=== PATIENT | female | born 1970 | race Caucasian/White ===

== ENCOUNTER 2016-03-19 21:36 | Observation (INO) | payer OTHER ==
[2016-03-19] MEDS ORDERED: Sodium Chloride 0.9% 1000 ML 1,000 ML ONE ×2 (22:09→23:31)
[2016-03-19] MEDS ORDERED: Zofran 4 MG/2 ML VIAL IV ONE (22:10)
[2016-03-19] MEDS ORDERED: Sodium Chloride 0.9% 1000 ML 1,000 ML IV STA ×2 (22:10→23:11)
[2016-03-19 22:16] LABS: BASOPHIL % 0.4 % (0.0-0.4); Lymphocytes % 25.7 % (24.0-44.0); Mean Corpuscular Hemoglobin 29.7 pg (26-32); Mean Platelet Volume 9.8 fl (6-9.5); Monocytes % 4.9 % (0.0-12.0); Platelet Count 401 K/mm3 (150-450); Red Blood Count 5.01 M/mm3 (4.1-5.4); White Blood Count 12.5 K/mm3 (4.0-10.5)
[2016-03-19] MEDS ORDERED: Zofran 4 MG/2 ML VIAL ONE (22:36)
[2016-03-19 22:37] LABS: Collection Type CATH
[2016-03-19 22:37] LABS: ALBUMIN 4.5 g/dL (3.4-5.0); ANION GAP 20.7 MEQ/L (5-15); BILIRUBIN,TOTAL 0.6 mg/dL (0.2-1.0); Carbon Dioxide 19.9 mEq/L (21-32); Total Protein 8.4 gm/dL (6.4-8.2)
[2016-03-19 22:38] LABS: Bacteria RARE /HPF (NEGATIVE); COMPLETE URINE MICROSCOPIC? YES; Epithelial Cells RARE /HPF (FEW); Mucus MODERATE /HPF (NEGATIVE)
--- NOTE | 2016-03-19 23:07 | ERPHSYRPT ---
- History of Present Illness Time Seen by Provider: 03/19/16 22:20 Historian: patient Exam Limitations: clinical condition Patient Subjective Stated Complaint: pt arr crying and stating she just wanat it to stop -after taking care of her she has been sick all day with cough and b= vomiting and when her sons got home she couldn't carry on a conversation because she was confused -she can't tell me is she has taken her med or not she has head leg and back pain all day Triage Nursing Assessment: pt is awake and alert and able to answer questions but slow to answer questions Physician History: PATIENT COMPLAINS OF FREQUENT EPISODES OF EMESIS, WATERY DIARRHEA SINCE LAST NIGHT. HAS LOW GRADE FEVER AND PRODUCTIVE COUGH, AND ABDOMNAL CRAMPS. FAMILY STATES PATIENT HAS BEEN LETHARGIC AND CONFUSED ON OCCASION. Timing/Duration: yesterday Activities at Onset: none Quality: cramping Abdominal Pain Onset Location: periumbilical Pain Radiation: no radiation Severity of Pain-Max: mild Severity of Pain-Current: mild Modifying Factors: Improves With: vomiting, other (DIARRHEA) Associated Symptoms: diarrhea, fever/chills, nausea Previous symptoms: same symptoms as today Allergies/Adverse Reactions: Sulfa (Sulfonamide Antibiotics) Allergy (Intermediate, Verified 08/19/15 16:55) [facility] Home Medications: Alprazolam 1 mg [Xanax 1 mg] 2 mg PO TID 02/14/14 [History] Gabapentin [Neurontin] 600 mg PO QID 02/14/14 [History] Hydrocodone/APAP 10/325 mg [[place] 10/325 MG Tablet] 1 tab PO Q4H 02/17/14 [History] Fluoxetine HCl [Prozac] 20 mg PO BID 11/04/14 [History] Hx Tetanus, Diphtheria Vaccination/Date Given: No Hx Influenza Vaccination/Date Given: No Hx Pneumococcal Vaccination/Date Given: No - Review of Systems Constitutional: Fever Eyes: No Symptoms Ears, Nose, & Throat: No Symptoms Respiratory: Cough, No Dyspnea Cardiac: No Symptoms, No Chest Pain, No Edema, No Syncope Abdominal/Gastrointestinal: Abdominal Pain, Nausea, Vomiting, Diarrhea Genitourinary Symptoms: No Symptoms, No Dysuria Musculoskeletal: No Symptoms, No Back Pain, No Neck Pain Skin: No Rash Neurological: No Dizziness, No Focal Weakness, No Sensory Changes Psychological: No Symptoms Endocrine: No Symptoms All Other Systems: Reviewed and Negative - Past Medical History Pertinent Past Medical History: Yes Neurological History: Migraines, Peripheral Neuropathy ENT History: No Pertinent History Cardiac History: No Pertinent History Respiratory History: No Pertinent History Endocrine Medical History: No Pertinent History Musculoskeletal History: Degenerative Disk Disease, Fibromyalgia, Osteoarthritis , Rheumatoid Arthritis, Other GI Medical History: Colitis, Crohns Disease History: No Pertinent History Psycho-Social History: Anxiety, Depression Female Reproductive Disorders: No Pertinent History Other Medical History: DJD - BULGING DISCS. SPONDILOSIS - Past Surgical History Past Surgical History: Yes Neuro Surgical History: No Pertinent History Cardiac: No Pertinent History Respiratory: No Pertinent History Gastrointestinal: Cholecystectomy Genitourinary: No Pertinent History Musculoskeletal: Orthopedic Surgery Female Surgical History: Section Other Surgical History: BACK SURGERY. TOE SURGERY--RECONSTRUCTION - Social History Smoking Status: Never smoker Exposure to second hand smoke: No Drug Use: none Patient Lives Alone: No - Female History Hx Last Menstrual Period: 15 yrs Hx Now: No - Nursing Vital Signs Nursing Vital Signs: Initial Vital Signs Temperature 100.3 F Temperature Source Rectal Pulse Rate 87 Respiratory Rate 14 Blood Pressure 130/100 Pain Intensity 7 - Physical Exam General Appearance: no apparent distress, lethargy (SLIGHT LETHARGIC BUT ANSWERS QUESTIONS APPROPRIATELY) Eye Exam: PERRL/EOMI, eyes nml inspection Ears, Nose, Throat Exam: normal ENT inspection, pharynx normal, moist mucous membranes Neck Exam: normal inspection, non-tender, supple, full range of motion Respiratory Exam: normal breath sounds, lungs clear, No respiratory distress Cardiovascular Exam: regular rate/rhythm, normal heart sounds Gastrointestinal/Abdomen Exam: soft, normal bowel sounds, No tenderness ( MINIMAL PERIUMBILICAL TENDERNESS), No mass Back Exam: normal inspection, normal range of motion, No CVA tenderness, No vertebral tenderness Extremity Exam: normal inspection, normal range of motion, pelvis stable Neurologic Exam: alert, oriented x 3, cooperative, normal mood/affect, nml cerebellar function, sensation nml, No motor deficits Skin Exam: normal color, warm, dry SpO2 Interpretation: normal SpO2: 95 - Radiology Exams Chest X-ray Interpretation: Interpreted by me (RIGHT PERIHILAR INFILTRATE) - CT Exams Abdomen/Pelvis CT Interpretation: Tele-radiologist Report (NO FINDINGS GO SUGGEST APPENDICITIS , NO MUCOSAL WALL THICKENING, NO FREE AIR) Ordered Tests: Active Orders 24 hr Category Date Time Status IV Insertion STAT Care 03/19/16 22:10 Active cath [Cath for Specimen-Straight] STAT Care 03/19/16 22:24 Active ABDOMEN WITHOUT CONTRAST [CT] Stat Exams 03/19/16 22:11 Taken CHEST 1 VIEW (PORTABLE) Stat Exams 03/19/16 22:12 Taken AMYLASE Stat Lab 03/19/16 22:05 Completed BLOOD CULTURE Stat Lab 03/19/16 22:30 Received CBC W DIFF Stat Lab 03/19/16 22:05 Completed CMP Stat Lab 03/19/16 22:05 Completed CULTURE, THROAT Stat Lab 03/19/16 22:12 Received HCG,QUALITATIVE URINE Stat Lab 03/19/16 22:30 Completed STREP SCREEN-BETA A Stat Lab 03/19/16 22:12 Completed UA W/ MICROSCOPIC Stat Lab 03/19/16 22:20 Completed Transfer Order Routine Transfer 03/20/16 00:38 Ordered Medication Summary Generic Name Dose Route Start Last Admin Trade Name Freq PRN Reason Stop Dose Admin Potassium Chloride 100 mls @ 50 mls/hr 03/19/16 23:11 03/19/16 23:35 Potassium Chloride 20 Meq In Water 100ml IV 03/20/16 01:10 50 mls/hr STAT ONE Administration Discontinued Medications Generic Name Dose Route Start Last Admin Trade Name Freq PRN Reason Stop Dose Admin Sodium Chloride 1,000 mls @ 999 mls/hr 03/19/16 22:10 03/19/16 22:37 Sodium Chloride 0.9% 1000 Ml IV 03/19/16 23:10 999 mls/hr .Q1H1M STA Administration Sodium Chloride Confirm 03/19/16 22:09 Sodium Chloride 0.9% 1000 Ml Administered 03/19/16 22:10 Dose 1,000 mls @ ud .ROUTE .STK-MED ONE Sodium Chloride 1,000 mls @ 999 mls/hr 03/19/16 23:11 03/19/16 23:35 Sodium Chloride 0.9% 1000 Ml IV 03/20/16 00:11 999 mls/hr .Q1H1M STA Administration Sodium Chloride Confirm 03/19/16 23:31 Sodium Chloride 0.9% 1000 Ml Administered 03/19/16 23:32 Dose 1,000 mls @ ud .ROUTE .STK-MED ONE Potassium Chloride Confirm 03/19/16 23:31 Potassium Chloride 20 Meq In Water 100ml Administered 03/19/16 23:32 Dose 100 mls @ ud IV .STK-MED ONE Ceftriaxone Sodium/Dextrose 50 mls @ 100 mls/hr 03/20/16 00:10 03/20/16 00:36 Rocephin 1 Gm-D5w 50 Ml Bag IV 03/20/16 00:39 100 mls/hr STAT ONE Administration Ceftriaxone Sodium/Dextrose Confirm 03/20/16 00:19 Rocephin 1 Gm-D5w 50 Ml Bag Administered 03/20/16 00:20 Dose 50 mls @ ud IV .STK-MED ONE Ondansetron HCl 4 mg 03/19/16 22:10 03/19/16 22:37 Zofran 4 Mg/2 Ml Vial IV 03/19/16 22:11 4 mg STAT ONE Administration Ondansetron HCl Confirm 03/19/16 22:36 Zofran 4 Mg/2 Ml Vial Administered 03/19/16 22:37 Dose 4 mg .ROUTE .STK-MED ONE Lab/Rad Data: Laboratory Result Diagrams 03/19/16 22:05 03/19/16 22:05 Laboratory Results 03/19/16 03/19/16 03/19/16 Range/Units 22:30 22:20 22:12 WBC (4.0-10.5) K/mm3 RBC (4.1-5.4) M/mm3 Hgb (12.0-16.0) gm/dl Hct (35-47) % MCV (78-100) fl MCH (26-32) pg MCHC (32-36) g/dl RDW (11.5-14.0) % Plt Count (150-450) K/mm3 MPV (6-9.5) fl Gran % (36.0-66.0) % Lymphocytes % (24.0-44.0) % Monocytes % (0.0-12.0) % Eosinophils % (0.00-5.0) % Basophils % (0.0-0.4) % Basophils # (0-0.4) Sodium (136-145) mEq/L Potassium (3.5-5.1) mEq/L Chloride (98-107) mEq/L Carbon Dioxide (21-32) mEq/L Anion Gap (5-15) MEQ/L BUN (9-20) mg/dL Creatinine (0.55-1.30) mg/dl Estimated GFR ML/MIN Glucose (70-110) MG/DL Calcium (8.5-10.1) mg/dL Total Bilirubin (0.2-1.0) mg/dL AST (15-37) U/L ALT (12-78) U/L Alkaline Phosphatase (46-116) U/L Serum Total Protein (6.4-8.2) gm/dL Albumin (3.4-5.0) g/dL Amylase (25-115) U/L Ur Collection Type CATH Urine Color STRAW (YELLOW) Urine Appearance CLEAR (CLEAR) Urine pH 6.0 (5-6) Ur Specific [place] >=1.030 (1.005-1.025) Urine Protein 100 (Negative) Urine Glucose (UA) NEGATIVE (NEGATIVE) mg/dL Urine Ketones SMALL-15 (NEGATIVE) Urine Nitrite NEGATIVE (NEGATIVE) Urine Bilirubin MODERATE (NEGATIVE) Urine Urobilinogen 0.2 (0-1) mg/dL Urine WBC (Auto) NEGATIVE (NEGATIVE) Urine RBC (Auto) MODERATE (0-5) Damien/ul Urine Microscopic RBC 5-10 (0-2) /HPF Ur Epithelial Cells RARE (FEW) /HPF Urine Bacteria RARE (NEGATIVE) /HPF Urine Mucus MODERATE (NEGATIVE) /HPF Urine HCG, Qual NEGATIVE (Negative) Streptococcus Screen NEGATIVE (Negative) Specimen Received 03/19/16:2220 03/19/16 03/19/16 Range/Units 22:05 22:05 WBC 12.5 H (4.0-10.5) K/mm3 RBC 5.01 (4.1-5.4) M/mm3 Hgb 14.9 (12.0-16.0) gm/dl Hct 46.1 (35-47) % MCV 92.0 (78-100) fl MCH 29.7 (26-32) pg MCHC 32.3 (32-36) g/dl RDW 14.0 (11.5-14.0) % Plt Count 401 (150-450) K/mm3 MPV 9.8 H (6-9.5) fl Gran % 68.0 H (36.0-66.0) % Lymphocytes % 25.7 (24.0-44.0) % Monocytes % 4.9 (0.0-12.0) % Eosinophils % 1.0 (0.00-5.0) % Basophils % 0.4 (0.0-0.4) % Basophils # 0.05 (0-0.4) Sodium 137 (136-145) mEq/L Potassium 3.0 L* (3.5-5.1) mEq/L Chloride 99 (98-107) mEq/L Carbon Dioxide 19.9 L (21-32) mEq/L Anion Gap 20.7 H (5-15) MEQ/L BUN 18 (9-20) mg/dL Creatinine 1.15 (0.55-1.30) mg/dl Estimated GFR 54 ML/MIN Glucose 129 H (70-110) MG/DL Calcium 9.1 (8.5-10.1) mg/dL Total Bilirubin 0.6 (0.2-1.0) mg/dL AST 20 (15-37) U/L ALT 10 L (12-78) U/L Alkaline Phosphatase 101 (46-116) U/L Serum Total Protein 8.4 H (6.4-8.2) gm/dL Albumin 4.5 (3.4-5.0) g/dL Amylase 24 L (25-115) U/L Ur Collection Type Urine Color (YELLOW) Urine Appearance (CLEAR) Urine pH (5-6) Ur Specific [place] (1.005-1.025) Urine Protein (Negative) Urine Glucose (UA) (NEGATIVE) mg/dL Urine Ketones (NEGATIVE) Urine Nitrite (NEGATIVE) Urine Bilirubin (NEGATIVE) Urine Urobilinogen (0-1) mg/dL Urine WBC (Auto) (NEGATIVE) Urine RBC (Auto) (0-5) Damien/ul Urine Microscopic RBC (0-2) /HPF Ur Epithelial Cells (FEW) /HPF Urine Bacteria (NEGATIVE) /HPF Urine Mucus (NEGATIVE) /HPF Urine HCG, Qual (Negative) Streptococcus Screen (Negative) Specimen Received - Progress Progress: improved Progress Note: 03/19/16 23:08 PATIENT GIVEN IV BOLUS NORMAL SALINE 2 LITERS, K-JALEN 20MEQ IVPB, ROCEPHIN 1MG IVPB 03/20/16 00:35 Discussed with : Veronica Will see patient in: hospital (observation) (AT 0035) Counseled pt/family regarding: lab results, diagnosis, need for follow-up, rad results - Departure Time of Disposition: 00:40 Departure Disposition: Observation Clinical Impression: ACUTE GASTROENTERITIS, ACUTE BRONCHITIS, DEHYDRATION, HYPODKALEMIA Condition: Stable Critical Care Time: No Referrals: DEJAN DANIELS MD [Primary Care Provider] -
[2016-03-19] MEDS ORDERED: POTASSIUM CHLORIDE 20 mEq IN WATER 100ML 100 ML IV ONE ×2 (23:11→23:31)
[2016-03-20] MEDS ORDERED: ROCEPHIN 1 Gm-D5w 50 ml Bag** 50 ML IV ONE ×2 (00:10→00:19)
[2016-03-20] MEDS ORDERED: Sodium Chloride 0.9% 1000 ML 1,000 ML IV SCH (01:37)
[2016-03-20] MEDS ORDERED: TYLENOL 325 MG PO PRN (01:37)
[2016-03-20] MEDS ORDERED: POTASSIUM CHLORIDE 20 mEq IN WATER 100ML 100 ML IV ONE (01:58)
[2016-03-20 06:10] LABS: ANION GAP 14.9 MEQ/L (5-15); BLOOD UREA NITROGEN 13 mg/dL (9-20); CHLORIDE 104 mEq/L (98-107); Carbon Dioxide 22.8 mEq/L (21-32); Glucose 102 MG/DL (70-110); Potassium 3.6 mEq/L (3.5-5.1); SODIUM 138 mEq/L (136-145)
--- NOTE | 2016-03-20 09:02 | XRAY ---
Indication: Abdominal pain, emesis, and elevated WBC. History of Crohn's disease. Multiple contiguous axial images obtained through the abdomen and pelvis without contrast as ordered. Comparison: August 19, 2015 Lung bases demonstrate minimal bibasilar dependent atelectasis. Heart is not enlarged. Images through the abdomen is slightly degraded by respiration/motion artifact. Noncontrasted stomach and bowel loops appear nonobstructed. No abnormal bowel wall thickening. Appendix not seen. No free fluid/air. Again cholecystectomy clips. Remaining liver, pancreas, spleen, adrenal glands, kidneys, ureters, bladder, uterus, and aorta appear unremarkable for noncontrast exam. Osseous structures intact again with lumbosacral junction degenerative changes. Impression: Again negative CT abdomen/pelvis without contrast exam. Comment: Preliminary interpretation was made by [facility]. No discrepancy. CT DI is 23.68
--- NOTE | 2016-03-20 09:05 | XRAY ---
Indication: Cough. Comparison: February 17, 2014 Portable chest less inflated again demonstrating normal heart, lungs, and bony thorax.
[2016-03-20] MEDS ORDERED: XANAX 1 MG PO ONE (09:51)
--- NOTE | 2016-03-20 09:59 | PCM.HP ---
History of Present Illness - Chief Complaint Chief Complaint: ACUTE GASTROENTERITIS/DEHYDRATION Date: 03/20/16 History of Present Illness: is a 45 year old female. seen yesterday in the clinic she had been out of her alprazolam for 3 or 4 days and was on 6 mg daily. She was having withdrawal symptoms. She was given new Rx for 4 mg per day but was also having cough, nausea, vomiting, diarrhea and then started having chills and came to ED> This morning she is confused and hallucinating and not oriented to time or place. - Review of Systems Constitutional: Other (Unable to obtain secondary to her mental status. ) Medications & Allergies Home Medications: Home Medication List Alprazolam 1 mg [Xanax 1 mg] 2 mg PO TID 02/14/14 [History Confirmed 03/20] Gabapentin [Neurontin] 600 mg PO QID 02/14/14 [History Confirmed 03/20/16] Hydrocodone/APAP 10/325 mg [[place] 10/325 MG Tablet] 1 tab PO Q4H 02/17/14 [History Confirmed 03/20/16] Amitriptyline HCl 25 mg [Elavil 25 mg] 25 mg PO HS #30 tablet 08/21/15 [Rx ] Bupropion HCl [Bupropion HCl Sr] 150 mg PO BID 03/20/16 [History Confirmed 03/20] Duloxetine HCl [Cymbalta] 60 mg PO DAILY 03/20/16 [History Confirmed 03/20/16] Orphenadrine Citrate 100 mg [Norflex 100 MG Tablet] 100 mg PO BID [History Confirmed 03/20/16] Allergies/Adverse Reactions: Allergies Allergy/AdvReac Type Severity Reaction Status Date / Time Sulfa (Sulfonamide Allergy Intermediate [facility] Verified 08/19/15 16:55 Antibiotics) - Past Medical History Past Medical History: Yes Neurological History: Migraines, Peripheral Neuropathy ENT History: No Pertinent History Cardiac History: No Pertinent History Respiratory History: No Pertinent History Endocrine Medical History: No Pertinent History Musculoskelatal History: Degenerative Disk Disease, Fibromyalgia, Osteoarthritis , Rheumatoid Arthritis, Other GI Medical History: Colitis, Crohns Disease History: No Pertinent History Pyscho-Social History: Anxiety, Depression Reproductive Disorders: No Pertinent History Comment: DJD - BULGING DISCS. SPONDILOSIS, sciatica - Female History Hx Last Menstrual Period: 15 yrs Are you now?: No - Past Surgical History Past Surgical History: Yes Neuro Surgical History: No Pertinent History Cardiac History: No Pertinent History Respiratory Surgery: No Pertinent History GI Surgical History: Cholecystectomy Genitourinary Surgical Hx: No Pertinent History Musculskeletal Surgical Hx: Orthopedic Surgery Female Surgical History: Section Other Surgical History: BACK SURGERY. TOE SURGERY--RECONSTRUCTION - Social History Smoking Status: Former smoker Exposure to second hand smoke: No Alcohol: None Drug Use: none - Physical Exam Vital Signs: Vital Signs - 24 hr Temp Pulse Resp BP BP Pulse Ox 03/20/16 07:16 98 F 87 20 126/68 95 03/20/16 04:00 87 20 94 L 03/20/16 02:12 97.9 F 95 H 24 128/77 96 03/20/16 00:53 95 03/19/16 22:50 87 14 99 03/19/16 22:07 100.3 F 86 20 130/100 95 General Appearance: no apparent distress Neurologic Exam: No oriented x 3, No motor deficits Eye Exam: No scleral icterus, No pale conjunctivae Ears, Nose, Throat Exam: moist mucous membranes Neck Exam: normal inspection, non-tender, supple (mild basilar rales) Respiratory Exam: normal breath sounds, No rhonchi, No wheezing Cardiovascular Exam: regular rate/rhythm, normal heart sounds Gastrointestinal/Abdomen Exam: soft, normal bowel sounds, No tenderness, No distention Extremity Exam: normal inspection, No calf tenderness, No pedal edema Skin Exam: warm, dry, No rash Results - Labs Lab/Micro Results: Lab Results-Last 24 Hours 03/20/16 Range/Units 05:22 Sodium 138 (136-145) mEq/L Potassium 3.6 (3.5-5.1) mEq/L Chloride 104 (98-107) mEq/L Carbon Dioxide 22.8 (21-32) mEq/L Anion Gap 14.9 (5-15) MEQ/L BUN 13 (9-20) mg/dL Creatinine 0.91 (0.55-1.30) mg/dl Estimated GFR > 60 ML/MIN Glucose 102 (70-110) MG/DL Calcium 8.1 L (8.5-10.1) mg/dL Assessment/Plan (1) Altered mental status Current Visit: Yes Status: Acute Qualifiers: Altered mental status type: delirium Qualified Code(s): R41.0 - Disorientation, unspecified Assessment & Plan: with hallucinations currently secondary to her prescribed alprazolam that she abruptly stopped with current hallucinations restart her benzo will continue with decreased dose as prescribed in clinic give her 2mg now then back down to 1 mg four times per day restart her gabapentin and celexa the cxr and ct were normal her hydration appears better rule out influenza treat the withdrawal symptoms home when not hallucinating and oriented and improving Code(s): R41.82 - ALTERED MENTAL STATUS, UNSPECIFIED (2) Depression Current Visit: Yes Status: Acute Code(s): F32.9 - MAJOR DEPRESSIVE DISORDER , SINGLE EPISODE, UNSPECIFIED (3) Sinusitis Current Visit: Yes Status: Acute Code(s): J32.9 - CHRONIC SINUSITIS, UNSPECIFIED (4) History of ulcerative colitis Current Visit: Yes Status: Chronic Code(s): Z87.19 - PERSONAL HISTORY OF OTHER DISEASES OF THE DIGESTIVE SYSTEM
[2016-03-20] MEDS ORDERED: Zithromax 500 MG/ 250 ML NaCl Premix 250 ML IV SCH (10:00)
[2016-03-20] MEDS ORDERED: Prozac 20 MG PO SCH (10:00)
[2016-03-20] MEDS: Cymbalta 30 MG Capsule PO SCH (10:17)
[2016-03-20] MEDS: Wellbutrin SR 150 MG PO SCH ×2 (10:18→22:09)
[2016-03-20] MEDS: ENOXAPARIN SODIUM SQ SCH (10:18)
[2016-03-20] MEDS: NEURONTIN 300 MG PO SCH ×4 (10:18→22:08)
[2016-03-20] MEDS: PROTONIX 40 MG IV IV SCH (10:19)
[2016-03-20] MEDS: XANAX 1 MG PO SCH ×3 (12:41→22:08)
[2016-03-20] MEDS: Norco 10/325 MG Tablet PO PRN ×3 (12:45→22:09)
[2016-03-20] MEDS: DELZICOL PO SCH ×2 (16:53→22:10)
[2016-03-20] MEDS: ROCEPHIN 1 Gm-D5w 50 ml Bag** 50 ML IV SCH (22:48)
[2016-03-21] MEDS: Wellbutrin SR 150 MG PO SCH ×2 (08:04→21:58)
[2016-03-21] MEDS: XANAX 1 MG PO SCH ×4 (08:04→21:58)
[2016-03-21] MEDS: DELZICOL PO SCH (08:05)
[2016-03-21] MEDS: NEURONTIN 300 MG PO SCH ×4 (08:05→21:58)
[2016-03-21] MEDS: ENOXAPARIN SODIUM SQ SCH (08:05)
[2016-03-21] MEDS: Cymbalta 30 MG Capsule PO SCH (08:05)
[2016-03-21] MEDS: Norco 10/325 MG Tablet PO PRN ×3 (08:05→19:44)
[2016-03-21] MEDS: PROTONIX 40 MG IV IV SCH (08:06)
[2016-03-21 08:59] LABS: BASOPHIL % 0.6 % (0.0-0.4); Eosinophil % 2.7 % (0.00-5.0); Granulocytes % 61.9 % (36.0-66.0); Lymphocytes % 29.3 % (24.0-44.0); Mean Cell Volume 95.7 fl (78-100); Mean Corpuscular Hemoglobin 29.7 pg (26-32); Mean Platelet Volume 9.4 fl (6-9.5); Monocytes % 5.5 % (0.0-12.0); Platelet Count 354 K/mm3 (150-450); Red Blood Count 4.37 M/mm3 (4.1-5.4); Red Cell Distribution Width 14.2 % (11.5-14.0); White Blood Count 9.7 K/mm3 (4.0-10.5)
[2016-03-21 09:16] LABS: ANION GAP 14.9 MEQ/L (5-15); BLOOD UREA NITROGEN 12 mg/dL (9-20); CHLORIDE 108 mEq/L (98-107); Carbon Dioxide 23.1 mEq/L (21-32); Glucose 117 MG/DL (70-110); Potassium 3.2 mEq/L (3.5-5.1); SODIUM 143 mEq/L (136-145)
[2016-03-21] MEDS ORDERED: Klor Con 10 MEQ PO ONE (11:49)
[2016-03-21] MEDS: ASACOL HD PO SCH ×2 (13:29→21:58)
--- NOTE | 2016-03-21 18:59 | PCM.NOTE ---
Date and Time: 03/21/161855 Subjective Assessment: her confusion is improving although she is still trying to rationalize some of the things that happened yesterday and not all of this makes since right now with what she is saying. she states she feels very tired and is getting a headache but otherwise starting to feel better and think more clearly. Objective Exam General Appearance: no apparent distress Neurologic Exam: alert, oriented x 3, No slurred speech Skin Exam: warm, dry Neck Exam: non-tender, supple Lymphatic Exam: No adenopathy Respiratory Exam: lungs clear Cardiovascular Exam: regular rate/rhythm, normal heart sounds Gastrointestinal/Abdomen Exam: soft, normal bowel sounds, No tenderness Extremity Exam: normal inspection, No pedal edema OBJECTIVE DATA Vital Signs: Vital Signs - 24 hr Temp Pulse Resp BP Pulse Ox 03/21/16 16:38 97.5 F 84 20 126/80 98 03/21/16 12:42 98.1 F 98 H 20 126/58 98 03/21/16 12:00 20 03/21/16 08:00 20 03/21/16 07:08 97.8 F 82 20 136/78 96 03/21/16 04:00 99.6 F 100 H 18 134/73 95 03/21/16 00:00 99.6 F 100 H 18 124/59 95 03/20/16 20:00 98.7 F 95 H 16 130/87 96 Pain Assessment - Last Documented Pain Intensity 7 Pain Scale Used 0-10 Pain Scale Intake and Output: Intake & Output 03/19/16 03/20/16 03/21/16 03/22/16 11:59 11:59 11:59 11:59 Intake Total 220 1150 600 Output Total 900 Balance 220 1150 -300 Weight 130.589 kg Lab Results: Lab Results-Last 24 Hours 03/21/16 03/21/16 Range/Units 08:54 08:54 WBC 9.7 (4.0-10.5) K/mm3 RBC 4.37 (4.1-5.4) M/mm3 Hgb 13.0 (12.0-16.0) gm/dl Hct 41.8 (35-47) % MCV 95.7 (78-100) fl MCH 29.7 (26-32) pg MCHC 31.1 L (32-36) g/dl RDW 14.2 H (11.5-14.0) % Plt Count 354 (150-450) K/mm3 MPV 9.4 (6-9.5) fl Gran % 61.9 (36.0-66.0) % Lymphocytes % 29.3 (24.0-44.0) % Monocytes % 5.5 (0.0-12.0) % Eosinophils % 2.7 (0.00-5.0) % Basophils % 0.6 (0.0-0.4) % Basophils # 0.06 (0-0.4) Sodium 143 (136-145) mEq/L Potassium 3.2 L (3.5-5.1) mEq/L Chloride 108 H (98-107) mEq/L Carbon Dioxide 23.1 (21-32) mEq/L Anion Gap 14.9 (5-15) MEQ/L BUN 12 (9-20) mg/dL Creatinine 1.02 (0.55-1.30) mg/dl Estimated GFR > 60 ML/MIN Glucose 117 H (70-110) MG/DL Calcium 8.4 L (8.5-10.1) mg/dL Assessment/Plan (1) Altered mental status Current Visit: Yes Status: Acute Qualifiers: Altered mental status type: delirium Qualified Code(s): R41.0 - Disorientation, unspecified Assessment & Plan: still suspect benzo withdraw due to her script running out with her taking as prescribed She is showing improvement now with restart but this am still some slight confusion with trying to rationalize yesterday's hallucinations She had + blood culture but only 1 tube Gram + await final ID continue ceftriaxone suspect contaminant at this time Code(s): R41.82 - ALTERED MENTAL STATUS, UNSPECIFIED (2) Depression Current Visit: Yes Status: Acute Code(s): F32.9 - MAJOR DEPRESSIVE DISORDER , SINGLE EPISODE, UNSPECIFIED (3) Sinusitis Current Visit: Yes Status: Acute Code(s): J32.9 - CHRONIC SINUSITIS, UNSPECIFIED (4) History of ulcerative colitis Current Visit: Yes Status: Chronic Code(s): Z87.19 - PERSONAL HISTORY OF OTHER DISEASES OF THE DIGESTIVE SYSTEM
[2016-03-21] MEDS: ROCEPHIN 1 Gm-D5w 50 ml Bag** 50 ML IV SCH (22:00)
[2016-03-22] MEDS: Norco 10/325 MG Tablet PO PRN (08:13)
[2016-03-22 08:16] VITALS: O2SAT 96
--- NOTE | 2016-03-22 09:23 | PCM.DCORD ---
- Discharge Discharge Date: 03/22/16 Disposition: Home, Self-Care Condition: Stable Prescriptions: Azithromycin 250 mg [Zithromax 250 MG TABLET] 250 mg PO DAILY #3 tablet Medications: Home Medications Alprazolam 1 mg [Xanax 1 mg] 2 mg PO QID 02/14/14 [Confirmed 03/20/16] Gabapentin [Neurontin] 600 mg PO QID 02/14/14 [Confirmed 03/20/16] Hydrocodone/APAP 10/325 mg [[place] 10/325 MG Tablet] 1 tab PO Q4H 02/17/14 [Confirmed 03/20/16] Albuterol Sulfate 6 ml IH Q4HPRN PRN 03/20/16 [Confirmed 03/20/16] Amitriptyline HCl 100 mg PO HS 03/20/16 [Confirmed 03/20/16] Bupropion HCl [Bupropion HCl Sr] 150 mg PO BID 03/20/16 [Confirmed 03/20/16] Duloxetine HCl [Cymbalta] 60 mg PO DAILY 03/20/16 [Confirmed 03/20/16] Medroxyprogesterone Acetate [Depo-Provera] 150 mg IM UD 03/20/16 [Confirmed 02/22] Mesalamine [Delzicol] 800 mg PO TID 03/20/16 [Confirmed 03/20/16] Naproxen [Naprosyn] 500 mg PO BIDPRN PRN 03/20/16 [Confirmed 03/20/16] Orphenadrine Citrate 100 mg [Norflex 100 MG Tablet] 100 mg PO BID [Confirmed 03/20/16] Active Inpatient Medications Acetaminophen (Tylenol 325 Mg) 650 mg PO Q4H PRN PRN PRN Reason: PAIN AND/OR FEVER Stop: 04/19/16 01:36 Last Admin: 03/21/16 13:34 Dose: 650 mg Acetaminophen/Hydrocodone Bitart ([place] 10/325 Mg Tablet) 1 tab PO QID PRN PRN PRN Reason: PAIN Stop: 03/25/16 09:52 Last Admin: 03/22/16 08:13 Dose: 1 tab Alprazolam (Xanax 1 Mg) 1 mg PO QID [facility] Stop: 04/19/16 12:59 Last Admin: 03/21/16 21:58 Dose: 1 mg Amitriptyline HCl (Amitriptyline Hcl 50 Mg Tablet) 100 mg PO HS [facility] Stop: 04/20/16 21:59 Last Admin: 03/21/16 21:58 Dose: 100 mg Bupropion HCl (Wellbutrin Sr 150 Mg) 150 mg PO BID [facility] Stop: 04/19/16 09:59 Last Admin: 03/21/16 21:58 Dose: 150 mg Duloxetine HCl (Cymbalta 30 Mg Capsule) 60 mg PO QAM [facility] Stop: 04/19/16 09:59 Last Admin: 03/21/16 08:05 Dose: 60 mg Enoxaparin Sodium (Enoxaparin Sodium) 40 mg SQ DAILY [facility] Stop: 04/19/16 09:59 Last Admin: 03/21/16 08:05 Dose: 40 mg Gabapentin (Neurontin 300 Mg) 600 mg PO QID [facility] Stop: 04/19/16 09:59 Last Admin: 03/21/16 21:58 Dose: 600 mg Ceftriaxone Sodium/Dextrose (Rocephin 1 Gm-D5w 50 Ml Bag) 50 mls @ 100 mls/ hr IV QPM [facility] Stop: 04/19/16 21:59 Last Admin: 03/21/16 22:00 Dose: 100 mls/hr Mesalamine (Asacol Hd) 800 mg PO TID [facility] Stop: 04/20/16 14:59 Last Admin: 03/21/16 21:58 Dose: 800 mg Pantoprazole Sodium (Protonix 40 Mg Iv) 40 mg IV Q24H10 [facility] Stop: 04/19/16 09:59 Last Admin: 03/21/16 08:06 Dose: 40 mg Follow up with: JOHN MORE [Primary Care Provider] - 1 Week Forms: Patient Portal Information
--- NOTE | 2016-03-22 09:23 | PCM.DS ---
Discharge Summary Date of Admission: 03/20/16 01:35 Date of Discharge: 03/22/16 Admitting Physician: JOHN MORE Primary Care Provider: JOHN MORE Allergies Allergies Sulfa (Sulfonamide Antibiotics) Allergy (Intermediate, Verified 08/19/15 16:55) [facility] Hospital Summary - Hospital Course Hospital Course: She presented with altred mental status and shortness of breath. She had refills remaining on her chronic alprazolam script that she was prescribed to take 6 mg per day but when she got to the pharmacy found out those refills had as they were written >[address] Asmita More had retired she needed an appointment for further refills of this and therefor went about 5 days without any alprazolam. She was seen in the clinic with withdraw symptoms but no hallucinations at that time and started back at a decreased dose at 1 mg four times per day. She however continued to worsen with confusion and was brought to the hospital. She was hallucinating seeing cats in her room that she explained how different staff members were playing with them. After restarting the alprazolam after 1 day she stopped hallucinating. She is under a great deal of family stressors but denies any abuse or misuse of her medications. She had been on chronically for severe panic attack and social phobias and refractory anxiety and depression. She was having acute sinusitis as well and with her initial blood culture report with gram + was on ceftriaxone but this turned out to be 1 of 2 staph epi with no clinical suspicion of bacteremia and thus contaminant. - Vitals & Intake/Output Vital Signs: Vital Signs Temperature 98.6 F 03/22/16 08:00 Pulse Rate 101 H 03/22/16 08:00 Respiratory Rate 20 03/22/16 08:00 Blood Pressure 120/75 03/22/16 08:00 O2 Sat by Pulse Oximetry 96 03/22/16 08:00 Intake & Output: Intake & Output 03/19/16 03/20/16 03/21/16 03/22/16 11:59 11:59 11:59 11:59 Intake Total 220 1150 1190 Output Total 900 Balance 220 1150 290 Weight 130.589 kg - Lab Result Diagrams: 03/21/16 08:54 03/21/16 08:54 Lab Results-Last 24 Hrs: Lab Results-Last 24 Hours 03/21/16 03/21/16 Range/Units 08:54 23:11 Sodium 143 (136-145) mEq/L Potassium 3.2 L (3.5-5.1) mEq/L Chloride 108 H (98-107) mEq/L Carbon Dioxide 23.1 (21-32) mEq/L Anion Gap 14.9 (5-15) MEQ/L BUN 12 (9-20) mg/dL Creatinine 1.02 (0.55-1.30) mg/dl Estimated GFR > 60 ML/MIN Glucose 117 H (70-110) MG/DL Calcium 8.4 L (8.5-10.1) mg/dL Stool Occult Blood NEGATIVE (Negative) Discharge Exam General Appearance: no apparent distress, obese, other (depressed affect) Neurologic Exam: oriented x 3, No confusion, No slurred speech, No aphasia, No dysarthria, No abnormal gait Skin Exam: warm, dry, No rash Eye Exam: PERRL, No scleral icterus, No pale conjunctivae Ears, Nose, Throat Exam: moist mucous membranes Neck Exam: non-tender, supple Lymphatic Exam: No adenopathy Respiratory Exam: normal breath sounds, lungs clear Cardiovascular Exam: regular rate/rhythm, normal heart sounds, normal peripheral pulses Gastrointestinal/Abdomen Exam: soft, normal bowel sounds, No tenderness, No distention Extremity Exam: normal inspection, No calf tenderness, No pedal edema Final Diagnosis/Problem List - Final Discharge Diagnosis/Problem (1) Benzodiazepine withdrawal with delirium Status: Resolved (2) Altered mental status Status: Resolved (3) Depression Status: Acute (4) Sinusitis Status: Acute (5) History of ulcerative colitis Status: Chronic (6) Anxiety Status: Chronic (7) Panic disorder Status: Chronic - Discharge Disposition: Home, Self-Care Condition: Stable Prescriptions: Azithromycin 250 mg [Zithromax 250 MG TABLET] 250 mg PO DAILY #3 tablet Medications: Home Medications Gabapentin [Neurontin] 600 mg PO QID 02/14/14 [Confirmed 03/20/16] Hydrocodone/APAP 10/325 mg [Petal 10/325 MG Tablet] 1 tab PO Q4H 02/17/14 [Confirmed 03/20/16] Albuterol Sulfate 6 ml IH Q4HPRN PRN 03/20/16 [Confirmed 03/20/16] Amitriptyline HCl 100 mg PO HS 03/20/16 [Confirmed 03/20/16] Bupropion HCl [Bupropion HCl Sr] 150 mg PO BID 03/20/16 [Confirmed 03/20/16] Duloxetine HCl [Cymbalta] 60 mg PO DAILY 03/20/16 [Confirmed 03/20/16] Medroxyprogesterone Acetate [Depo-Provera] 150 mg IM UD 03/20/16 [Confirmed 02/22] Mesalamine [Delzicol] 800 mg PO TID 03/20/16 [Confirmed 03/20/16] Naproxen [Naprosyn] 500 mg PO BIDPRN PRN 03/20/16 [Confirmed 03/20/16] AMITRIPTYLINE HCL 50 mg Tab [AMITRIPTYLINE HCL 50 mg Tablet] 100 mg PO HS #0 tablet 03/22/16 Alprazolam 1 mg [Xanax 1 mg] 1 mg PO QID #0 03/22/16 [Confirmed 03/20/16] Azithromycin 250 mg [Zithromax 250 MG TABLET] 250 mg PO DAILY #3 tablet Active Inpatient Medications Acetaminophen (Tylenol 325 Mg) 650 mg PO Q4H PRN PRN PRN Reason: PAIN AND/OR FEVER Stop: 04/19/16 01:36 Last Admin: 03/21/16 13:34 Dose: 650 mg Acetaminophen/Hydrocodone Bitart (Petal 10/325 Mg Tablet) 1 tab PO QID PRN PRN PRN Reason: PAIN Stop: 03/25/16 09:52 Last Admin: 03/22/16 08:13 Dose: 1 tab Alprazolam (Xanax 1 Mg) 1 mg PO QID [facility] Stop: 04/19/16 12:59 Last Admin: 03/21/16 21:58 Dose: 1 mg Amitriptyline HCl (Amitriptyline Hcl 50 Mg Tablet) 100 mg PO HS [facility] Stop: 04/20/16 21:59 Last Admin: 03/21/16 21:58 Dose: 100 mg Bupropion HCl (Wellbutrin Sr 150 Mg) 150 mg PO BID [facility] Stop: 04/19/16 09:59 Last Admin: 03/21/16 21:58 Dose: 150 mg Duloxetine HCl (Cymbalta 30 Mg Capsule) 60 mg PO QAM [facility] Stop: 04/19/16 09:59 Last Admin: 03/21/16 08:05 Dose: 60 mg Enoxaparin Sodium (Enoxaparin Sodium) 40 mg SQ DAILY [facility] Stop: 04/19/16 09:59 Last Admin: 03/21/16 08:05 Dose: 40 mg Gabapentin (Neurontin 300 Mg) 600 mg PO QID [facility] Stop: 04/19/16 09:59 Last Admin: 03/21/16 21:58 Dose: 600 mg Ceftriaxone Sodium/Dextrose (Rocephin 1 Gm-D5w 50 Ml Bag) 50 mls @ 100 mls/ hr IV QPM [facility] Stop: 04/19/16 21:59 Last Admin: 03/21/16 22:00 Dose: 100 mls/hr Mesalamine (Asacol Hd) 800 mg PO TID [facility] Stop: 04/20/16 14:59 Last Admin: 03/21/16 21:58 Dose: 800 mg Pantoprazole Sodium (Protonix 40 Mg Iv) 40 mg IV Q24H10 [facility] Stop: 04/19/16 09:59 Last Admin: 03/21/16 08:06 Dose: 40 mg Instructions: Drug Withdrawal Follow up with: JOHN MORE [Primary Care Provider] - 03/28/16 1:15 pm Forms: Discharge Instructions, Patient Portal Information
[2016-03-22] MEDS: PROTONIX 40 MG IV IV SCH (10:00)
[2016-03-22] MEDS: ASACOL HD PO SCH (10:03)
[2016-03-22] MEDS: Cymbalta 30 MG Capsule PO SCH (10:04)
[2016-03-22] MEDS: NEURONTIN 300 MG PO SCH (10:04)
[2016-03-22] MEDS: Wellbutrin SR 150 MG PO SCH (10:04)
[2016-03-22] MEDS: XANAX 1 MG PO SCH (10:04)
[2016-03-22] MEDS: ENOXAPARIN SODIUM SQ SCH (10:11)
[2016-03-22 12:06] VITALS: BP 116/72; PULSE 96
== END 2016-03-22 12:50 | disposition home or self-care (01) ==
LOC: ED 21:36 → MED SURG 03-20 01:35
PROVIDERS: ADMIT Family Medicine; ATTEND Family Medicine
DX: F19.231 Other psychoactive substance dependence with withdrawal delirium (principal); R41.82 Altered mental status, unspecified; F32.9 Major depressive disorder, single episode, unspecified; J01.90 Acute sinusitis, unspecified; Z87.19 Personal history of other diseases of the digestive system; F41.8 Other specified anxiety disorders
CPT/HCPCS: 36000; 36415; 71010; 74150; 80048; 80053; 81000; 82150; 82272; 84703; 85025; 87040; 87070; 87400; 87430; 87493; 93268; 96360; 96361; 96365; 96374; 99284; G0378; J0456; J0696; J1650; J2405; J3480; P9612

== ENCOUNTER 2017-04-26 13:39 | Observation (INO) | payer MEDICARE ==
--- NOTE | 2017-04-26 14:10 | ERPHSYRPT ---
<NAM OLSON. - Last Filed: 04/26/17 19:26> - History of Present Illness Time Seen by Provider: 04/26/17 14:02 Historian: patient, EMS Exam Limitations: no limitations Patient Subjective Stated Complaint: PT states "I was sitting there and all of a sudden I had pain in my chest that went up into my left jaw and left arm." Triage Nursing Assessment: Pt alert and oriented X 3, skin pwd. Pt stands without difficulty, able to speak in clear full sentences. no apparent respiratory distress. Physician History: The patient is a morbidly obese female brought in by ambulance from home where at approximately 1 PM while seated she developed a sudden onset of left-sided chest pain that was very sharp. Within a few minutes the pain preceded up her left neck into her left shoulder as well as down her left arm. She also had pain straight through to her back. She was sweaty. She was little bit short of breath. She said she got up and stumbled to the neighbors apartment. Soon after the onset of chest pain she started fixing some vegetable soup on her stove. She left the stove on when she went to get her neighbor. She told me she informed the neighbor about the soup that was on the stove and asked him to turn it off. The ambulance arrives and gives the patient 1 nitroglycerin without relief. They also gave her aspirin 324 mg. Currently her pain has subsided significantly. She now says she is slightly confused and feeling weak. Her past medical history is significant for hypertension, diabetes, high cholesterol, osteoarthritis, migraine headaches, fibromyalgia, anxiety, depression, and morbid obesity. She is currently on a list to have gastric bypass and has taken herself off of all of her pain medications. Timing/Duration: hour(s) (1) Activities at Onset: none Quality: sharpness, stabbing Location: substernal Chest Pain Radiation: neck, arm, back Severity of Pain-Max: severe Severity of Pain-Current: mild Modifying Factors: Improves With: nitroglycerin, aspirin Associated Symptoms: shortness of breath, hurts to breathe, diaphoresis, weakness Prior Chest Pain/Cardiac Workup: no prior chest pain Allergies/Adverse Reactions: Sulfa (Sulfonamide Antibiotics) Allergy (Intermediate, Verified 04/26/17 13:48) [facility] Home Medications: Amitriptyline HCl 100 mg PO HS 03/20/16 [History] Duloxetine HCl [Cymbalta] 60 mg PO DAILY 03/20/16 [History] Meloxicam 7.5 mg [Mobic 7.5 MG] 7.5 mg PO DAILY 07/04/16 [History] Hydrochlorothiazide [Hydrochlorothiazide] 25 mg PO DAILY 04/26/17 [History] Liraglutide [Victoza 2-Philippe] 1.8 mg SQ DAILY 04/26/17 [History] Lisinopril [Lisinopril] 10 mg PO DAILY 04/26/17 [History] Metformin HCl Xr 500 mg [Glucophage XR 500 MG] 1,000 mg PO HS 04/26/17 [ History] Pregabalin [Lyrica] 225 mg PO BID 04/26/17 [History] Hx Tetanus, Diphtheria Vaccination/Date Given: Yes Hx Influenza Vaccination/Date Given: Yes Hx Pneumococcal Vaccination/Date Given: No Immunizations Up to Date: Yes - Review of Systems Constitutional: No Fever, No Chills Eyes: No Symptoms Ears, Nose, & Throat: No Symptoms Respiratory: Dyspnea, No Cough Cardiac: Chest Pain Abdominal/Gastrointestinal: No Abdominal Pain, No Nausea, No Vomiting, No Diarrhea Genitourinary Symptoms: No Dysuria Musculoskeletal: No Back Pain, No Neck Pain Skin: No Rash Neurological: No Dizziness, No Focal Weakness, No Sensory Changes Psychological: No Symptoms Endocrine: No Symptoms Hematologic/Lymphatic: No Symptoms Immunological/Allergic: No Symptoms - Past Medical History Pertinent Past Medical History: Yes Neurological History: Migraines, Peripheral Neuropathy ENT History: No Pertinent History Cardiac History: Hypertension Respiratory History: Asthma, Bronchitis, COPD Endocrine Medical History: Diabetes Type II Musculoskeletal History: Arthritis, Fibromyalgia, Osteoarthritis, Rheumatoid Arthritis GI Medical History: Colitis, Crohns Disease History: No Pertinent History Psycho-Social History: Anxiety, Depression Female Reproductive Disorders: No Pertinent History Other Medical History: DJD - BULGING DISCS. SPONDILOSIS, sciatica - Past Surgical History Past Surgical History: Yes Neuro Surgical History: No Pertinent History Cardiac: No Pertinent History Respiratory: No Pertinent History Gastrointestinal: Cholecystectomy Genitourinary: No Pertinent History Musculoskeletal: Orthopedic Surgery Female Surgical History: Section Other Surgical History: BACK SURGERY. TOE SURGERY--RECONSTRUCTION - Social History Smoking Status: Never smoker Exposure to second hand smoke: Yes Drug Use: none Patient Lives Alone: Yes - Female History Hx Last Menstrual Period: depo shot, 19 years ago Hx Now: No - Nursing Vital Signs Nursing Vital Signs: Initial Vital Signs Temperature 98.7 F 04/26/17 13:40 Pulse Rate 112 H 04/26/17 13:40 Respiratory Rate 20 04/26/17 13:40 Blood Pressure 98/80 04/26/17 13:40 O2 Sat by Pulse Oximetry 93 L 04/26/17 13:40 Pain Scale Pain Intensity 2 - Physical Exam General Appearance: mild distress Eye Exam: PERRL/EOMI, eyes nml inspection Ears, Nose, Throat Exam: normal ENT inspection, moist mucous membranes Neck Exam: normal inspection, non-tender, supple, full range of motion Respiratory Exam: normal breath sounds, chest tenderness (palpation of left upper anterior chest reproduces the pain), lungs clear, No respiratory distress Cardiovascular Exam: regular rate/rhythm, normal heart sounds Gastrointestinal/Abdomen Exam: soft, other (obese), No tenderness, No mass Pelvic Exam: not done Rectal Exam: not done Back Exam: normal inspection, No CVA tenderness, No vertebral tenderness Extremity Exam: normal inspection, normal range of motion Neurologic Exam: alert, oriented x 3, cooperative, normal mood/affect, sensation nml, No motor deficits Skin Exam: normal color, warm, dry SpO2 Interpretation: normal SpO2: 93 Oxygen Delivery: Room Air - Course EKG Interpreted by Me: RATE, Sinus Rhythm, NORMAL AXIS, NORMAL ST-T Ordered Tests: Active Orders 24 hr Category Date Time Status Card Grinder Helper STAT Care 04/26/17 14:18 Active EKG-ER Only STAT Care 04/26/17 14:17 Active IV Insertion STAT Care 04/26/17 14:17 Active Oxygen-ED Only NASAL CANNULA 2 lpm Care 04/26/17 14:17 Active Pulse Oximetry (ED) STAT Care 04/26/17 14:17 Active CHEST 2 VIEWS (PA AND LAT) Stat Exams 04/26/17 14:17 Taken CHEST WITH CONTRAST [CT] Stat Exams 04/26/17 15:31 Taken CBC W DIFF Stat Lab 04/26/17 13:31 Completed CMP Stat Lab 04/26/17 13:31 Completed D-DIMER QUANTITATION Stat Lab 04/26/17 13:31 Completed NT PRO BNP Stat Lab 04/26/17 13:31 Completed TROPONIN Q3H Lab 04/26/17 13:31 Completed TROPONIN Q3H Lab 04/26/17 17:35 Completed TROPONIN Q3H Lab 04/26/17 20:30 Ordered TROPONIN Q3H Lab 04/26/17 23:30 Ordered TROPONIN Q3H Lab 04/27/17 02:30 Ordered Medication Summary Discontinued Medications Generic Name Dose Route Start Last Admin Trade Name Freq PRN Reason Stop Dose Admin Al Hydrox/Mg Hydrox/Simethicone Confirm 04/26/17 14:47 Maalox Es 30 Ml Unit Dose Administered 04/26/17 14:48 Dose 30 ml .ROUTE .STK-MED ONE Sodium Chloride 1,000 mls @ 999 mls/hr 04/26/17 15:04 04/26/17 15:05 Sodium Chloride 0.9% 1000 Ml IV 04/26/17 16:04 999 mls/hr .Q1H1M STA Administration Sodium Chloride Confirm 04/26/17 15:02 Sodium Chloride 0.9% 1000 Ml Administered 04/26/17 15:03 Dose 1,000 mls @ ud .ROUTE .STK-MED ONE Ketorolac Tromethamine 30 mg 04/26/17 14:19 04/26/17 14:50 Toradol 30 Mg Injection IV 04/26/17 14:20 30 mg STAT ONE Administration Ketorolac Tromethamine Confirm 04/26/17 14:47 Toradol 30 Mg Injection Administered 04/26/17 14:48 Dose 30 mg .ROUTE .STK-MED ONE Lidocaine HCl Confirm 04/26/17 14:47 Xylocaine Hcl Viscous * Administered 04/26/17 14:48 Dose 1 ml .ROUTE .STK-MED ONE Magnesium Hydroxide 45 ml 04/26/17 14:19 04/26/17 14:50 Gi Cocktail 45 Ml (Maalox/Lidocaine) PO 04/26/17 14:20 45 ml STAT ONE Administration Nitroglycerin 0.4 mg 04/26/17 14:17 04/26/17 14:50 Nitrostat 0.4 Mg (Ed) SL 04/26/17 14:18 0.4 mg STAT ONE Administration Nitroglycerin Confirm 04/26/17 14:47 Nitrostat 0.4 Mg (Ed) Administered 04/26/17 14:48 Dose 0.4 mg SL .STK-MED ONE Ondansetron HCl 4 mg 04/26/17 14:19 04/26/17 14:51 Zofran 4 Mg/2 Ml Vial IV 04/26/17 14:20 4 mg STAT ONE Administration Ondansetron HCl Confirm 04/26/17 14:47 Zofran 4 Mg/2 Ml Vial Administered 04/26/17 14:48 Dose 4 mg .ROUTE .K-MED ONE Lab/Rad Data: Laboratory Result Diagrams 04/26/17 13:31 04/26/17 13:31 Laboratory Results 04/26/17 04/26/17 04/26/17 Range/Units 17:35 13:31 13:31 WBC (4.0-10.5) K/mm3 RBC (4.1-5.4) M/mm3 Hgb (12.0-16.0) gm/dl Hct (35-47) % MCV (78-100) fl MCH (26-32) pg MCHC (32-36) g/dl RDW (11.5-14.0) % Plt Count (150-450) K/mm3 MPV (6-9.5) fl Gran % (36.0-66.0) % Lymphocytes % (24.0-44.0) % Monocytes % (0.0-12.0) % Eosinophils % (0.00-5.0) % Basophils % (0.0-0.4) % Basophils # (0-0.4) D-Dimer 785.67 H* (0-500) ng/mL Sodium (136-145) mEq/L Potassium (3.5-5.1) mEq/L Chloride (98-107) mEq/L Carbon Dioxide (21-32) mEq/L Anion Gap (5-15) MEQ/L BUN (9-20) mg/dL Creatinine (0.55-1.30) mg/dl Estimated GFR ML/MIN Glucose (70-110) MG/DL Calcium (8.5-10.1) mg/dL Total Bilirubin (0.2-1.0) mg/dL AST (15-37) U/L ALT (12-78) U/L Alkaline Phosphatase (46-116) U/L Troponin I < 0.017 < 0.017 (0.000-0.056) ng/ml NT-Pro-B Natriuret Pep (0-125) pg/ml Serum Total Protein (6.4-8.2) gm/dL Albumin (3.4-5.0) g/dL 04/26/17 04/26/17 Range/Units 13:31 13:31 WBC 13.9 H (4.0-10.5) K/mm3 RBC 5.20 (4.1-5.4) M/mm3 Hgb 15.8 (12.0-16.0) gm/dl Hct 48.9 H (35-47) % MCV 94.0 (78-100) fl MCH 30.4 (26-32) pg MCHC 32.3 (32-36) g/dl RDW 14.2 H (11.5-14.0) % Plt Count 395 (150-450) K/mm3 MPV 10.6 H (6-9.5) fl Gran % 62.1 (36.0-66.0) % Lymphocytes % 29.5 (24.0-44.0) % Monocytes % 6.2 (0.0-12.0) % Eosinophils % 1.5 (0.00-5.0) % Basophils % 0.7 (0.0-0.4) % Basophils # 0.10 (0-0.4) D-Dimer (0-500) ng/mL Sodium 138 (136-145) mEq/L Potassium 4.1 (3.5-5.1) mEq/L Chloride 100 (98-107) mEq/L Carbon Dioxide 23.2 (21-32) mEq/L Anion Gap 19.2 H (5-15) MEQ/L BUN 13 (9-20) mg/dL Creatinine 1.24 (0.55-1.30) mg/dl Estimated GFR 49 ML/MIN Glucose 123 H (70-110) MG/DL Calcium 9.6 (8.5-10.1) mg/dL Total Bilirubin 0.80 (0.2-1.0) mg/dL AST 21 (15-37) U/L ALT 16 (12-78) U/L Alkaline Phosphatase 80 (46-116) U/L Troponin I (0.000-0.056) ng/ml NT-Pro-B Natriuret Pep 15 (0-125) pg/ml Serum Total Protein 8.4 H (6.4-8.2) gm/dL Albumin 4.1 (3.4-5.0) g/dL - Progress Progress Note: 04/26/17 19:28 Pt discussed and care transferred to Dr Wade at 19:00. - Departure Clinical Impression: Chest pain Condition: Good Referrals: JOHN MORE [Primary Care Provider] - <JEANNINE WADE - Last Filed: 04/26/17 19:35> - History of Present Illness Nitro Today/Relief: 0.4 mg x 3, provided by EMS, no relief Aspirin Treatment Today: 81 mg x 4, provided by EMS - Progress Progress: improved, re-examined Air Movement: good Progress Note: 04/26/17 19:31 pt taken over from Dr. Olson at change of shift after discussion of tsts and intros and dispo - and had already experienced some delays due to having to await eval pos D DImer adn not perc ing out - this was neg for pneumonia or PE- discussed with pt and Dr More and Dr olson and all agree best to admit on tele for obs to rule out NH due to increased risk with DM; 04/26/17 19:34 Blood Culture(s) Obtained: No Antibiotics given: No Discussed with : Bernarda Will see patient in: hospital (observation) Counseled pt/family regarding: lab results, diagnosis, need for follow-up, rad results - Departure Time of Disposition: 19:34 Departure Disposition: Observation Critical Care Time: No
[2017-04-26] MEDS ORDERED: Nitrostat 0.4 MG (ED) SL ONE ×2 (14:17→14:47)
[2017-04-26] MEDS ORDERED: TORAdol 30 mg Injection IV ONE (14:19)
[2017-04-26] MEDS ORDERED: Zofran 4 MG/2 ML VIAL IV ONE (14:19)
[2017-04-26] MEDS ORDERED: GI COCKTAIL 45 ML (Maalox/Lidocaine) PO ONE (14:19)
[2017-04-26] MEDS ORDERED: XYLOCAINE HCl Viscous ONE (14:47)
[2017-04-26] MEDS ORDERED: Zofran 4 MG/2 ML VIAL ONE (14:47)
[2017-04-26] MEDS ORDERED: MAALOX ES 30 ML UNIT DOSE ONE (14:47)
[2017-04-26] MEDS ORDERED: TORAdol 30 mg Injection ONE (14:47)
[2017-04-26] MEDS ORDERED: Sodium Chloride 0.9% 1000 ML 1,000 ML ONE ×2 (15:02→20:35)
[2017-04-26] MEDS ORDERED: Sodium Chloride 0.9% 1000 ML 1,000 ML IV STA (15:04)
[2017-04-26 15:06] LABS: BASOPHIL % 0.7 % (0.0-0.4); Eosinophil % 1.5 % (0.00-5.0); Eosinophil (Absolute #) 0.21 (0-0.5); Granulocytes % 62.1 % (36.0-66.0); Hematocrit 48.9 % (35-47); Hemoglobin 15.8 gm/dl (12.0-16.0); Lymphocyte (Absolute #) 4.09 (1.0-4.6); Lymphocytes % 29.5 % (24.0-44.0); Mean Corpuscular Hemoglobin 30.4 pg (26-32); Mean Corpuscular Hgb Concent. 32.3 g/dl (32-36); Mean Platelet Volume 10.6 fl (6-9.5); Monocyte (Absolute #) 0.86 (0.0-1.3); Monocytes % 6.2 % (0.0-12.0); Platelet Count 395 K/mm3 (150-450); Red Cell Distribution Width 14.2 % (11.5-14.0); White Blood Count 13.9 K/mm3 (4.0-10.5)
[2017-04-26 15:20] LABS: ALBUMIN 4.1 g/dL (3.4-5.0); ANION GAP 19.2 MEQ/L (5-15); BILIRUBIN,TOTAL 0.8 mg/dL (0.2-1.0); Calcium 9.6 mg/dL (8.5-10.1); Carbon Dioxide 23.2 mEq/L (21-32); Creatinine 1 1.24 mg/dl (0.55-1.30); Potassium 4.1 mEq/L (3.5-5.1); Total Protein 8.4 gm/dL (6.4-8.2)
[2017-04-26] MEDS ORDERED: HOLD METFORMIN PRODUCTS FOR 48 HOURS MC SCH (18:00)
--- NOTE | 2017-04-26 19:42 | XRAY ---
Indication: Chest pain. Elevated d-dimer. Multiple contiguous axial images obtained through the chest using 80 cc Isovue 370 contrast and PE protocol. Comparison: None There is satisfactory opacification of the pulmonary arteries to include the lobar and segmental branches. No filling defect or pulmonary embolus. Heart is not enlarged. Aorta is normal in course and caliber. No pathologic mediastinal/hilar lymphadenopathy. Examination of the lung parenchyma demonstrates mild bilateral dependent atelectasis and minimal left base fibrosis/scarring. No pulmonary mass, infiltrate, or effusion. Bony thorax intact with minimal degenerative changes throughout the spine. Limited upper abdomen demonstrates fatty liver and cholecystectomy clips. Impression: 1. Negative pulmonary embolus. 2. Atelectasis and fibrosis/scarring as detailed. No acute cardiopulmonary abnormalities. 3. Fatty liver. Comment: Preliminary interpretation was made by [facility]. No discrepancy. CTDI 23.69
--- NOTE | 2017-04-26 19:43 | XRAY ---
Indication: Chest pain. Comparison: March 19, 2016. PA/lateral chest demonstrates new minimal lingular fibrosis/scarring. Remaining heart, lungs, and bony thorax normal.
[2017-04-26] MEDS ORDERED: XANAX 1 MG PO PRN (20:43)
[2017-04-26] MEDS ORDERED: MILK OF MAGNESIA 30 ML PO PRN (20:44)
[2017-04-26] MEDS ORDERED: MAALOX ES 30 ML UNIT DOSE PO PRN (20:44)
[2017-04-26] MEDS ORDERED: TYLENOL 325 MG PO PRN (20:44)
[2017-04-26] MEDS ORDERED: Senokot-S Tablet PO PRN (20:44)
[2017-04-26] MEDS ORDERED: NovoLIN R SQ PRN (20:44)
[2017-04-26] MEDS ORDERED: Zofran 4 MG/2 ML VIAL IV PRN (20:44)
[2017-04-26] MEDS ORDERED: Sodium Chloride 0.9% 1000 ML 1,000 ML IV SCH ×2 (20:45→21:00)
[2017-04-26] MEDS: MORPHINE SULFATE 2 MG INJ IV PRN (22:11)
[2017-04-26] MEDS: Pepcid 20 MG VIAL IV SCH (22:47)
[2017-04-26] MEDS ORDERED: Cyclobenzaprine 10 MG PO PRN (23:30)
[2017-04-26] MEDS ORDERED: LYRICA 75 MG CAP PO ONE (23:30)
[2017-04-26] MEDS ORDERED: Cymbalta 30 MG Capsule PO ONE (23:30)
[2017-04-26] MEDS ORDERED: Colace 100 MG PO ONE (23:30)
[2017-04-27] MEDS: MORPHINE SULFATE 2 MG INJ IV PRN ×4 (01:00→23:26)
[2017-04-27 05:12] LABS: Risk Ratio 4.3
[2017-04-27] MEDS: PROVENTIL 2.5 MG/3 ML NEB IH SCH ×4 (06:58→19:52)
--- NOTE | 2017-04-27 08:47 | PCM.HP ---
History of Present Illness - Chief Complaint Chief Complaint: Chest Pain, Diabetes Date: 04/27/17 History of Present Illness: is a 46 year old female. who began having left sided sharp chest pains with movement radiating to the left arm and dull aching in between yesterday am. She is still having these intermittently with some aching. worse with movement. She has been having increased sob with exertion as well and difficulty with moving due to fatigue in general she has sleep apnea but has not been using home oxygen. - Review of Systems Constitutional: No Fever, No Chills Eyes: No Symptoms Ears, Nose, & Throat: No Symptoms Respiratory: Orthopnea, Short Of Breath, Wheezing, No Cough Cardiac: Chest Pain, No Edema, No Syncope Abdominal/Gastrointestinal: No Abdominal Pain, No Nausea, No Vomiting, No Diarrhea Genitourinary Symptoms: No Dysuria Musculoskeletal: No Back Pain, No Neck Pain Skin: No Rash Neurological: No Dizziness, No Focal Weakness, No Sensory Changes Psychological: No Symptoms Endocrine: No Symptoms Hematologic/Lymphatic: No Symptoms Immunological/Allergic: No Symptoms Medications & Allergies Home Medications: Home Medication List Amitriptyline HCl 100 mg PO HS 03/20/16 [History Confirmed 04/26/17] Duloxetine HCl [Cymbalta] 60 mg PO HS 03/20/16 [History Confirmed 04/26/17] Alprazolam 1 mg [Xanax 1 mg] 1 mg PO QID #0 03/22/16 [Rx Confirmed ] Cholecalciferol (Vitamin D3) [Vitamin D3] 2,000 unit PO DAILY 04/26/17 [History Confirmed 04/26/17] Cyclobenzaprine HCl 10 mg [Cyclobenzaprine 10 MG] 10 mg PO TID 04/26/17 [ History Confirmed 04/26/17] Docusate Sodium 100 mg [Colace 100 MG] 100 mg BID 04/26/17 [History Confirmed 04/26/17] Hydrochlorothiazide 25 mg PO DAILY 04/26/17 [History Confirmed 04/26/17] Liraglutide [Victoza 2-Philippe] 1.8 mg SQ DAILY 04/26/17 [History Confirmed 04/26/17 ] Lisinopril 10 mg PO DAILY 04/26/17 [History Confirmed 04/26/17] Pregabalin [Lyrica] 225 mg PO BID 04/26/17 [History Confirmed 04/26/17] Metformin HCl Xr 500 mg [Glucophage XR 500 MG] 1,000 mg PO HS 2 Days tab 04/27/17 [Rx] Allergies/Adverse Reactions: Allergies Allergy/AdvReac Type Severity Reaction Status Date / Time Sulfa (Sulfonamide Allergy Intermediate RSH Verified 04/26/17 13:48 Antibiotics) - Past Medical History Past Medical History: Yes Neurological History: Migraines, Peripheral Neuropathy ENT History: No Pertinent History Cardiac History: Hypertension Respiratory History: Asthma, Bronchitis, COPD Endocrine Medical History: Diabetes Type II Musculoskelatal History: Arthritis, Fibromyalgia, Osteoarthritis, Rheumatoid Arthritis GI Medical History: Colitis, Crohns Disease History: No Pertinent History Pyscho-Social History: Anxiety, Depression Reproductive Disorders: No Pertinent History Comment: DJD - BULGING DISCS. SPONDILOSIS, sciatica - Female History Hx Last Menstrual Period: depo shot, 19 years ago Are you now?: No - Past Surgical History Past Surgical History: Yes Neuro Surgical History: No Pertinent History Cardiac History: No Pertinent History Respiratory Surgery: No Pertinent History GI Surgical History: Cholecystectomy Genitourinary Surgical Hx: No Pertinent History Musculskeletal Surgical Hx: Orthopedic Surgery Female Surgical History: Section Other Surgical History: BACK SURGERY. TOE SURGERY--RECONSTRUCTION - Social History Smoking Status: Former smoker Exposure to second hand smoke: Yes Alcohol: None Drug Use: none - Physical Exam Vital Signs: Vital Signs - 24 hr Temp Pulse Pulse Resp BP Pulse Ox 04/27/17 07:05 98.8 F 90 20 108/66 96 04/27/17 06:58 92 H 20 99 04/27/17 04:00 98.9 F 101 H 20 107/62 94 L 04/26/17 23:44 98.1 F 99 H 18 111/63 93 L 04/26/17 22:53 99.5 F 94 H 20 167/57 95 04/26/17 20:44 98 04/26/17 19:49 98.0 F 88 18 92/46 98 04/26/17 19:28 93 L 04/26/17 19:25 100 H 16 91/74 100 04/26/17 18:01 92 H 16 92/68 93 L 04/26/17 17:24 98.1 F 89 18 92/68 98 04/26/17 16:48 95 H 16 93/61 93 L 04/26/17 15:24 98 H 16 89/54 98 04/26/17 15:00 100 H 18 80/57 97 04/26/17 14:58 96 04/26/17 13:40 98.7 F 116 H 112 H 20 98/80 93 L Oxygen-Last 24 hours O2 Percentage 2 Liters = 28% O2 Percentage 2 Liters = 28% O2 Percentage 2 Liters = 28% General Appearance: no apparent distress, obese Neurologic Exam: alert, oriented x 3, cooperative, normal mood/affect, nml cerebellar function, nml station & gait, sensation nml, No motor deficits Eye Exam: PERRL/EOMI, eyes nml inspection Ears, Nose, Throat Exam: normal ENT inspection, TMs normal, pharynx normal, moist mucous membranes Neck Exam: normal inspection, non-tender, supple, full range of motion Respiratory Exam: normal breath sounds, lungs clear, other (pain reproduced with palpation of left anterior chest wall), No respiratory distress Cardiovascular Exam: regular rate/rhythm, normal heart sounds, normal peripheral pulses Gastrointestinal/Abdomen Exam: soft, normal bowel sounds, No tenderness, No mass Back Exam: normal inspection, normal range of motion, No CVA tenderness, No vertebral tenderness Extremity Exam: normal inspection, normal range of motion, pelvis stable Skin Exam: normal color, warm, dry, No rash Lymphatic Exam: No adenopathy Results - Labs Lab/Micro Results: Accuchecks Date 04/26/17 Time 22:00 Lab Results-Last 24 Hours 04/26/17 04/27/17 04/27/17 Range/Units 23:35 03:00 04:00 Hemoglobin A1c (4.5-6.2) Troponin I < 0.017 < 0.017 (0.000-0.056) ng/ml Triglycerides 241 H (30-200) mg/dL Cholesterol 163 (100-200) mg/dL LDL Cholesterol 91 (5-99) mg/dL HDL Cholesterol 38 (35-60) mg/dL Heart Disease Risk Ratio 4.3 04/27/17 Range/Units 05:00 Hemoglobin A1c 5.5 (4.5-6.2) Troponin I (0.000-0.056) ng/ml Triglycerides (30-200) mg/dL Cholesterol (100-200) mg/dL LDL Cholesterol (5-99) mg/dL HDL Cholesterol (35-60) mg/dL Heart Disease Risk Ratio Accuchecks Date 04/26/17 Time 22:00 - Other Procedures and Tests Respiratory Therapy 04/26/17 23:45 EKG ROUTINE 04/27/17 04:23 Oxygen NASAL CANNULA 2 lpm 04/27/17 07:00 neb [Respiratory Nebulizer] TID 04/27/17 08:46 Schedule Outpt Stress Test Routine 04/28/17 05:00 EKG DAILY 04/29/17 05:00 EKG DAILY Assessment/Plan (1) Chest pain Current Visit: Yes Status: Acute Assessment & Plan: had negative troponins ekg unremarkable and ct chest negative for pe she has atelectasis and scaring she did have it appears about 3L of fluids in the ED likely complicating her hypoxia this am monitor her on the oxygen work on [facility] home oxygen set up outpatient stress testing continue to plan for the gastric bypass surgery as he has planned in the future assuming testing remains unremarkable Code(s): R07.9 - CHEST PAIN, UNSPECIFIED (2) Obesity hypoventilation syndrome Current Visit: Yes Status: Acute Code(s): E66.2 - MORBID (SEVERE) OBESITY WITH ALVEOLAR HYPOVENTILATION (3) Sleep apnea Current Visit: Yes Status: Chronic Qualifiers: Sleep apnea type: obstructive Qualified Code(s): G47.33 - Obstructive sleep apnea (adult) (pediatric) Code(s): G47.30 - SLEEP APNEA, UNSPECIFIED (4) Costochondral chest pain Current Visit: Yes Status: Acute Code(s): R07.1 - CHEST PAIN ON BREATHING (5) Hypoxia Current Visit: Yes Status: Acute Code(s): R09.02 - HYPOXEMIA (6) Type 2 diabetes mellitus Current Visit: Yes Status: Acute Qualifiers: Diabetes mellitus complication status: without complication Diabetes mellitus usp insulin use: without usp use Qualified Code(s): E11.9 - Type 2 diabetes mellitus without complications Assessment & Plan: well controlle don metformin
--- NOTE | 2017-04-27 08:49 | PCM.DCORD ---
- Discharge Discharge Date: 04/27/17 Disposition: Home, Self-Care Condition: Good Prescriptions: Continue Duloxetine HCl [Cymbalta] 60 mg PO HS Amitriptyline HCl 100 mg PO HS Alprazolam 1 mg [Xanax 1 mg] 1 mg PO QID #0 Lisinopril 10 mg PO DAILY Liraglutide [Victoza 2-Philippe] 1.8 mg SQ DAILY Hydrochlorothiazide 25 mg PO DAILY Pregabalin [Lyrica] 225 mg PO BID Docusate Sodium 100 mg [Colace 100 MG] 100 mg BID Cyclobenzaprine HCl 10 mg [Cyclobenzaprine 10 MG] 10 mg PO TID Cholecalciferol (Vitamin D3) [Vitamin D3] 2,000 unit PO DAILY Metformin HCl Xr 500 mg [Glucophage XR 500 MG] 1,000 mg PO HS 2 Days tab Additional Instructions: no metformin for 2 days set up outpatient stress test Follow up with: JOHN MORE [Primary Care Provider] -
[2017-04-27] MEDS: Ecotrin 325 MG PO SCH (09:08)
[2017-04-27] MEDS: Pepcid 20 MG VIAL IV SCH ×2 (09:08→23:26)
[2017-04-27] MEDS ORDERED: NON-FORMULARY ITEM (Cholecalciferol (Vitamin D3) [Vitamin D3] 2,000 UNIT) PO SCH (10:00)
[2017-04-27] MEDS: VITAMIN D PO SCH (10:37)
[2017-04-27] MEDS: XANAX 1 MG PO SCH ×4 (10:37→23:26)
[2017-04-27] MEDS: hydroDIURIL 25 MG PO SCH (10:38)
[2017-04-27] MEDS: Zestril 10 MG PO SCH (10:38)
[2017-04-27] MEDS: LYRICA 75 MG CAP PO SCH ×2 (10:38→23:25)
[2017-04-27] MEDS: Colace 100 MG PO SCH ×2 (10:38→23:25)
[2017-04-27] MEDS: PATIENT OWN MEDICATION SQ SCH (14:54)
[2017-04-27] MEDS ORDERED: NON-FORMULARY ITEM (Duloxetine Hcl [Cymbalta] 60 MG) PO SCH (22:00)
[2017-04-27] MEDS ORDERED: Cymbalta 30 MG Capsule PO SCH (22:00)
[2017-04-28] MEDS: PROVENTIL 2.5 MG/3 ML NEB IH SCH ×2 (06:46→10:48)
[2017-04-28 07:27] VITALS: BP 120/75
--- NOTE | 2017-04-28 08:21 | PCM.DS ---
Discharge Summary Date of Admission: 04/26/17 20:32 Date of Discharge: 04/28/17 Admitting Physician: JOHN MORE Primary Care Provider: JOHN MORE Allergies Allergies Sulfa (Sulfonamide Antibiotics) Allergy (Intermediate, Verified 04/26/17 13:48) [facility] [place] Hospital Summary - Hospital Course Hospital Course: She presented with left sided sharp chest pains with movement and deep breathing but aching in between. EKG and troponins were unremarkable. CT PE protocol without clot. She continued to be short of breath and weak. She has been fatigued and weak for the last months to years. SHe was found to be hypoxic on room air to 86% without other correctable symptosm and felt to be due to her obesity hypoventillation syndrome. She was started on 3L nc O2 and observed and did well on this and was feeling some increased energy on this as well. OUtpatient stress test was scheduled and she was discharged to home. - Vitals & Intake/Output Vital Signs: Vital Signs Temperature 98.7 F 04/28/17 07:26 Pulse Rate 89 04/28/17 07:26 Respiratory Rate 18 04/28/17 07:26 Blood Pressure 120/75 04/28/17 07:26 O2 Sat by Pulse Oximetry 96 04/28/17 07:26 Oxygen-Last Documented O2 Percentage 3 Liters = 32% Intake & Output: Intake & Output 04/25/17 04/26/17 04/27/17 04/28/17 11:59 11:59 11:59 11:59 Intake Total 2144 3039 Output Total 250 950 Balance 1894 2089 Weight 143.8 kg 143.5 kg - Lab Result Diagrams: 04/26/17 13:31 04/26/17 13:31 Lab Results-Last 24 Hrs: Accuchecks Date 04/27/17 Time 11:32 Accucheck Value: 135 Accucheck Value: 108 Accucheck Value: 143 Micro Results-Entire Visit: Accuchecks Date 04/27/17 Time 11:32 Accucheck Value: 135 Accucheck Value: 108 Accucheck Value: 143 - Procedures and Test Procedures and Tests throughout Hospitalization: Therapy Orders & Screens 04/26/17 23:45 EKG ROUTINE Comment: Diagnosis: Chest Pain, Diabetes 04/27/17 04:23 Oxygen NASAL CANNULA 2 lpm Comment: Diagnosis: Chest Pain, Diabetes 04/27/17 07:00 neb [Respiratory Nebulizer] TID Comment: Diagnosis: Chest Pain, Diabetes 04/27/17 08:46 Schedule Outpt Stress Test Routine Comment: Diagnosis: Chest Pain, Diabetes Schedule Outpt Stress Test: Cardiolyte Stress Test Cardiolite Stress Test: Cardiolite Lexiscan 04/28/17 05:00 EKG DAILY Comment: Diagnosis: Chest Pain, Diabetes 04/29/17 05:00 EKG DAILY Comment: Diagnosis: Chest Pain, Diabetes Discharge Exam General Appearance: no apparent distress, alert, obese Neurologic Exam: alert, oriented x 3, cooperative, normal mood/affect, nml cerebellar function, sensation nml, No motor deficits Skin Exam: normal color, warm, dry Eye Exam: PERRL, EOMI, eyes nml inspection Ears, Nose, Throat Exam: normal ENT inspection, pharynx normal, moist mucous membranes Neck Exam: normal inspection, non-tender, supple, full range of motion Respiratory Exam: normal breath sounds, lungs clear, No respiratory distress Cardiovascular Exam: regular rate/rhythm, normal heart sounds Gastrointestinal/Abdomen Exam: soft, No tenderness, No mass Extremity Exam: normal inspection, normal range of motion Back Exam: normal inspection, normal range of motion, No CVA tenderness, No vertebral tenderness Pelvic Exam: deferred Rectal Exam: deferred Final Diagnosis/Problem List - Final Discharge Diagnosis/Problem (1) Chest pain Status: Acute (2) Obesity hypoventilation syndrome Status: Acute (3) Sleep apnea Status: Chronic (4) Costochondral chest pain Status: Acute (5) Hypoxia Status: Acute (6) Type 2 diabetes mellitus Status: Acute - Discharge Discharge Date: 04/28/17 Disposition: Home, Self-Care Condition: Good Prescriptions: Continue Duloxetine HCl [Cymbalta] 60 mg PO HS Amitriptyline HCl 100 mg PO HS Alprazolam 1 mg [Xanax 1 mg] 1 mg PO QID #0 Lisinopril 10 mg PO DAILY Liraglutide [Victoza 2-Philippe] 1.8 mg SQ DAILY Hydrochlorothiazide 25 mg PO DAILY Pregabalin [Lyrica] 225 mg PO BID Docusate Sodium 100 mg [Colace 100 MG] 100 mg BID Cyclobenzaprine HCl 10 mg [Cyclobenzaprine 10 MG] 10 mg PO TID Cholecalciferol (Vitamin D3) [Vitamin D3] 2,000 unit PO DAILY Metformin HCl Xr 500 mg [Glucophage XR 500 MG] 1,000 mg PO HS 2 Days tab Instructions: Chest Pain (DC) Additional Instructions: Wear the oxygen 24 hours per day at 3L nc no metformin for 21 days you have an appointment for a cardiac stress test at [facility] on May 14 at 6:30 AM, follow the instructions given to you by the Respiratory Therapist. Follow up with: JOHN MORE [Primary Care Provider] - 05/05/17 9:30 am
[2017-04-28] MEDS: Zestril 10 MG PO SCH (08:55)
[2017-04-28] MEDS: Colace 100 MG PO SCH (08:56)
[2017-04-28] MEDS: VITAMIN D PO SCH (08:56)
[2017-04-28] MEDS: XANAX 1 MG PO SCH (08:56)
[2017-04-28] MEDS: LYRICA 75 MG CAP PO SCH (08:56)
[2017-04-28] MEDS: Pepcid 20 MG VIAL IV SCH ×2 (08:56→09:01)
[2017-04-28] MEDS: hydroDIURIL 25 MG PO SCH (08:56)
[2017-04-28] MEDS: Ecotrin 325 MG PO SCH (08:56)
[2017-04-28] MEDS: PATIENT OWN MEDICATION SQ SCH (08:59)
[2017-04-28 10:52] VITALS: PULSE 105; O2SAT 97
== END 2017-04-28 11:25 | disposition home or self-care (01) ==
LOC: ED 13:39 → MED SURG 20:32
PROVIDERS: ADMIT Family Medicine; ATTEND Family Medicine
DX: R07.9 Chest pain, unspecified (principal); E66.2 Morbid (severe) obesity with alveolar hypoventilation; G47.30 Sleep apnea, unspecified; R09.02 Hypoxemia; E11.9 Type 2 diabetes mellitus without complications; Z79.899 Other long term (current) drug therapy; Z99.81 Dependence on supplemental oxygen; G62.9 Polyneuropathy, unspecified; M79.7 Fibromyalgia; K50.90 Crohn's disease, unspecified, without complications; F41.8 Other specified anxiety disorders; G47.33 Obstructive sleep apnea (adult) (pediatric); R07.1 Chest pain on breathing; R09.2 Respiratory arrest
CPT/HCPCS: 36000; 36415; 71046; 71260; 80053; 80061; 82962; 83036; 83721; 83880; 84484; 85025; 85379; 93005; 93041; 94150; 94640; 94760; 94761; 96360; 96374; 96375; 99285; G0378; J1885; J2270; J2405; A9270-GY

== ENCOUNTER 2018-11-05 14:43 | Observation (INO) | payer MEDICARE ==
[2018-11-05] MEDS ORDERED: MORPHINE SULFATE 2 MG INJ IV ONE (14:52)
[2018-11-05] MEDS ORDERED: BABY ASPIRIN 81 MG CHEW PO ONE (14:52)
--- NOTE | 2018-11-05 14:58 | ERPHSYRPT ---
- History of Present Illness Time Seen by Provider: 11/05/18 14:56 Historian: patient Physician History: mild to mod persistant anterior chest pain tight today, no injury, nonrad, + nausea Aspirin Treatment Today: provided by ED Allergies/Adverse Reactions: No Known Drug Allergies Allergy (Unverified 11/05/18 15:04) Home Medications: Amitriptyline HCl 100 mg PO HS 03/20/16 [History] Duloxetine HCl [Cymbalta] 60 mg PO HS 03/20/16 [History] Cholecalciferol (Vitamin D3) [Vitamin D3] 2,000 unit PO DAILY 04/26/17 [History] Cyclobenzaprine HCl 10 mg [Cyclobenzaprine 10 MG] 10 mg PO TID 04/26/17 [ History] Docusate Sodium 100 mg [Colace 100 MG] 100 mg BID 04/26/17 [History] Liraglutide [Victoza 2-Philippe] 1.8 mg SQ DAILY 04/26/17 [History] Lisinopril 10 mg PO DAILY 04/26/17 [History] Pregabalin [Lyrica] 225 mg PO BID 04/26/17 [History] hydroCHLOROthiazide [Hydrochlorothiazide] 25 mg PO DAILY 04/26/17 [History] Hx Tetanus, Diphtheria Vaccination/Date Given: Yes Hx Influenza Vaccination/Date Given: Yes Hx Pneumococcal Vaccination/Date Given: No - Review of Systems Constitutional: No Fever Eyes: No Vision Changes Ears, Nose, & Throat: No Nose Congestion Respiratory: No Dyspnea Cardiac: Chest Pain Abdominal/Gastrointestinal: Nausea, No Abdominal Pain Musculoskeletal: No Back Pain Skin: No Rash Neurological: No Focal Weakness - Past Medical History Pertinent Past Medical History: Yes Neurological History: Migraines, Peripheral Neuropathy ENT History: No Pertinent History Cardiac History: Hypertension Respiratory History: Asthma, Bronchitis, COPD Endocrine Medical History: Diabetes Type II Musculoskeletal History: Arthritis, Fibromyalgia, Osteoarthritis, Rheumatoid Arthritis GI Medical History: Colitis, Crohns Disease History: No Pertinent History Psycho-Social History: Anxiety, Depression Female Reproductive Disorders: No Pertinent History Other Medical History: DJD - BULGING DISCS. SPONDILOSIS, sciatica - Past Surgical History Past Surgical History: Yes Neuro Surgical History: No Pertinent History Cardiac: No Pertinent History Respiratory: No Pertinent History Gastrointestinal: Cholecystectomy Genitourinary: No Pertinent History Musculoskeletal: Orthopedic Surgery Female Surgical History: Section Other Surgical History: BACK SURGERY. TOE SURGERY--RECONSTRUCTION - Social History Smoking Status: Former smoker Exposure to second hand smoke: Yes Drug Use: none Patient Lives Alone: Yes - Nursing Vital Signs Nursing Vital Signs: Initial Vital Signs Temperature 98.1 F 11/05/18 14:48 Pulse Rate 86 11/05/18 14:48 Respiratory Rate 20 11/05/18 14:48 Blood Pressure 129/88 11/05/18 14:48 O2 Sat by Pulse Oximetry 97 11/05/18 14:48 Pain Scale Pain Intensity 9 - Physical Exam General Appearance: no apparent distress Eye Exam: PERRL/EOMI, eyes nml inspection Ears, Nose, Throat Exam: moist mucous membranes Neck Exam: normal inspection Respiratory Exam: normal breath sounds Cardiovascular Exam: regular rate/rhythm Gastrointestinal/Abdomen Exam: soft, No tenderness Extremity Exam: normal inspection Neurologic Exam: alert, oriented x 3, cooperative Skin Exam: normal color, warm, dry - Course Nursing assessment & vital signs reviewed: Yes EKG Interpreted by Me: Sinus Rhythm, Other (no stemi) - Radiology Exams Chest X-ray Interpretation: Interpreted by me, Negative - CT Exams Chest CT Interpretation: Discussed w/radiologist, Other (no pe) Ordered Tests: Active Orders 24 hr Category Date Time Status Wastewater Supervisor STAT Care 11/05/18 14:56 Active EKG-ER Only STAT Care 11/05/18 14:52 Active IV Insertion STAT Care 11/05/18 14:52 Active CHEST 1 VIEW (PORTABLE) Stat Exams 11/05/18 14:52 Completed CHEST WITH CONTRAST [CT] Stat Exams 11/05/18 15:45 Taken CBC W DIFF Stat Lab 11/05/18 15:10 Completed CMP Stat Lab 11/05/18 15:10 Completed D-DIMER QUANTITATION Stat Lab 11/05/18 15:10 Completed HCG QUALITATIVE,SERUM Stat Lab 11/05/18 15:10 Completed TROPONIN Q3H Lab 11/05/18 15:10 Completed TROPONIN Q3H Lab 11/05/18 18:00 Ordered TROPONIN Q3H Lab 11/05/18 21:00 Ordered TROPONIN Q3H Lab 11/06/18 00:00 Ordered TROPONIN Q3H Lab 11/06/18 03:00 Ordered Urine Triage Profile Stat Lab 11/05/18 14:52 Uncollected Medication Summary Discontinued Medications Generic Name Dose Route Start Last Admin Trade Name Silvestre PRN Reason Stop Dose Admin Aspirin 324 mg 11/05/18 14:52 11/05/18 15:09 Baby Aspirin 81 Mg Chew PO 11/05/18 14:53 324 mg STAT ONE Administration Aspirin Confirm 11/05/18 15:07 Baby Aspirin 81 Mg Chew Administered 11/05/18 15:08 Dose 324 mg .ROUTE .STK-MED ONE Hydromorphone HCl 1 mg 11/05/18 16:52 11/05/18 17:03 Hydromorphone 1 Mg/Ml Ampule IV 11/05/18 16:53 1 mg STAT ONE Administration Hydromorphone HCl Confirm 11/05/18 17:02 Hydromorphone 1 Mg/Ml Ampule Administered 11/05/18 17:03 Dose 1 mg .ROUTE .STK-MED ONE Morphine Sulfate 2 mg 11/05/18 14:52 11/05/18 15:10 Morphine Sulfate 2 Mg Inj IV 11/05/18 14:53 2 mg STAT ONE Administration Morphine Sulfate Confirm 11/05/18 15:07 Morphine Sulfate 2 Mg Inj Administered 11/05/18 15:08 Dose 2 mg .ROUTE .STK-MED ONE Ondansetron HCl 4 mg 11/05/18 15:37 11/05/18 15:39 Zofran 4 Mg/2 Ml Vial IV 11/05/18 15:38 4 mg STAT ONE Administration Ondansetron HCl Confirm 11/05/18 15:37 Zofran 4 Mg/2 Ml Vial Administered 11/05/18 15:38 Dose 4 mg .ROUTE .STK-MED ONE Pantoprazole Sodium 40 mg 11/05/18 16:42 11/05/18 17:03 Protonix 40 Mg Iv IV 11/05/18 16:43 40 mg STAT ONE Administration Pantoprazole Sodium Confirm 11/05/18 17:02 Protonix 40 Mg Iv Administered 11/05/18 17:03 Dose 40 mg IV .STK-MED ONE Potassium Chloride 20 meq 11/05/18 16:42 11/05/18 17:04 Klor Con 10 Meq PO 11/05/18 16:43 20 meq STAT ONE Administration Potassium Chloride Confirm 11/05/18 17:02 Klor Con 10 Meq Administered 11/05/18 17:03 Dose 20 meq PO .STK-MED ONE Lab/Rad Data: Laboratory Result Diagrams 11/05/18 15:10 11/05/18 15:10 Laboratory Results 11/05/18 11/05/18 11/05/18 Range/Units 15:10 15:10 15:10 WBC (4.0-10.5) K/mm3 RBC (4.1-5.4) M/mm3 Hgb (12.0-16.0) gm/dl Hct (35-47) % MCV (78-100) fl MCH (26-32) pg MCHC (32-36) g/dl RDW (11.5-14.0) % Plt Count (150-450) K/mm3 MPV (6-9.5) fl Gran % (36.0-66.0) % Eos # (Auto) (0-0.5) Absolute Lymphs (auto) (1.0-4.6) Absolute Monos (auto) (0.0-1.3) Lymphocytes % (24.0-44.0) % Monocytes % (0.0-12.0) % Eosinophils % (0.00-5.0) % Basophils % (0.0-0.4) % Absolute Granulocytes (1.4-6.9) Basophils # (0-0.4) D-Dimer 519 H* (215-500) ng/mL Sodium (137-145) mmol/L Potassium (3.5-5.1) mmol/L Chloride (98-107) mmol/L Carbon Dioxide (22-30) mmol/L Anion Gap (5-15) MEQ/L BUN (7-17) mg/dL Creatinine (0.52-1.04) mg/dL Estimated GFR ML/MIN Glucose (74-106) mg/dL Calcium (8.4-10.2) mg/dL Total Bilirubin (0.2-1.3) mg/dL AST (14-36) U/L ALT (0-35) U/L Alkaline Phosphatase (38-126) U/L Troponin I < 0.012 (0.000-0.034) ng/mL Serum Total Protein (6.3-8.2) g/dL Albumin (3.5-5.0) g/dL Serum , Qual NEGATIVE (Negative) 11/05/18 11/05/18 Range/Units 15:10 15:10 WBC 11.2 H (4.0-10.5) K/mm3 RBC 4.42 (4.1-5.4) M/mm3 Hgb 13.2 (12.0-16.0) gm/dl Hct 40.9 (35-47) % MCV 92.5 (78-100) fl MCH 29.9 (26-32) pg MCHC 32.3 (32-36) g/dl RDW 14.0 (11.5-14.0) % Plt Count 310 (150-450) K/mm3 MPV 10.6 H (6-9.5) fl Gran % 60.2 (36.0-66.0) % Eos # (Auto) 0.19 (0-0.5) Absolute Lymphs (auto) 3.37 (1.0-4.6) Absolute Monos (auto) 0.84 (0.0-1.3) Lymphocytes % 30.1 (24.0-44.0) % Monocytes % 7.5 (0.0-12.0) % Eosinophils % 1.7 (0.00-5.0) % Basophils % 0.5 (0.0-0.4) % Absolute Granulocytes 6.74 (1.4-6.9) Basophils # 0.06 (0-0.4) D-Dimer (215-500) ng/mL Sodium 142 (137-145) mmol/L Potassium 3.2 L (3.5-5.1) mmol/L Chloride 111 H (98-107) mmol/L Carbon Dioxide 21 L (22-30) mmol/L Anion Gap 13.1 (5-15) MEQ/L BUN 12 (7-17) mg/dL Creatinine 0.75 (0.52-1.04) mg/dL Estimated GFR > 60.0 ML/MIN Glucose 92 (74-106) mg/dL Calcium 9.1 (8.4-10.2) mg/dL Total Bilirubin 0.30 (0.2-1.3) mg/dL AST 28 (14-36) U/L ALT 11 (0-35) U/L Alkaline Phosphatase 157 H (38-126) U/L Troponin I (0.000-0.034) ng/mL Serum Total Protein 7.4 (6.3-8.2) g/dL Albumin 4.2 (3.5-5.0) g/dL Serum , Qual (Negative) - Progress Progress: improved Air Movement: good Discussed with : Ulises Will see patient in: hospital (observation) Counseled pt/family regarding: lab results, diagnosis, rad results - Departure Departure Disposition: Observation Clinical Impression: Chest pain Qualifiers: Chest pain type: precordial pain Qualified Code(s): R07.2 - Precordial pain Condition: Stable Critical Care Time: No Referrals: JINA DECKER NP [Primary Care Provider] -
[2018-11-05] MEDS ORDERED: BABY ASPIRIN 81 MG CHEW ONE (15:07)
[2018-11-05] MEDS ORDERED: MORPHINE SULFATE 2 MG INJ ONE (15:07)
[2018-11-05 15:14] LABS: BASOPHIL % 0.5 % (0.0-0.4); Basophil (Absolute #) 0.06 (0-0.4); Eosinophil % 1.7 % (0.00-5.0); Eosinophil (Absolute #) 0.19 (0-0.5); Granulocyte Absolute (ANC) 6.74 (1.4-6.9); Granulocytes % 60.2 % (36.0-66.0); Hematocrit 40.9 % (35-47); Hemoglobin 13.2 gm/dl (12.0-16.0); Lymphocyte (Absolute #) 3.37 (1.0-4.6); Lymphocytes % 30.1 % (24.0-44.0); Mean Cell Volume 92.5 fl (78-100); Mean Corpuscular Hemoglobin 29.9 pg (26-32); Mean Corpuscular Hgb Concent. 32.3 g/dl (32-36); Mean Platelet Volume 10.6 fl (6-9.5); Monocyte (Absolute #) 0.84 (0.0-1.3); Monocytes % 7.5 % (0.0-12.0); Platelet Count 310 K/mm3 (150-450); Red Blood Count 4.42 M/mm3 (4.1-5.4); White Blood Count 11.2 K/mm3 (4.0-10.5)
--- NOTE | 2018-11-05 15:14 | XRAY ---
Indication: Chest pain and short of breath. COPD and asthma. Comparison: April 26, 2017. Portable chest demonstrates stable minimal lingula fibrosis/scarring. Remaining heart, lungs, and bony thorax remain normal.
[2018-11-05 15:30] LABS: ALBUMIN 4.2 g/dL (3.5-5.0); ALKALINE PHOSPHATASE 157 U/L (38-126); ANION GAP 13.1 MEQ/L (5-15); BLOOD UREA NITROGEN 12 mg/dL (7-17); CHLORIDE 111 mmol/L (98-107); Calcium 9.1 mg/dL (8.4-10.2); Carbon Dioxide 21 mmol/L (22-30); Creatinine 1 0.75 mg/dL (0.52-1.04); Glucose 92 mg/dL (74-106); Potassium 3.2 mmol/L (3.5-5.1); SGOT/AST 28 U/L (14-36); SGPT/ALT 11 U/L (0-35); SODIUM 142 mmol/L (137-145); Total Protein 7.4 g/dL (6.3-8.2)
[2018-11-05] MEDS ORDERED: Zofran 4 MG/2 ML VIAL IV ONE (15:37)
[2018-11-05] MEDS ORDERED: Zofran 4 MG/2 ML VIAL ONE (15:37)
[2018-11-05] MEDS ORDERED: Klor Con 10 MEQ PO ONE ×3 (16:42→19:15)
[2018-11-05] MEDS ORDERED: PROTONIX 40 MG IV IV ONE ×2 (16:42→17:02)
[2018-11-05] MEDS ORDERED: Hydromorphone 1 mg/ml Ampule IV ONE (16:52)
[2018-11-05] MEDS ORDERED: Hydromorphone 1 mg/ml Ampule ONE (17:02)
[2018-11-05] MEDS ORDERED: NovoLOG Insulin SQ PRN (19:04)
[2018-11-05] MEDS ORDERED: Nitrostat 0.4 MG Tablet SL PRN (19:08)
[2018-11-05] MEDS ORDERED: ENOXAPARIN SODIUM SQ SCH (19:15)
[2018-11-05] MEDS: Zofran 4 MG/2 ML VIAL IV PRN (19:19)
[2018-11-05] MEDS ORDERED: TYLENOL 325 MG PO PRN (19:29)
[2018-11-05] MEDS: DILAUDID 2 MG INJECTION IV PRN (19:56)
[2018-11-05] MEDS: XANAX 1 MG PO SCH (21:31)
[2018-11-05] MEDS: Cyclobenzaprine 10 MG PO SCH (21:31)
[2018-11-05] MEDS: LYRICA 100MG PO SCH (21:32)
[2018-11-05] MEDS: Colace 100 MG PO SCH (21:32)
[2018-11-05] MEDS ORDERED: PATIENT OWN MEDICATION PO SCH (22:00)
--- NOTE | 2018-11-05 22:05 | XRAY ---
Indication: Chest pain, short of breath, nausea, and elevated d-dimer. Multiple contiguous axial images obtained through the chest using IV cc Isovue 370 contrast and PE protocol. Comparison: April 26, 2017. There is satisfactory opacification of the pulmonary arteries. Again no filling defect or pulmonary embolus. Heart is not enlarged. Aorta is normal in course and caliber. Stable tiny subcarinal calcified node. No pathologic mediastinal/hilar lymphadenopathy. Lungs inflated with stable tiny right middle lobe calcified granuloma. No suspicious pulmonary mass, infiltrate, or effusion. Bony thorax intact again with minimal joint changes throughout the spine. Limited upper abdomen again demonstrates fatty liver and cholecystectomy. Interval gastric bypass surgery. Impression: 1. Again negative pulmonary embolus. There remains evidence for old granulomatous disease. No new/acute cardiopulmonary abnormalities. 2. Incidental fatty liver and gastric bypass surgery. CTDI 23.69
[2018-11-05] MEDS: PROVENTIL 2.5 MG/3 ML NEB IH SCH (22:06)
[2018-11-05] MEDS: Advair Hfa 115/21 Common canister IH SCH (22:08)
[2018-11-05 23:18] LABS: Amphetamine,Urine NEGATIVE (NEGATIVE); Barbiturate,Urine NEGATIVE (NEGATIVE); Benzodiazepine,Urine POSITIVE (NEGATIVE); Cocaine,Urine NEGATIVE (NEGATIVE); Methadone,Urine NEGATIVE (NEGATIVE); Opiate,Urine POSITIVE (NEGATIVE); PCP,Urine NEGATIVE (NEGATIVE); THC,Urine NEGATIVE (NEGATIVE)
[2018-11-06 03:05] LABS: Hematocrit 36.6 % (35-47); Hemoglobin 11.7 gm/dl (12.0-16.0); Mean Cell Volume 94.3 fl (78-100); Mean Corpuscular Hemoglobin 30.1 pg (26-32); Mean Platelet Volume 10.4 fl (6-9.5); Platelet Count 269 K/mm3 (150-450); Red Blood Count 3.88 M/mm3 (4.1-5.4); Red Cell Distribution Width 14.2 % (11.5-14.0); White Blood Count 9.3 K/mm3 (4.0-10.5)
[2018-11-06] MEDS: DILAUDID 2 MG INJECTION IV PRN ×2 (03:06→07:52)
[2018-11-06 03:15] LABS: ANION GAP 10.5 MEQ/L (5-15); BLOOD UREA NITROGEN 10 mg/dL (7-17); CHLORIDE 111 mmol/L (98-107); Calcium 8.7 mg/dL (8.4-10.2); Carbon Dioxide 23 mmol/L (22-30); Creatinine 1 0.63 mg/dL (0.52-1.04); Glucose 92 mg/dL (74-106); Potassium 3.7 mmol/L (3.5-5.1); SODIUM 141 mmol/L (137-145)
[2018-11-06] MEDS: Zofran 4 MG/2 ML VIAL IV PRN (04:45)
[2018-11-06] MEDS ORDERED: DUONEB 0.5-3 MG/3 ml Neb IH ONE (06:36)
[2018-11-06] MEDS ORDERED: Spiriva 18 Mcg/Cap Inhaler IH SCH (07:00)
[2018-11-06 07:22] VITALS: BP 121/67
[2018-11-06] MEDS: Advair Hfa 115/21 Common canister IH SCH (07:24)
[2018-11-06] MEDS: PROVENTIL 2.5 MG/3 ML NEB IH SCH (07:24)
[2018-11-06] MEDS ORDERED: PROVENTIL 2.5 MG/3 ML NEB IH ONE (07:24)
[2018-11-06 07:34] VITALS: PULSE 62; O2SAT 100
[2018-11-06 09:18] LABS: Risk Ratio 4.1
[2018-11-06] MEDS ORDERED: Zestril 10 MG PO SCH (10:00)
[2018-11-06] MEDS ORDERED: NON-FORMULARY ITEM (Omeprazole [Omeprazole] 20 MG) PO SCH (10:00)
[2018-11-06] MEDS ORDERED: Ecotrin 325 MG PO SCH (10:00)
[2018-11-06] MEDS ORDERED: VITAMIN D PO SCH (10:00)
[2018-11-06] MEDS ORDERED: NON-FORMULARY ITEM (Cholecalciferol (Vitamin D3) [Vitamin D3] 2,000 UNIT) PO SCH (10:00)
[2018-11-06] MEDS ORDERED: Protonix 40MG Tablet PO SCH (10:00)
--- NOTE | 2018-11-06 10:06 | PCM.DCORD ---
- Discharge Discharge Date: 11/06/18 Disposition: Home, Self-Care Condition: Fair Prescriptions: New Albuterol 2.5 mg/3 ml Neb [Proventil 2.5 mg/3 ml Neb] 2.5 mg IH TIDRT neb Tiotropium [place] Inhaler [Spiriva 18 Mcg/Cap Inhaler] 1 ea IH DAILY inh Acetaminophen 325 mg [Tylenol 325 mg] 650 mg PO Q4H PRN PRN tablet PRN Reason: Pain Aspirin EC 325 mg [Ecotrin 325 MG] 325 mg PO DAILY #30 tablet.ec Continue Amitriptyline HCl 100 mg PO HS Alprazolam 1 mg [Xanax 1 mg] 1 mg PO QID #0 Lisinopril 10 mg PO DAILY Pregabalin [Lyrica] 200 mg PO TID Docusate Sodium 100 mg [Colace 100 MG] 100 mg BID Cyclobenzaprine HCl 10 mg [Cyclobenzaprine 10 MG] 10 mg PO TID Cholecalciferol (Vitamin D3) [Vitamin D3] 2,000 unit PO DAILY Ondansetron HCl [Zofran] 4 mg PO Q6HPRN PRN PRN Reason: Nausea/Vomiting Omeprazole 20 mg PO DAILY Milnacipran HCl [Savella] 50 mg PO BID Diclofenac Sodium Gel [Voltaren GEL] 1 gm TP BIDPRN PRN PRN Reason: Pain Discontinued Metformin HCl Xr 500 mg [Glucophage XR 500 MG] 500 mg PO BID Additional Instructions: Restart your metformin on 11/08/18. Follow up with your primary care provider about seeing the welding supervisor of your choice for further evaluation. You may take naproxen over the counter two times a day with food to help with inflammation and pain. If nurse practitioner Jnia Rojas is unable to see you in the clinic, I am happy to follow up with you. Follow up with: JINA ROJAS CANDLES POURER [Primary Care Provider] - 1 Week
[2018-11-06] MEDS: Colace 100 MG PO SCH (10:21)
[2018-11-06] MEDS: Cyclobenzaprine 10 MG PO SCH (10:22)
[2018-11-06] MEDS: XANAX 1 MG PO SCH (10:22)
[2018-11-06] MEDS: LYRICA 100MG PO SCH (10:23)
[2018-11-06] MEDS ORDERED: PROVENTIL 2.5 MG/3 ML NEB IH SCH (13:00)
--- NOTE | 2018-11-09 09:26 | HP ---
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 She reports that at 1445 hours she was helping at the [facility] by doing dishes and developed chest pain. She reports increased stress this week as her sister has been sick with bronchitis for the past four and a half weeks as well as an anniversary of her father's twin brother's and her niece is having some problems at school. She reports the chest pain was on the left side of her sternum and she felt clammy, sweaty, dizzy and was gasping for air. She took her Albuterol inhaler without much relief. She reports she is supposed to wear 3 liters of oxygen all the time due to asthma and chronic obstructive pulmonary disease but she could not do that working at the [facility]. She went to [facility] and had her blood pressure taken and it was 122/80. According to those who were with her told her that she looked herrera so they decided to come to the emergency room. She reports that the pain comes from her left sternum down to her left thumb. In the emergency room it was under both breast and through to her back. She at first said she has no pain now and then said it was a 5 out of 10. The patient does not have any history of coronary artery disease and does not see a manager interface. She had a stress test that was normal in early spring. REVIEW OF SYSTEMS: No abdominal pain. No diarrhea. No constipation. No fevers. She reports she had a cough off and on all the time. No lower extremity edema. MEDICATIONS: Please see the home medication reconciliation form. Plus she reports she takes inhalers including Spiriva and Albuterol. ALLERGIES: NKDA. PAST MEDICAL HISTORY: Fibromyalgia that is worse in her shoulders and arms. Spondylosis. Osteoarthritis. Rheumatoid arthritis. Crohn's disease. Neuropathy. Chronic obstructive pulmonary disease. Asthma. Obesity. Obstructive sleep apnea. PAST SURGICAL HISTORY: Gastric bypass 01/11/2018. She reports she has lost 72 pounds. Cholecystectomy. section x2. Back surgery. Toe surgery. SOCIAL HISTORY: She denies tobacco or alcohol use. She lives alone. She reports her oldest son lives next door and another son also lives in town. FAMILY HISTORY: Her father is living and had myocardial infarction when he was 68. He is 70 now. Her mother is and had Alzheimer's. PHYSICAL EXAMINATION: VITAL SIGNS: Temperature current 98.2F, temperature max 98.2F, heart rate 83, respiratory rate 18, blood pressure 117 to 141 over 80 to 89, weight 118.3 kg. Oxygen saturation 93 to 99% on room air. GENERAL: The patient is a pleasant talkative lady lying in bed in no acute distress. When I came into the room she was talking on her phone and ended that conversation. CVS: She has a regular rate and rhythm. No murmurs, gallops or rubs are appreciated. CHEST: Clear to auscultation bilaterally. No crackles or wheezes. Some mild tenderness over her sternum. ABDOMEN: Soft, nontender, nondistended with normal bowel sounds. EXTREMITIES: No clubbing, cyanosis or edema. She has +2 radial pulses bilaterally. SKIN: Warm, dry and intact. No blisters. LABORATORY DATA AND TESTS: She had two negative troponins. White blood cell count 11.2. D-dimer was 519. Chest CT was reported as no pulmonary embolism, no new or acute findings per Dr. Kebede's report. Potassium was 3.2, carbon dioxide 21. EKG sinus rhythm with poor R-wave progression. ASSESSMENT AND PLAN: 1) CHEST PAIN: Will plan to rule out for acute myocardial infarction. She has been given aspirin. She has Dilaudid ordered as needed for pain and nitroglycerin. 2) CHRONIC OBSTRUCTIVE PULMONARY DISEASE: Will plan to place her back on her home oxygen requirement. 3) OBSTRUCTIVE SLEEP APNEA: Will plan to use CPAP tonight. 4) FIBROMYALGIA: Will continue with her home medications. 5) DEEP VENOUS THROMBOSIS PROPHYLAXIS: I have started Lovenox.
--- NOTE | 2018-11-09 13:46 | DS ---
DISCHARGE DIAGNOSES: 1) CHEST PAIN. 2) CHRONIC OBSTRUCTIVE PULMONARY DISEASE. 3) OBSTRUCTIVE SLEEP APNEA. 4) FIBROMYALGIA. DISCHARGE PHYSICAL EXAMINATION: VITALS: Temperature current 97.6F, temperature max 98.2F, heart rate 62, respiratory rate 16, blood pressure 121/67. Oxygen saturation 100% on 2 to 3 liters nasal cannula. GENERAL: The patient is pleasant, talkative, lying in bed in no acute distress. CVS: She had a regular rate and rhythm. No murmurs, gallops or rubs. CHEST: Clear to auscultation bilaterally. No crackles or wheezes. ABDOMEN: Soft, nontender, nondistended with normal bowel sounds. EXTREMITIES: No clubbing, cyanosis or edema. SKIN: Warm, dry and intact. HOSPITAL COURSE: 1) CHEST PAIN: She was ruled out for acute myocardial infarction. She was given aspirin 325 mg on admission and will plan to continue this as an outpatient and have her follow up with a np for further evaluation and treatment. She wants to see the np her father sees but cannot remember the name of that np. She is going to follow up with her primary care provider, Miladis Rojas, for that referral if needed. The patient reports she still has some chest pain. We discussed that life threatening causes such as heart attack or pulmonary embolism had been ruled out and seemed more skeletal in nature. She was tender on palpation of the left sternum. I recommended naproxen b.i.d. with food as well as Tylenol. The patient asked if she could go home and use these things at home. 2) CHRONIC OBSTRUCTIVE PULMONARY DISEASE: This was stable during her hospitalization. She was continued on her home level of oxygen by nasal cannula which she stated was 3 liters at home. 3) OBSTRUCTIVE SLEEP APNEA: She was given CPAP at night and states she slept well. 4) FIBROMYALGIA: She was continued on her current medication. 5) DEEP VENOUS THROMBOSIS PROPHYLAXIS: She was given Lovenox while she was in the hospital. FOLLOW UP: She is to follow up with her primary care provider, Miladis Rojas or myself if Miladis is unavailable or is uncomfortable with seeing her in follow up. DISPOSITION: The patient was discharged to home in fair condition.
== END 2018-11-06 11:50 | disposition home or self-care (01) ==
LOC: ED 14:43 → MED SURG 18:01 → INTOOBSV 18:01 → OBSVTOIN 18:01 → ICU 18:30
PROVIDERS: ADMIT Internal Medicine; ATTEND General Practice
DX: R07.9 Chest pain, unspecified (principal); J44.9 Chronic obstructive pulmonary disease, unspecified; G47.33 Obstructive sleep apnea (adult) (pediatric); M79.7 Fibromyalgia; R42 Dizziness and giddiness; Z79.899 Other long term (current) drug therapy
CPT/HCPCS: 36000; 36415; 71045; 71260; 80048; 80053; 80061; 80307; 81025; 82962; 83036; 83721; 83735; 84484; 85025; 85027; 85379; 93005; 93041; 93268; 94150; 94640; 94660; 96374; 96375; 99285; G0378; J1170; J1650; J2270; J2405; J7609; A9270-GY

== ENCOUNTER 2018-11-15 15:26 | Emergency (ER) | payer MEDICARE ==
--- NOTE | 2018-11-15 15:38 | ERPHSYRPT ---
- History of Present Illness Time Seen by Provider: 11/15/18 15:38 Source: patient Exam Limitations: no limitations Physician History: 48 y/o morbidly obese white female with h/o copd presents with coughing and soa since last pm. pt denies cp. denies abd pain. pt received a duoneb at [facility]. pt seen last week for same issue. Timing/Duration: day(s) (1) Cough Quality/Degree: dry cough Possible Cause: frequent episodes Modifying Factors: Improves With: coughing Associated Symptoms: cough International travel in last 2 weeks: No Allergies/Adverse Reactions: No Known Drug Allergies Allergy (Verified 11/15/18 15:50) Home Medications: Amitriptyline HCl 100 mg PO HS 03/20/16 [History] Cholecalciferol (Vitamin D3) [Vitamin D3] 2,000 unit PO DAILY 04/26/17 [History] Cyclobenzaprine HCl 10 mg [Cyclobenzaprine 10 MG] 10 mg PO TID 04/26/17 [ History] Docusate Sodium 100 mg [Colace 100 MG] 100 mg BID 04/26/17 [History] Lisinopril 10 mg PO DAILY 04/26/17 [History] Pregabalin [Lyrica] 200 mg PO TID 04/26/17 [History] Diclofenac Sodium Gel [Voltaren GEL] 1 gm TP BIDPRN PRN 11/05/18 [History] Milnacipran HCl [Savella] 50 mg PO BID 11/05/18 [History] Omeprazole 20 mg PO DAILY 11/05/18 [History] Ondansetron HCl [Zofran] 4 mg PO Q6HPRN PRN 11/05/18 [History] Hx Tetanus, Diphtheria Vaccination/Date Given: Yes Hx Influenza Vaccination/Date Given: Yes Hx Pneumococcal Vaccination/Date Given: No - Review of Systems Constitutional: No Symptoms Eyes: No Symptoms Ears, Nose, & Throat: No Symptoms Respiratory: Cough, Dyspnea (mild) Cardiac: No Symptoms Abdominal/Gastrointestinal: No Symptoms Genitourinary Symptoms: No Symptoms Musculoskeletal: No Symptoms Skin: No Symptoms Neurological: No Symptoms Psychological: No Symptoms Endocrine: No Symptoms Hematologic/Lymphatic: No Symptoms Immunological/Allergic: No Symptoms All Other Systems: Reviewed and Negative - Past Medical History Pertinent Past Medical History: No Neurological History: Migraines ENT History: No Pertinent History Cardiac History: No Pertinent History Respiratory History: Asthma, Bronchitis, COPD, Sleep Apnea Endocrine Medical History: Diabetes Type II Musculoskeletal History: Fibromyalgia, Osteoarthritis, Rheumatoid Arthritis GI Medical History: Crohns Disease, Irritable Bowel History: No Pertinent History Psycho-Social History: Anxiety, Bipolar, Depression Female Reproductive Disorders: No Pertinent History Other Medical History: DJD - BULGING DISCS. SPONDILOSIS, sciatica - Past Surgical History Past Surgical History: Yes (gastric bypas 2018, gallbladde) Neuro Surgical History: No Pertinent History Cardiac: No Pertinent History Respiratory: No Pertinent History Gastrointestinal: Cholecystectomy Genitourinary: No Pertinent History Musculoskeletal: No Pertinent History Female Surgical History: Section Other Surgical History: BACK SURGERY. TOE SURGERY--RECONSTRUCTION - Social History Smoking Status: Never smoker Exposure to second hand smoke: No Drug Use: none Patient Lives Alone: Yes - Nursing Vital Signs Nursing Vital Signs: Initial Vital Signs Temperature 98.6 F 11/15/18 15:32 Pulse Rate 99 H 11/15/18 15:32 Respiratory Rate 24 11/15/18 15:32 Blood Pressure 130/95 11/15/18 15:32 O2 Sat by Pulse Oximetry 99 11/15/18 15:32 Pain Scale Pain Intensity 10 - Physical Exam General Appearance: mild distress, alert, anxiety Eye Exam: PERRL/EOMI, eyes nml inspection Ears, Nose, Throat Exam: normal ENT inspection, moist mucous membranes Neck Exam: normal inspection, non-tender, supple, full range of motion Respiratory Exam: normal breath sounds, lungs clear, airway intact, No chest tenderness, No respiratory distress Cardiovascular Exam: regular rate/rhythm, normal heart sounds, normal peripheral pulses Gastrointestinal/Abdomen Exam: soft, normal bowel sounds, No tenderness Pelvic Exam: not done Rectal Exam: not done Back Exam: normal inspection, normal range of motion, No CVA tenderness, No vertebral tenderness Extremity Exam: normal inspection, normal range of motion, pelvis stable Neurologic Exam: alert, oriented x 3, cooperative, 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 nml as tested Skin Exam: normal color, warm, dry Lymphatic Exam: No adenopathy SpO2 Interpretation: normal O2 Delivery: Room Air - Course Nursing assessment & vital signs reviewed: Yes Ordered Tests: Active Orders 24 hr Category Date Time Status [employer] Ax Consultant STAT Care 11/15/18 15:45 Active IV Insertion STAT Care 11/15/18 15:44 Active Pulse Oximetry (ED) STAT Care 11/15/18 15:44 Active CHEST 1 VIEW (PORTABLE) Stat Exams 11/15/18 15:44 Completed CHEST WITH CONTRAST [CT] Stat Exams 11/15/18 17:19 Taken BMP Stat Lab 11/15/18 16:00 Completed CBC W DIFF Stat Lab 11/15/18 16:00 Completed D-DIMER QUANTITATION Stat Lab 11/15/18 16:00 Completed NT PRO BNP Stat Lab 11/15/18 16:00 Completed Medication Summary Discontinued Medications Generic Name Dose Route Start Last Admin Trade Name Freq PRN Reason Stop Dose Admin Hydrocodone Bitart/Acetaminophen 15 ml 11/15/18 15:46 11/15/18 16:10 Hydrocodone-Acetamin 2.5-108/5 Ml Solution PO 11/15/18 15:47 15 ml STAT STA Administration Hydrocodone Bitart/Acetaminophen Confirm 11/15/18 16:07 Hydrocodone-Acetamin 2.5-108/5 Ml Solution Administered 11/15/18 16:08 Dose 15 ml .ROUTE .STK-MED ONE Hydromorphone HCl 1 mg 11/15/18 18:45 Hydromorphone 1 Mg/Ml Ampule IV 11/15/18 18:46 STAT ONE Sodium Chloride 500 mls @ 500 mls/hr 11/15/18 17:19 11/15/18 18:33 Sodium Chloride 0.9% 500 Ml IV 11/15/18 18:18 Infused .Q1H ONE Infusion Sodium Chloride Confirm 11/15/18 17:24 Sodium Chloride 0.9% 1000 Ml Administered 11/15/18 17:25 Dose 1,000 mls @ ud .ROUTE .STK-MED ONE Methylprednisolone Sodium Succinate 125 mg 11/15/18 15:44 11/15/18 16:10 Solu-Medrol 125 Mg IV 11/15/18 15:45 125 mg STAT ONE Administration Methylprednisolone Sodium Succinate Confirm 11/15/18 16:07 Solu-Medrol 125 Mg Administered 11/15/18 16:08 Dose 125 mg .ROUTE .STK-MED ONE Ondansetron HCl 4 mg 11/15/18 18:46 Zofran 4 Mg/2 Ml Vial IV 11/15/18 18:47 STAT ONE Lab/Rad Data: Laboratory Result Diagrams 11/15/18 16:00 11/15/18 16:00 Laboratory Results 11/15/18 11/15/18 11/15/18 Range/Units 16:00 16:00 16:00 WBC 9.9 (4.0-10.5) K/mm3 RBC 4.37 (4.1-5.4) M/mm3 Hgb 13.2 (12.0-16.0) gm/dl Hct 41.2 (35-47) % MCV 94.3 (78-100) fl MCH 30.2 (26-32) pg MCHC 32.0 (32-36) g/dl RDW 14.0 (11.5-14.0) % Plt Count 304 (150-450) K/mm3 MPV 11.2 H (6-9.5) fl Gran % 69.4 H (36.0-66.0) % Eos # (Auto) 0.29 (0-0.5) Absolute Lymphs (auto) 1.75 (1.0-4.6) Absolute Monos (auto) 0.93 (0.0-1.3) Lymphocytes % 17.7 L (24.0-44.0) % Monocytes % 9.4 (0.0-12.0) % Eosinophils % 2.9 (0.00-5.0) % Basophils % 0.6 (0.0-0.4) % Absolute Granulocytes 6.87 (1.4-6.9) Basophils # 0.06 (0-0.4) D-Dimer 1008 H* (215-500) ng/mL Sodium 141 (137-145) mmol/L Potassium 3.6 (3.5-5.1) mmol/L Chloride 109 H (98-107) mmol/L Carbon Dioxide 21 L (22-30) mmol/L Anion Gap 14.9 (5-15) MEQ/L BUN 9 (7-17) mg/dL Creatinine 0.64 (0.52-1.04) mg/dL Estimated GFR > 60.0 ML/MIN Glucose 88 (74-106) mg/dL Calcium 9.2 (8.4-10.2) mg/dL NT-Pro-B Natriuret Pep 77.1 (0-450) pg/mL - Progress Progress: improved Air Movement: good Progress Note: 11/15/18 16:51 cxr-no acute process 11/15/18 18:48 cta chest-negative for pulmonary emboli. no acute cardiopulmonary process. spoke with dr. dalton. pt to be discharged to home with cough meds and steroids. call office tomorrow to make a follow up appt. Blood Culture(s) Obtained: No Antibiotics given: No Discussed with : Melchor Counseled pt/family regarding: lab results, diagnosis, need for follow-up, rad results - Departure Departure Disposition: Home Clinical Impression: COPD exacerbation Condition: Stable Critical Care Time: No Referrals: J[facility] [employer] [Primary Care Provider] - Instructions: Chronic Obstructive Pulmonary Disease Additional Instructions: take medications as prescribed. call primary care office tomorrow to arrange follow up appointment Prescriptions: Hydrocodone Bit/Acetaminophen [Hydrocodone-Acetaminophen Soln] 10 ml PO Q6H # 120 ml Prednisone 10 mg [Deltasone 10 mg] 10 mg PO TID #12 tablet
[2018-11-15] MEDS ORDERED: solu-MEDROL 125 MG IV ONE (15:44)
[2018-11-15] MEDS ORDERED: HYDROCODONE-ACETAMIN 2.5-108/5 ML SOLUTION PO STA (15:46)
[2018-11-15] MEDS ORDERED: HYDROCODONE-ACETAMIN 2.5-108/5 ML SOLUTION ONE (16:07)
[2018-11-15] MEDS ORDERED: solu-MEDROL 125 MG ONE (16:07)
--- NOTE | 2018-11-15 16:33 | XRAY ---
Exam: AP upright portable chest film from 11/15/2018. Comparison: CT of the chest with IV contrast from 11/05/2018 and AP portable chest film from 11/05/2018. Indication: Cough, no prior chest surgery. Findings: The transverse heart size appears within normal limits. The neha and mediastinal structures appear unremarkable. There is average inflation of the lungs. No airspace infiltrates to suggest pneumonia are seen. Pulmonary vascularity is within normal limits. No pneumothorax or pleural fluid is seen. No acute osseous process is seen. Impression: 1. No infiltrates to suggest pneumonia or other acute cardiopulmonary disease is seen. The findings appear similar to 11/05/2018.
[2018-11-15 16:52] LABS: BASOPHIL % 0.6 % (0.0-0.4); Basophil (Absolute #) 0.06 (0-0.4); Eosinophil % 2.9 % (0.00-5.0); Eosinophil (Absolute #) 0.29 (0-0.5); Granulocyte Absolute (ANC) 6.87 (1.4-6.9); Granulocytes % 69.4 % (36.0-66.0); Hematocrit 41.2 % (35-47); Hemoglobin 13.2 gm/dl (12.0-16.0); Lymphocyte (Absolute #) 1.75 (1.0-4.6); Lymphocytes % 17.7 % (24.0-44.0); Mean Cell Volume 94.3 fl (78-100); Mean Corpuscular Hemoglobin 30.2 pg (26-32); Mean Platelet Volume 11.2 fl (6-9.5); Monocyte (Absolute #) 0.93 (0.0-1.3); Monocytes % 9.4 % (0.0-12.0); Platelet Count 304 K/mm3 (150-450); Red Blood Count 4.37 M/mm3 (4.1-5.4); White Blood Count 9.9 K/mm3 (4.0-10.5)
[2018-11-15 17:13] LABS: ANION GAP 14.9 MEQ/L (5-15); BLOOD UREA NITROGEN 9 mg/dL (7-17); CHLORIDE 109 mmol/L (98-107); Calcium 9.2 mg/dL (8.4-10.2); Carbon Dioxide 21 mmol/L (22-30); Creatinine 1 0.64 mg/dL (0.52-1.04); Glucose 88 mg/dL (74-106); NT PRO BNP 77.1 pg/mL (0-450); Potassium 3.6 mmol/L (3.5-5.1); SODIUM 141 mmol/L (137-145)
[2018-11-15] MEDS ORDERED: Sodium Chloride 0.9% 500 ML 500 ML IV ONE (17:19)
[2018-11-15] MEDS ORDERED: Sodium Chloride 0.9% 1000 ML 1,000 ML ONE (17:24)
[2018-11-15] MEDS ORDERED: Hydromorphone 1 mg/ml Ampule IV ONE (18:45)
[2018-11-15] MEDS ORDERED: Zofran 4 MG/2 ML VIAL IV ONE (18:46)
[2018-11-15] MEDS ORDERED: Hydromorphone 1 mg/ml Ampule ONE (18:55)
[2018-11-15] MEDS ORDERED: Zofran 4 MG/2 ML VIAL ONE (18:55)
[2018-11-15 19:37] VITALS: BP 104/71; PULSE 86; O2SAT 98
--- NOTE | 2018-11-16 10:10 | XRAY ---
Exam: CT of the chest with IV contrast per PE protocol from 11/15/2018. CTDI: 23.69 mGy. Comparison: AP upright portable chest film from 11/15/2018. Indication: 48-year-old female with cough, shortness of breath, elevated d-dimer. Technique: Post-IV contrast axial images were obtained through the chest. PE protocol during automated injection of 100 ML's of Isovue 370 contrast material. Reconstructed sagittal and coronal images were created and reviewed. Findings: Some breathing artifact mildly limits sensitivity of this exam. The main pulmonary artery segment, right and left main pulmonary arteries, and central segmental pulmonary artery branches are fairly well opacified and reveal no definite pulmonary embolus. Small distal emboli cannot be entirely excluded due to breathing artifact. The thoracic aorta appears unremarkable. No abdominal aortic aneurysm or aortic dissection is seen. The heart size is normal without evidence of pericardial effusion. Some small nonspecific mediastinal lymph nodes are seen which are likely reactive or postinflammatory. No pathological lymphadenopathy is seen. A small granulomatous calcification is seen within the subcarinal region. The peripheral lungs reveal no air space disease, interstitial lung changes, pneumothorax, or pleural fluid. No suspicious soft tissue lung nodules are seen. The visualized upper abdomen reveals surgical suture material within the medial aspect of the left upper quadrant, likely due to prior gastric bypass surgery. Some apparent focal fat density is seen near the anterior margin of the ligamentum teres. Surgical clips consistent with prior cholecystectomy are seen. The adrenal glands are of normal size and configuration. The bones reveal no acute fracture or bone destruction. Impression: 1. No evidence of pulmonary embolus is seen to the proximal segmental pulmonary artery branches. Distal emboli cannot be conclusively excluded due to breathing artifact. 2. No other acute cardiopulmonary process seen.
== END 2018-11-15 19:36 | disposition home or self-care (01) ==
LOC: ED 15:26
DX: J44.1 Chronic obstructive pulmonary disease with (acute) exacerbation (principal)
CPT/HCPCS: 36000; 36415; 71045; 71260; 80048; 83880; 85025; 85379; 93041; 94760; 96360; 96374; 96375; 99284; J1170; J2405; J2930; A9270-GY

== ENCOUNTER 2020-03-08 10:25 | Inpatient (IN) | payer MEDICARE ==
[2020-03-08] MEDS ORDERED: solu-MEDROL 125 MG IV ONE (11:01)
[2020-03-08 11:17] LABS: A-aADO2 86; ABG HEMOGLOBIN 14.5; ABG POTASSIUM 3.6 (3.5-5.1); ARTERIAL BLD GAS O2 SATURATION 94.2 % (95-100); ARTERIAL BLOOD GAS BASE EXCESS -0.3 (-2.0-2.0); ARTERIAL BLOOD GAS FIO2 28 %; ARTERIAL BLOOD GAS PCO2 38 mmHg (35-45); ARTERIAL BLOOD GAS PO2 66 mmHg (75-100); ARTERIAL BLOOD GAS pH 7.41 (7.35-7.45); CARBOXYHEMOGLOBIN 1.1 % THgb (0.0-6.9); HCO3- 24.1 (22-28); HGB O2 SAT 92.3 g/dF (94-100); Methhemoglobin 0.9 % (1.4-1.5); paO2 pAO1 0.43
[2020-03-08 11:18] LABS: ABG SITE RIGHT BRACHIAL
[2020-03-08] MEDS ORDERED: solu-MEDROL 125 MG ONE (11:25)
--- NOTE | 2020-03-08 11:48 | ERPHSYRPT ---
- History of Present Illness Time Seen by Provider: 03/08/20 10:46 Source: patient Exam Limitations: no limitations Patient Subjective Stated Complaint: Pt c/o of headache, cough, shortness of breath, chest pain with cough, loss of taste Triage Nursing Assessment: Pt brought self to the ER, vitals wnl, oxygen was 92% on arrival and was placed on 2L NC and it is 95-96%, lungs clear, rates overall pain as 8-9/10, pulses normal, has been around many family members with covid, skin n/w/d, chest pain with cough Physician History: 49 years old female with history of hypertension, hyperlipidemia, CAD, COPD, GERD presented in the ER with 3 days history of cough congestion, body aches/fatigue and tiredness along with increasing shortness of breath. Patient has been around people with positive Covid. Timing/Duration: day(s) (3), gradual onset, worse Cough Quality/Degree: moderate, dry cough Possible Cause: illness exposure Modifying Factors: Improves With: exertion, rest. Worsens With: coughing, deep breath Associated Symptoms: chest pain/soreness, cough, headache, muscle aches, shortness of breath, sore throat, wheezing Allergies/Adverse Reactions: No Known Drug Allergies Allergy (Verified 03/08/20 10:40) Home Medications: Amitriptyline HCl 150 mg PO HS 03/20/16 [History] Cyclobenzaprine HCl 10 mg [Cyclobenzaprine 10 MG] 10 mg PO TID 04/26/17 [History] Docusate Sodium 100 mg [Colace 100 MG] 100 mg BID 04/26/17 [History] Pregabalin [Lyrica] 200 mg PO TID 04/26/17 [History] lisinopriL [Lisinopril] 2.5 mg PO DAILY 04/26/17 [History] Milnacipran HCl [Savella] 100 mg PO BID 11/05/18 [History] Omeprazole 20 mg PO DAILY 11/05/18 [History] Ondansetron HCl [Zofran] 4 mg PO Q6HPRN PRN 11/05/18 [History] Albuterol Sulfate [Albuterol Sulfate Hfa] 2 puffs PO TID 03/08/20 [History] Alprazolam 1 mg [Xanax 1 mg] 1 mg PO BID 03/08/20 [History] Benzonatate [Tessalon Perle] 100 mg PO UD PRN 03/08/20 [History] Buspirone HCl [Buspar] 15 mg PO TID 03/08/20 [History] Celecoxib [Celebrex] 200 mg PO BID 03/08/20 [History] Dapagliflozin/Metformin HCl [Xigduo Xr 10 mg-1,000 mg Tab] 1 tab PO DAILY 03/08/20 [History] Fluticasone/Vilanterol [Breo Ellipta 200-25 Mcg INH] 1 each IH DAILY 03/08/20 [History] Icosapent Ethyl [Vascepa] 2 gm PO BID 03/08/20 [History] Linagliptin [Tradjenta] 5 mg PO DAILY 03/08/20 [History] Liraglutide [Victoza 2-Philippe] 1.2 mg PO DAILY 03/08/20 [History] Tiotropium [place] Inhaler [Spiriva 18 Mcg/Cap Inhaler] 2 ea IH DAILY 03/08/20 [History] Hx Tetanus, Diphtheria Vaccination/Date Given: Yes Hx Influenza Vaccination/Date Given: Yes Hx Pneumococcal Vaccination/Date Given: No Travel Risk - International Travel Have you traveled outside of the country in past 3 weeks: No - Coronavirus Screening Are you exhibiting any of the following symptoms?: Yes Symptoms: Cough: New Onset, Shortness of Breath, Loss of Taste or Smell, Headaches/Body Aches/Fatigue Close contact with a COVID-19 positive Pt in past 14-21 Days: Yes - Review of Systems Constitutional: Fever, Weakness Ears, Nose, & Throat: Nose Congestion Respiratory: Cough, Dyspnea, Wheezing Cardiac: Chest Pain Abdominal/Gastrointestinal: Nausea Genitourinary Symptoms: No Symptoms, No Flank Pain Musculoskeletal: Back Pain Neurological: Headache Psychological: No Symptoms Hematologic/Lymphatic: No Symptoms Immunological/Allergic: No Symptoms - Past Medical History Pertinent Past Medical History: Yes Neurological History: Migraines ENT History: No Pertinent History Cardiac History: No Pertinent History Respiratory History: Asthma, Bronchitis, COPD, Sleep Apnea Endocrine Medical History: Diabetes Type II Musculoskeletal History: Fibromyalgia, Osteoarthritis, Rheumatoid Arthritis GI Medical History: Crohns Disease, Irritable Bowel History: No Pertinent History Psycho-Social History: Anxiety, Bipolar, Depression Female Reproductive Disorders: No Pertinent History Other Medical History: DJD - BULGING DISCS. SPONDILOSIS, sciatica - Past Surgical History Past Surgical History: Yes (gastric bypas 2018, gallbladde) Neuro Surgical History: No Pertinent History Cardiac: Cardiac Catheterization Respiratory: No Pertinent History Gastrointestinal: Cholecystectomy Genitourinary: No Pertinent History Musculoskeletal: No Pertinent History Female Surgical History: Hysterectomy, Section Other Surgical History: BACK SURGERY. TOE SURGERY--RECONSTRUCTION - Social History Smoking Status: Never smoker Exposure to second hand smoke: No Drug Use: none Patient Lives Alone: Yes - Female History Hx Now: No - Nursing Vital Signs Nursing Vital Signs: Initial Vital Signs Temperature 98.2 F 03/08/20 10:29 Pulse Rate 83 03/08/20 10:29 Respiratory Rate 15 03/08/20 10:29 Blood Pressure 113/83 03/08/20 10:29 O2 Sat by Pulse Oximetry 97 03/08/20 10:29 Pain Scale Pain Intensity 4 - Physical Exam General Appearance: no apparent distress Eye Exam: PERRL/EOMI, eyes nml inspection Ears, Nose, Throat Exam: pharyngeal erythema Neck Exam: normal inspection, non-tender, supple, full range of motion Respiratory Exam: airway intact, wheezing Cardiovascular Exam: regular rate/rhythm, normal heart sounds Gastrointestinal/Abdomen Exam: soft, normal bowel sounds Back Exam: normal inspection, normal range of motion Extremity Exam: normal inspection, normal range of motion, pelvis stable Neurologic Exam: alert, oriented x 3, cooperative Skin Exam: normal color SpO2 Interpretation: normal, O2 applied SpO2: 94 O2 Delivery: Nasal Cannula - Course Nursing assessment & vital signs reviewed: Yes EKG Interpreted by Me: RATE (80), Sinus Rhythm, NORMAL AXIS, NORMAL INTERVALS, Q-wave (Inferior Q waves) Ordered Tests: Active Orders 24 hr Category Date Time Status Bedrest with BRP/BSC ROUTINE Activity 03/08/20 16:29 Active Admit as Inpatient ROUTINE Care 03/08/20 16:29 Active Crm Consultant STAT Care 03/08/20 11:02 Completed Code Status Order ROUTINE Care 03/08/20 16:29 Active EKG-ER Only STAT Care 03/08/20 11:01 Completed Fall Protocol Q1H Care 03/08/20 16:29 Active IV Care Q6H Care 03/08/20 16:29 Active IV Insertion STAT Care 03/08/20 11:01 Completed POCT Glucose Check ACHS Care 03/08/20 16:29 Active Pulse Oximetry (ED) STAT Care 03/08/20 11:01 Completed Samir Fuchs ROUTINE Care 03/08/20 16:29 Active Weight,Daily 0600 Care 03/08/20 16:29 Active Consistent Carbohydrate Diet 1800 Calorie Diet 03/08/20 Dinner Completed CHEST 1 VIEW (PORTABLE) Stat Exams 03/08/20 11:02 Completed CHEST WITH CONTRAST [CT] Stat Exams 03/08/20 12:15 Completed ARTERIAL BLOOD GASES Stat Lab 03/08/20 11:12 Completed BLOOD CULTURE Stat Lab 03/08/20 11:50 Received CBC W DIFF AM.LAB Lab 03/09/20 04:00 Ordered CBC W DIFF Stat Lab 03/08/20 11:50 Completed CMP AM.LAB Lab 03/09/20 04:00 Ordered CMP Stat Lab 03/08/20 11:50 Completed D-DIMER QUANTITATIVE Stat Lab 03/08/20 11:50 Completed HCG,QUALITATIVE URINE Stat Lab 03/08/20 11:01 Completed INFLUENZA A+B ALEJANDRO Stat Lab 03/08/20 11:01 Completed Lactic Acid Stat Lab 03/08/20 11:12 Completed MAGNESIUM Stat Lab 03/08/20 11:50 Completed NT PRO BNP Stat Lab 03/08/20 11:50 Completed TROPONIN Q3H Lab 03/08/20 11:50 Completed TROPONIN Q3H Lab 03/08/20 14:28 Completed TROPONIN Q3H Lab 03/08/20 17:15 Completed TROPONIN Q3H Lab 03/08/20 20:15 Ordered TROPONIN Q3H Lab 03/08/20 23:15 Ordered UA W/RFX UR CULTURE Stat Lab 03/08/20 13:04 Completed Oxygen Nasal Cannula 2 lpm RT 03/08/20 16:29 Active Respiratory Therapy Assessment DAILY RT 03/08/20 11:53 Completed Transfer Order Routine Transfer 03/08/20 Completed Medication Summary Generic Name Dose Route Start Last Admin Trade Name Freq PRN Reason Stop Dose Admin Acetaminophen 650 mg 03/08/20 16:29 Tylenol 325 Mg PO 04/07/20 16:28 Q4H PRN PRN PAIN AND/OR FEVER Albuterol Sulfate 4 puff 03/08/20 19:00 Ventolin Common Canister IH 04/07/20 18:59 TIDRT [facility] Albuterol Sulfate 8 gm 03/08/20 22:00 Ventolin Hfa Mdi IH 04/07/20 21:59 TID REYES Alprazolam 1 mg 03/08/20 22:00 Xanax 1 Mg PO 04/07/20 21:59 BID REYES Amitriptyline HCl 150 mg 03/08/20 22:00 Amitriptyline Hcl 50 Mg Tablet PO 04/07/20 21:59 HS REYES Benzonatate 100 mg 03/08/20 18:33 Tessalon Perles 100 Mg PO 04/07/20 18:32 TID PRN PRN COUGH Buspirone HCl 15 mg 03/08/20 22:00 Buspar 5 Mg PO 04/07/20 21:59 TID REYES Celecoxib 200 mg 03/08/20 22:00 Celebrex 100 Mg PO 04/07/20 21:59 BID [facility] Cyclobenzaprine HCl 10 mg 03/08/20 18:45 Cyclobenzaprine 10 Mg PO 04/07/20 18:44 TID PRN REYES Dexamethasone Sodium Phosphate 4 mg 03/08/20 22:00 Decadron 4 Mg Inj IV 04/07/20 21:59 Q12HT [facility] Enoxaparin Sodium 100 mg 03/08/20 20:00 Enoxaparin Sodium SQ 04/07/20 19:59 Q24H [facility] Famotidine 20 mg 03/08/20 22:00 Pepcid 20 Mg Vial IV 04/07/20 21:59 Q12HT [facility] Azithromycin 500 mg in 250 mls @ 250 mls/hr 03/09/20 10:00 Zithromax 500 Mg/ 250 Ml Nacl Premix IV 04/08/20 09:59 Q24H10 [facility] Ceftriaxone Sodium/Dextrose 1 g in 50 mls @ 100 mls/hr 03/09/20 10:00 Rocephin 1 Gm-D5w 50 Ml Bag IV 04/08/20 09:59 Q24H10 [facility] Remdesivir 100 mg/ Sodium 100 mls @ 100 mls/hr 03/09/20 10:00 Chloride IV 03/12/20 10:59 Q24H10 [facility] Insulin Human Lispro 0 unit 03/08/20 16:29 Humalog SQ 04/07/20 16:28 UD PRN HYPERGLYCEMIA Morphine Sulfate 2 mg 03/08/20 16:29 Morphine Sulfate 2 Mg Inj IV 03/13/20 16:28 Q4H PRN PRN PAIN Ondansetron HCl 4 mg 03/08/20 16:29 Zofran 4 Mg/2 Ml Vial IV 04/07/20 16:28 Q6H PRN PRN NAUSEA/VOMITING Tiotropium [place] 1 ea 03/08/20 19:00 Spiriva 18 Mcg/Cap Inhaler IH 04/07/20 18:59 HS REYES Discontinued Medications Generic Name Dose Route Start Last Admin Trade Name Freq PRN Reason Stop Dose Admin Albuterol Sulfate 4 puff 03/08/20 15:00 Ventolin Common Canister IH 04/07/20 14:59 QIDRT REYES Albuterol Sulfate 4 puff 03/08/20 11:50 03/08/20 11:52 Ventolin Common Canister IH 03/08/20 11:51 4 puff STAT ONE Administration Azithromycin 500 mg in 250 mls @ 250 mls/hr 03/08/20 12:16 03/08/20 14:11 Zithromax 500 Mg/ 250 Ml Nacl Premix IV 03/08/20 13:15 Infused STAT STA Infusion Ceftriaxone Sodium/Dextrose 1 g in 50 mls @ 100 mls/hr 03/08/20 12:16 03/08/20 13:26 Rocephin 1 Gm-D5w 50 Ml Bag IV 03/08/20 12:45 Infused STAT STA Infusion Ceftriaxone Sodium/Dextrose Confirm 03/08/20 12:45 Rocephin 1 Gm-D5w 50 Ml Bag Administered 03/08/20 12:46 Dose 1 g in 50 mls @ ud IV .STK-MED ONE Azithromycin Confirm 03/08/20 12:46 Zithromax 500 Mg/ 250 Ml Nacl Premix Administered 03/08/20 12:47 Dose 500 mg in 250 mls @ ud IV .STK-MED ONE Remdesivir 200 mg/ Sodium 250 mls @ 125 mls/hr 03/08/20 13:29 03/08/20 14:37 Chloride IV 12/31/20 15:28 125 mls/hr ONCE ONE Administration Methylprednisolone Sodium Succinate 80 mg 03/08/20 11:01 03/08/20 11:27 Solu-Medrol 125 Mg IV 03/08/20 11:02 80 mg STAT ONE Administration Methylprednisolone Sodium Succinate Confirm 03/08/20 11:25 Solu-Medrol 125 Mg Administered 03/08/20 11:26 Dose 125 mg .ROUTE .STK-MED ONE Lab/Rad Data: Laboratory Result Diagrams 03/08/20 11:50 03/08/20 11:50 Laboratory Results 03/08/20 03/08/20 03/08/20 Range/Units 14:28 13:04 12:25 WBC (4.0-10.5) K/mm3 RBC (4.1-5.4) M/mm3 Hgb (12.0-16.0) gm/dl Hct (35-47) % MCV (78-100) fl MCH (26-32) pg MCHC (32-36) g/dl RDW (11.5-14.0) % Plt Count (150-450) K/mm3 MPV (7.5-11.0) fl Gran % (36.0-66.0) % Eos # (Auto) (0-0.5) Absolute Lymphs (auto) (1.0-4.6) Absolute Monos (auto) (0.0-1.3) Lymphocytes % (24.0-44.0) % Monocytes % (0.0-12.0) % Eosinophils % (0.00-5.0) % Basophils % (0.0-0.4) % Absolute Granulocytes (1.4-6.9) Basophils # (0-0.4) D-Dimer (215-500) ng/mL Puncture Site pCO2 (35-45) mmHg pO2 (75-100) mmHg Base Excess (-2.0-2.0) O2 Saturation (94-100) g/dF ABG pH (7.35-7.45) ABG HCO3 (22-28) ABG O2 Sat (Measured) (95-100) % Quentin Test A-a Gradient a/A Ratio Hemoglobin Carboxyhemoglobin (0.0-6.9) % THgb Methemoglobin (1.4-1.5) % Potassium (3.5-5.1) Temperature C POC O2 Flow Rate % Sodium (137-145) mmol/L Chloride (98-107) mmol/L Carbon Dioxide (22-30) mmol/L Anion Gap (5-15) MEQ/L BUN (7-17) mg/dL Creatinine (0.52-1.04) mg/dL Estimated GFR ML/MIN Glucose (74-106) mg/dL Lactic Acid (0.4-2.0) Calcium (8.4-10.2) mg/dL Magnesium (1.6-2.3) mg/dL Total Bilirubin (0.2-1.3) mg/dL AST (14-36) U/L ALT (0-35) U/L Alkaline Phosphatase (38-126) U/L Troponin I < 0.012 (0.000-0.034) ng/mL NT-Pro-B Natriuret Pep (0-450) pg/mL Serum Total Protein (6.3-8.2) g/dL Albumin (3.5-5.0) g/dL Urine Color YELLOW (YELLOW) Urine Appearance CLEAR (CLEAR) Urine pH 6.0 (5-6) Ur Specific [place] S3 (1.005-1.025) Urine Protein NEGATIVE (Negative) Urine Ketones NEGATIVE (NEGATIVE) Urine Blood NEGATIVE (0-5) Damien/ul Urine Nitrite NEGATIVE (NEGATIVE) Urine Bilirubin NEGATIVE (NEGATIVE) Urine Urobilinogen NEGATIVE (0-1) mg/dL Ur Leukocyte Esterase NEGATIVE (NEGATIVE) Urine WBC (Auto) NONE (0-5) /HPF Urine RBC (Auto) NONE (0-2) /HPF U Epithel Cells (Auto) RARE (FEW) /HPF Urine Bacteria (Auto) NONE (NEGATIVE) /HPF Urine Mucus (Auto) MANY (NEGATIVE) /HPF Urine Culture Reflexed NO (NO) Urine Glucose >=500 (NEGATIVE) mg/dL Urine HCG, Qual (Negative) Influenza Type A Ag (NEGATIVE) Influenza Type B Ag (NEGATIVE) SARS-CoV-2 (PCR) POSITIVE A (NEGATIVE) 03/08/20 03/08/20 03/08/20 Range/Units 11:50 11:50 11:50 WBC (4.0-10.5) K/mm3 RBC (4.1-5.4) M/mm3 Hgb (12.0-16.0) gm/dl Hct (35-47) % MCV (78-100) fl MCH (26-32) pg MCHC (32-36) g/dl RDW (11.5-14.0) % Plt Count (150-450) K/mm3 MPV (7.5-11.0) fl Gran % (36.0-66.0) % Eos # (Auto) (0-0.5) Absolute Lymphs (auto) (1.0-4.6) Absolute Monos (auto) (0.0-1.3) Lymphocytes % (24.0-44.0) % Monocytes % (0.0-12.0) % Eosinophils % (0.00-5.0) % Basophils % (0.0-0.4) % Absolute Granulocytes (1.4-6.9) Basophils # (0-0.4) D-Dimer 1249 H* (215-500) ng/mL Puncture Site pCO2 (35-45) mmHg pO2 (75-100) mmHg Base Excess (-2.0-2.0) O2 Saturation (94-100) g/dF ABG pH (7.35-7.45) ABG HCO3 (22-28) ABG O2 Sat (Measured) (95-100) % Quentin Test A-a Gradient a/A Ratio Hemoglobin Carboxyhemoglobin (0.0-6.9) % THgb Methemoglobin (1.4-1.5) % Potassium 3.5 (3.5-5.1) Temperature C POC O2 Flow Rate % Sodium 140 (137-145) mmol/L Chloride 105 (98-107) mmol/L Carbon Dioxide 27 (22-30) mmol/L Anion Gap 11.7 (5-15) MEQ/L BUN 18 H (7-17) mg/dL Creatinine 0.88 (0.52-1.04) mg/dL Estimated GFR > 60.0 ML/MIN Glucose 83 (74-106) mg/dL Lactic Acid (0.4-2.0) Calcium 8.8 (8.4-10.2) mg/dL Magnesium 2.4 H (1.6-2.3) mg/dL Total Bilirubin 0.40 (0.2-1.3) mg/dL AST 63 H (14-36) U/L ALT 28 (0-35) U/L Alkaline Phosphatase 143 H (38-126) U/L Troponin I < 0.012 (0.000-0.034) ng/mL NT-Pro-B Natriuret Pep 61.4 (0-450) pg/mL Serum Total Protein 7.4 (6.3-8.2) g/dL Albumin 4.2 (3.5-5.0) g/dL Urine Color (YELLOW) Urine Appearance (CLEAR) Urine pH (5-6) Ur Specific [place] (1.005-1.025) Urine Protein (Negative) Urine Ketones (NEGATIVE) Urine Blood (0-5) Damien/ul Urine Nitrite (NEGATIVE) Urine Bilirubin (NEGATIVE) Urine Urobilinogen (0-1) mg/dL Ur Leukocyte Esterase (NEGATIVE) Urine WBC (Auto) (0-5) /HPF Urine RBC (Auto) (0-2) /HPF U Epithel Cells (Auto) (FEW) /HPF Urine Bacteria (Auto) (NEGATIVE) /HPF Urine Mucus (Auto) (NEGATIVE) /HPF Urine Culture Reflexed (NO) Urine Glucose (NEGATIVE) mg/dL Urine HCG, Qual (Negative) Influenza Type A Ag (NEGATIVE) Influenza Type B Ag (NEGATIVE) SARS-CoV-2 (PCR) (NEGATIVE) 03/08/20 03/08/20 03/08/20 Range/Units 11:50 11:12 11:01 WBC 7.7 (4.0-10.5) K/mm3 RBC 4.73 (4.1-5.4) M/mm3 Hgb 14.2 (12.0-16.0) gm/dl Hct 44.8 (35-47) % MCV 94.7 (78-100) fl MCH 30.0 (26-32) pg MCHC 31.7 L (32-36) g/dl RDW 14.0 (11.5-14.0) % Plt Count 195 (150-450) K/mm3 MPV 11.7 H (7.5-11.0) fl Gran % 75.5 H (36.0-66.0) % Eos # (Auto) 0.01 (0-0.5) Absolute Lymphs (auto) 1.37 (1.0-4.6) Absolute Monos (auto) 0.50 (0.0-1.3) Lymphocytes % 17.8 L (24.0-44.0) % Monocytes % 6.5 (0.0-12.0) % Eosinophils % 0.1 (0.00-5.0) % Basophils % 0.1 (0.0-0.4) % Absolute Granulocytes 5.82 (1.4-6.9) Basophils # 0.01 (0-0.4) D-Dimer (215-500) ng/mL Puncture Site RIGHT BRACHIAL pCO2 38 (35-45) mmHg pO2 66 L (75-100) mmHg Base Excess -0.3 (-2.0-2.0) O2 Saturation 92.3 L (94-100) g/dF ABG pH 7.41 (7.35-7.45) ABG HCO3 24.1 (22-28) ABG O2 Sat (Measured) 94.2 L (95-100) % Quentin Test NOT APPLICABLE A-a Gradient 86 a/A Ratio 0.43 Hemoglobin 14.5 Carboxyhemoglobin 1.1 (0.0-6.9) % THgb Methemoglobin 0.9 L (1.4-1.5) % Potassium 3.6 (3.5-5.1) Temperature 37.0 C POC O2 Flow Rate 28 % Sodium (137-145) mmol/L Chloride (98-107) mmol/L Carbon Dioxide (22-30) mmol/L Anion Gap (5-15) MEQ/L BUN (7-17) mg/dL Creatinine (0.52-1.04) mg/dL Estimated GFR ML/MIN Glucose (74-106) mg/dL Lactic Acid 1.0 (0.4-2.0) Calcium (8.4-10.2) mg/dL Magnesium (1.6-2.3) mg/dL Total Bilirubin (0.2-1.3) mg/dL AST (14-36) U/L ALT (0-35) U/L Alkaline Phosphatase (38-126) U/L Troponin I (0.000-0.034) ng/mL NT-Pro-B Natriuret Pep (0-450) pg/mL Serum Total Protein (6.3-8.2) g/dL Albumin (3.5-5.0) g/dL Urine Color (YELLOW) Urine Appearance (CLEAR) Urine pH (5-6) Ur Specific [place] (1.005-1.025) Urine Protein (Negative) Urine Ketones (NEGATIVE) Urine Blood (0-5) Damien/ul Urine Nitrite (NEGATIVE) Urine Bilirubin (NEGATIVE) Urine Urobilinogen (0-1) mg/dL Ur Leukocyte Esterase (NEGATIVE) Urine WBC (Auto) (0-5) /HPF Urine RBC (Auto) (0-2) /HPF U Epithel Cells (Auto) (FEW) /HPF Urine Bacteria (Auto) (NEGATIVE) /HPF Urine Mucus (Auto) (NEGATIVE) /HPF Urine Culture Reflexed (NO) Urine Glucose (NEGATIVE) mg/dL Urine HCG, Qual NEGATIVE (Negative) Influenza Type A Ag NEGATIVE (NEGATIVE) Influenza Type B Ag NEGATIVE (NEGATIVE) SARS-CoV-2 (PCR) (NEGATIVE) - Progress Progress: improved, re-examined Air Movement: good Progress Note: 03/08/20 49 years old is evaluated for flulike symptoms. She is given inhaler and symptomatic treatment for pain and a dose of steroid. Work-up showed bilateral airspace disease and a positive COVID-19. He is given a dose of antibiotics Rocephin and Zithromax along with remdesivir. Patient oxygen saturation was dropping to 90% on room air and is placed on 2 L and currently around 93%. She has elevated D-dimer and ruled out PE with negative CTA chest. I believe patient would benefit with inpatient admission with supplemental oxygen, steroids and remdesivir along with antibiotics. I have discussed with Dr. Santoyo and patient is accepted for admission. Blood Culture(s) Obtained: Yes Antibiotics given: Yes Discussed with DrRichie: Other (Natanael) Will see patient in: hospital (full admit) Counseled pt/family regarding: lab results, diagnosis, rad results - Departure Departure Disposition: In-patient Admission Clinical Impression: COVID-19 Pneumonia Qualifiers: Pneumonia type: due to unspecified organism Laterality: bilateral Lung location: lower lobe of lung Qualified Code(s): J18.9 - Pneumonia, unspecified organism Condition: Stable Critical Care Time: Yes Critical Care Time(excluding separately billable procedures): Critical 30-74 mins
[2020-03-08] MEDS ORDERED: VENTOLIN COMMON CANISTER IH ONE (11:50)
[2020-03-08 11:53] LABS: Absolute Neutrophil Ct (ANC) 5.82 (1.4-6.9); BASOPHIL % 0.1 % (0.0-0.4); Basophil (Absolute #) 0.01 (0-0.4); Eosinophil % 0.1 % (0.00-5.0); Eosinophil (Absolute #) 0.01 (0-0.5); Hematocrit 44.8 % (35-47); Hemoglobin 14.2 gm/dl (12.0-16.0); Lymphocyte (Absolute #) 1.37 (1.0-4.6); Lymphocytes % 17.8 % (24.0-44.0); Mean Cell Volume 94.7 fl (78-100); Mean Corpuscular Hgb Concent. 31.7 g/dl (32-36); Mean Platelet Volume 11.7 fl (7.5-11.0); Monocytes % 6.5 % (0.0-12.0); Neutrophil % 75.5 % (36.0-66.0); Platelet Count 195 K/mm3 (150-450); Red Blood Count 4.73 M/mm3 (4.1-5.4); White Blood Count 7.7 K/mm3 (4.0-10.5)
--- NOTE | 2020-03-08 11:58 | XRAY ---
Indication: Cough and short of breath. Comparison: November 15, 2018. Portable chest demonstrates new diffuse bilateral airspace disease left greater than right without consolidation/large effusion. Remaining heart and bony thorax unremarkable.
[2020-03-08 12:13] LABS: ALBUMIN 4.2 g/dL (3.5-5.0); ALKALINE PHOSPHATASE 143 U/L (38-126); ANION GAP 11.7 MEQ/L (5-15); BLOOD UREA NITROGEN 18 mg/dL (7-17); CHLORIDE 105 mmol/L (98-107); Calcium 8.8 mg/dL (8.4-10.2); Carbon Dioxide 27 mmol/L (22-30); Creatinine 1 0.88 mg/dL (0.52-1.04); EST GLOMERULAR FILTRATION RATE > 60.0 ML/MIN; Glucose 83 mg/dL (74-106); MAGNESIUM 2.4 mg/dL (1.6-2.3); NT PRO BNP 61.4 pg/mL (0-450); Potassium 3.5 mmol/L (3.5-5.1); SGOT/AST 63 U/L (14-36); SGPT/ALT 28 U/L (0-35); SODIUM 140 mmol/L (137-145); Total Protein 7.4 g/dL (6.3-8.2)
[2020-03-08] MEDS ORDERED: ROCEPHIN 1 Gm-D5w 50 ml Bag** 1 G/50 ML IVPB IV STA (12:16)
[2020-03-08] MEDS ORDERED: Zithromax 500 MG/ 250 ML NaCl Premix 500 MG/250 ML IVPB IV STA (12:16)
[2020-03-08 12:19] LABS: INFLUENZA A NEGATIVE (NEGATIVE); INFLUENZA B NEGATIVE (NEGATIVE)
[2020-03-08] MEDS ORDERED: ROCEPHIN 1 Gm-D5w 50 ml Bag** 1 G/50 ML IVPB IV ONE (12:45)
[2020-03-08] MEDS ORDERED: Zithromax 500 MG/ 250 ML NaCl Premix 500 MG/250 ML IVPB IV ONE (12:46)
--- NOTE | 2020-03-08 13:05 | XRAY ---
Indication: Cough and short of breath. Elevated d-dimer. Multiple contiguous axial images obtained through the chest using 80 cc Isovue 370 contrast. Comparison: November 15, 2018. There is adequate opacification of the pulmonary arteries to include lobar and segmental branches. However respiration artifact limits evaluation of the more distal pulmonary arteries. No obvious central pulmonary embolus. Heart is not enlarged. Aorta is normal in course and caliber. Stable tiny subcarinal calcified nodes. No pathologic mediastinal/hilar lymphadenopathy. Lungs demonstrate new diffuse patchy bilateral airspace disease left greater than right without effusion. Bony thorax intact. Limited upper abdomen again demonstrates cholecystectomy and gastric bypass surgery. Impression: 1. Pulmonary embolus evaluation limited due to respiration artifact. No obvious central pulmonary embolus. 2. New diffuse bilateral airspace disease.
[2020-03-08] MEDS ORDERED: REMDESIVIR 200 MG in Sodium Chloride 0.9% 250 ML 250 ML IV ONE (13:29)
[2020-03-08 14:37] LABS: HCG,QUALITATIVE URINE NEGATIVE (Negative)
[2020-03-08 14:39] LABS: Appearance CLEAR (CLEAR); Bilirubin NEGATIVE (NEGATIVE); Blood NEGATIVE Ery/ul (0-5); Epithelial Cells RARE /HPF (FEW); Glucose >=500 mg/dL (NEGATIVE); Ketones NEGATIVE (NEGATIVE); Leukocyte Esterase NEGATIVE (NEGATIVE); Mucus MANY /HPF (NEGATIVE); Nitrite NEGATIVE (NEGATIVE); Protein,Urine Dip NEGATIVE (Negative); Urobilinogen NEGATIVE mg/dL (0-1)
[2020-03-08] MEDS ORDERED: VENTOLIN COMMON CANISTER IH SCH ×2 (15:00→19:00)
[2020-03-08] MEDS ORDERED: MORPHINE SULFATE 2 MG INJ IV PRN (16:29)
[2020-03-08] MEDS ORDERED: HUMALOG SQ PRN (16:29)
[2020-03-08] MEDS ORDERED: Zofran 4 MG/2 ML VIAL IV PRN (16:29)
[2020-03-08] MEDS ORDERED: REMDESIVIR 100 MG in Sodium Chloride 0.9% 100 ML IVPB 100 ML IV SCH (16:29)
[2020-03-08] MEDS ORDERED: TYLENOL 325 MG PO PRN (16:29)
[2020-03-08] MEDS ORDERED: Tessalon Perles 100 MG PO PRN (18:33)
[2020-03-08] MEDS ORDERED: ZOFRAN ODT 4 MG PO PRN (18:38)
[2020-03-08] MEDS ORDERED: Cyclobenzaprine 10 MG PO SCH (18:45)
[2020-03-08] MEDS ORDERED: Spiriva 18 Mcg/Cap Inhaler IH SCH (19:00)
[2020-03-08] MEDS ORDERED: ENOXAPARIN SODIUM SQ SCH (20:00)
[2020-03-08] MEDS ORDERED: Pepcid 20 MG VIAL IV SCH (22:00)
[2020-03-08] MEDS ORDERED: Ventolin Hfa MDI IH SCH (22:00)
[2020-03-08] MEDS ORDERED: Decadron 4 MG INJ IV SCH (22:00)
[2020-03-08] MEDS ORDERED: BUSPAR 5 MG PO SCH (22:00)
[2020-03-08] MEDS ORDERED: XANAX 1 MG PO SCH (22:00)
[2020-03-08] MEDS ORDERED: LYRICA 100MG PO SCH (22:00)
[2020-03-08] MEDS ORDERED: celeBREX 100 MG PO SCH (22:00)
[2020-03-08] MEDS ORDERED: Colace 100 MG PO SCH (22:00)
[2020-03-09 04:56] LABS: A-aADO2 457; ABG HEMOGLOBIN 14.5; ABG POTASSIUM 3.7 (3.5-5.1); ABG SITE RIGHT BRACHIAL; ARTERIAL BLD GAS O2 SATURATION 94.1 % (95-100); ARTERIAL BLOOD GAS BASE EXCESS -2.5 (-2.0-2.0); ARTERIAL BLOOD GAS FIO2 80 %; ARTERIAL BLOOD GAS PCO2 39 mmHg (35-45); ARTERIAL BLOOD GAS PO2 65 mmHg (75-100); ARTERIAL BLOOD GAS pH 7.37 (7.35-7.45); CARBOXYHEMOGLOBIN 0.8 % THgb (0.0-6.9); HCO3- 22.5 (22-28); HGB O2 SAT 92.7 g/dF (94-100); Methhemoglobin 0.7 % (1.4-1.5); paO2 pAO1 0.12
[2020-03-09] MEDS ORDERED: Lasix 40 MG/4 ML IV ONE (05:51)
[2020-03-09 06:08] LABS: Absolute Neutrophil Ct (ANC) 5.09 (1.4-6.9); BASOPHIL % 0.3 % (0.0-0.4); Basophil (Absolute #) 0.02 (0-0.4); Eosinophil (Absolute #) 0 (0-0.5); Hematocrit 43.9 % (35-47); Hemoglobin 13.7 gm/dl (12.0-16.0); Lymphocyte (Absolute #) 0.59 (1.0-4.6); Lymphocytes % 9.5 % (24.0-44.0); Mean Corpuscular Hemoglobin 29.7 pg (26-32); Mean Corpuscular Hgb Concent. 31.2 g/dl (32-36); Mean Platelet Volume 10.7 fl (7.5-11.0); Monocyte (Absolute #) 0.49 (0.0-1.3); Monocytes % 7.9 % (0.0-12.0); Neutrophil % 82.3 % (36.0-66.0); Platelet Count 223 K/mm3 (150-450); Red Blood Count 4.62 M/mm3 (4.1-5.4); Red Cell Distribution Width 13.9 % (11.5-14.0); White Blood Count 6.2 K/mm3 (4.0-10.5)
[2020-03-09 06:26] LABS: ALBUMIN 3.9 g/dL (3.5-5.0); ALKALINE PHOSPHATASE 119 U/L (38-126); ANION GAP 11.8 MEQ/L (5-15); BLOOD UREA NITROGEN 17 mg/dL (7-17); CHLORIDE 105 mmol/L (98-107); Calcium 8.8 mg/dL (8.4-10.2); Carbon Dioxide 26 mmol/L (22-30); EST GLOMERULAR FILTRATION RATE > 60.0 ML/MIN; Glucose 101 mg/dL (74-106); SGOT/AST 48 U/L (14-36); SGPT/ALT 25 U/L (0-35); SODIUM 139 mmol/L (137-145); Total Protein 7.1 g/dL (6.3-8.2)
[2020-03-09 07:51] VITALS: BP 113/72; PULSE 91; O2SAT 92
[2020-03-09] MEDS ORDERED: Cyclobenzaprine 10 MG PO PRN (08:45)
[2020-03-09 08:58] LABS: Slide Review 1 YES
[2020-03-09] MEDS ORDERED: Glucophage 500 MG PO SCH (09:00)
[2020-03-09] MEDS ORDERED: Advair Hfa 115/21 Common canister IH SCH (09:15)
[2020-03-09] MEDS ORDERED: MEDICATION INTERVENTION MC SCH ×2 (09:15)
[2020-03-09] MEDS ORDERED: Zestril 5 MG PO SCH (10:00)
[2020-03-09] MEDS ORDERED: Januvia 50 MG PO SCH (10:00)
[2020-03-09] MEDS ORDERED: NON-FORMULARY ITEM (Liraglutide [Victoza 2-Pak] 1.2 MG) PO SCH (10:00)
[2020-03-09] MEDS ORDERED: NON-FORMULARY ITEM (Linagliptin [Tradjenta] 5 MG) PO SCH (10:00)
[2020-03-09] MEDS ORDERED: MILNACIPRAN HCL 100 MG PO SCH (10:00)
[2020-03-09] MEDS ORDERED: Decadron 4 MG INJ IV SCH (10:00)
[2020-03-09] MEDS ORDERED: Protonix 40MG Tablet PO SCH (10:00)
[2020-03-09] MEDS ORDERED: Zestril 10 MG PO SCH (10:00)
[2020-03-09] MEDS ORDERED: LYRICA 100MG PO SCH (10:00)
[2020-03-09] MEDS ORDERED: REMDESIVIR 100 MG in Sodium Chloride 0.9% 100 ML IVPB 100 ML IV SCH (10:00)
[2020-03-09] MEDS ORDERED: Zithromax 500 MG/ 250 ML NaCl Premix 500 MG/250 ML IVPB IV SCH (10:00)
[2020-03-09] MEDS ORDERED: ICOSAPENT ETHYL 2 GM PO SCH (10:00)
[2020-03-09] MEDS ORDERED: DAPAGLIFLOZIN PO SCH (10:00)
[2020-03-09] MEDS ORDERED: METFORMIN HCL PO SCH (10:00)
[2020-03-09] MEDS ORDERED: NON-FORMULARY ITEM (Omeprazole [Omeprazole] 20 MG) PO SCH (10:00)
[2020-03-09] MEDS ORDERED: NON-FORMULARY ITEM (Fluticasone/Vilanterol [Breo Ellipta 200-25 Mcg Inh] 1 EACH) IH SCH (10:00)
[2020-03-09] MEDS ORDERED: ENOXAPARIN SODIUM SQ SCH (10:00)
[2020-03-09] MEDS ORDERED: ROCEPHIN 1 Gm-D5w 50 ml Bag** 1 G/50 ML IVPB IV SCH (10:00)
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
== END 2020-03-09 07:55 | disposition home or self-care (01) | DRG 177 ==
LOC: ED 10:25 → MED SURG 16:25
PROVIDERS: ADMIT Family Medicine; ATTEND Family Medicine
DX: U07.1 COVID-19 (principal); J12.89 Other viral pneumonia; R05 Cough; R53.83 Other fatigue; J44.9 Chronic obstructive pulmonary disease, unspecified; I10 Essential (primary) hypertension; E78.5 Hyperlipidemia, unspecified; Z79.899 Other long term (current) drug therapy; R51.9 Headache, unspecified; E11.9 Type 2 diabetes mellitus without complications; G47.30 Sleep apnea, unspecified; Z98.84 Bariatric surgery status; F41.9 Anxiety disorder, unspecified; M79.7 Fibromyalgia
CPT/HCPCS: 36000; 36415; 36600; 71045; 71260; 80053; 81001; 82375; 82803; 82947; 83605; 83735; 83880; 84484; 84703; 85025; 85379; 87040; 87400; 93005; 93041; 94640; 94660; 94760; 94762; 96365; 96367; 96374; 99285; 99291; U0003; J0456; J0696; J1100; J1650; J1940; J2930; A9270-GY

== ENCOUNTER 2021-07-05 14:20 | Emergency (ER) | payer MEDICARE ==
--- NOTE | 2021-07-05 16:15 | ERPHSYRPT ---
- History of Present Illness Source: patient Exam Limitations: no limitations Patient Subjective Stated Complaint: pt was sent here for a ct scan, she is waiting for insurance and was told to come here due to dd elavated. Triage Nursing Assessment: pt alert, resp easy, skin w/p/d, face mask in place, has dry hacky cough. Physician History: 50 yo wf sent from clinic due to elevated DD. Pt has has a nonproductive cough x 3 days with mild dyspnea. She has pleuritic chest pain w coughing only. Fever/N/V/D/Melena/Hematochezia are all denied. CV19/Flu neg per labs today. Timing/Duration: other (3 days) Cough Quality/Degree: dry cough Possible Cause: occasional episodes Modifying Factors: Improves With: coughing Associated Symptoms: cough, No fever, No chills, No chest pain/soreness, No dizziness, No earache, No facial pain, No headache, No lightheadedness, No muscle aches, No nasal congestion, No nasal drainage, No shortness of breath, No sinus infection, No sore throat, No wheezing Allergies/Adverse Reactions: No Known Drug Allergies Allergy (Verified 07/05/21 14:35) Home Medications: Amitriptyline HCl 150 mg PO HS 03/20/16 [History] Cyclobenzaprine HCl 10 mg [Cyclobenzaprine 10 MG] 10 mg PO TID 04/26/17 [History] Docusate Sodium 100 mg [Docusate Sodium 100 MG] 100 mg BID 04/26/17 [History] Pregabalin [Lyrica] 200 mg PO TID 04/26/17 [History] lisinopriL [Lisinopril] 2.5 mg PO DAILY 04/26/17 [History] Milnacipran HCl [Savella] 100 mg PO BID 11/05/18 [History] Omeprazole 20 mg PO DAILY 11/05/18 [History] ondansetron HCL [Zofran] 4 mg PO Q6HPRN PRN 11/05/18 [History] ALPRAZolam 1 MG [Xanax 1 mg] 1 mg PO BID 03/08/20 [History] Albuterol Sulfate [Albuterol Sulfate Hfa] 2 puffs PO TID 03/08/20 [History] Benzonatate [Tessalon Perle] 100 mg PO UD PRN 03/08/20 [History] Buspirone HCl [Buspar] 15 mg PO TID 03/08/20 [History] Celecoxib [Celebrex] 200 mg PO BID 03/08/20 [History] Dapagliflozin/Metformin HCl [Xigduo Xr 10 mg-1,000 mg Tab] 1 tab PO DAILY 03/08/20 [History] Fluticasone/Vilanterol [Breo Ellipta 200-25 Mcg INH] 1 each IH DAILY 03/08/20 [History] Icosapent Ethyl [Vascepa] 2 gm PO BID 03/08/20 [History] Linagliptin [Tradjenta] 5 mg PO DAILY 03/08/20 [History] Liraglutide [Victoza 2-Philippe] 1.2 mg PO DAILY 03/08/20 [History] Tiotropium [place] Inhaler [Spiriva 18 Mcg/Cap Inhaler] 2 ea IH DAILY 03/08/20 [History] Hx Tetanus, Diphtheria Vaccination/Date Given: Yes Hx Influenza Vaccination/Date Given: Yes Hx Pneumococcal Vaccination/Date Given: No Immunizations Up to Date: Yes Travel Risk - International Travel Have you traveled outside of the country in past 3 weeks: No - Coronavirus Screening Are you exhibiting any of the following symptoms?: No Close contact with a COVID-19 positive Pt in past 14-21 Days: No - Vaccine Status Have you recieved a Covid-19 vaccination: Yes [employer]: Moderna - Vaccination Dates Date of 2cond Vaccination (if applicable): 2020 - Review of Systems Constitutional: No Symptoms Eyes: No Symptoms Ears, Nose, & Throat: No Symptoms Respiratory: No Symptoms, Cough Cardiac: No Symptoms Abdominal/Gastrointestinal: No Symptoms Genitourinary Symptoms: No Symptoms Musculoskeletal: No Symptoms Skin: No Symptoms Neurological: No Symptoms Psychological: No Symptoms Endocrine: No Symptoms Hematologic/Lymphatic: No Symptoms Immunological/Allergic: No Symptoms - Past Medical History Pertinent Past Medical History: Yes Neurological History: Migraines ENT History: No Pertinent History Cardiac History: No Pertinent History Respiratory History: Asthma, Bronchitis, COPD, Sleep Apnea Endocrine Medical History: Diabetes Type II Musculoskeletal History: Fibromyalgia, Osteoarthritis, Rheumatoid Arthritis GI Medical History: Crohns Disease, Irritable Bowel History: No Pertinent History Psycho-Social History: Anxiety, Bipolar, Depression Female Reproductive Disorders: No Pertinent History Other Medical History: DJD - BULGING DISCS. SPONDILOSIS, sciatica - Past Surgical History Past Surgical History: Yes (gastric bypas 2018, gallbladde) Neuro Surgical History: No Pertinent History Cardiac: Cardiac Catheterization Respiratory: No Pertinent History Gastrointestinal: Cholecystectomy Genitourinary: No Pertinent History Musculoskeletal: No Pertinent History Female Surgical History: Hysterectomy, Section Other Surgical History: BACK SURGERY. TOE SURGERY--RECONSTRUCTION - Social History Smoking Status: Never smoker Exposure to second hand smoke: No Drug Use: none Patient Lives Alone: Yes Significant Family History: no pertinent family hx - Nursing Vital Signs Nursing Vital Signs: Initial Vital Signs Temperature 97.2 F 07/05/21 14:29 Pulse Rate 89 07/05/21 14:29 Respiratory Rate 18 07/05/21 14:29 Blood Pressure 130/111 07/05/21 14:29 O2 Sat by Pulse Oximetry 97 07/05/21 14:29 Pain Scale Pain Intensity 8 Hypertensive - Physical Exam General Appearance: no apparent distress Eye Exam: PERRL/EOMI, eyes nml inspection Ears, Nose, Throat Exam: normal ENT inspection, TMs normal, pharynx normal, moist mucous membranes Neck Exam: normal inspection, non-tender, supple, full range of motion, No meningismus, No mass, No Brudzinski, No Kernig's Respiratory Exam: normal breath sounds, lungs clear, airway intact Cardiovascular Exam: regular rate/rhythm, capillary refill <2 sec, No murmur Gastrointestinal/Abdomen Exam: soft, normal bowel sounds, No tenderness Back Exam: normal inspection, normal range of motion, No CVA tenderness, No vertebral tenderness Neurologic Exam: alert, oriented x 3, cooperative, 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 as tested, normal mood/affect, nml cerebellar function, nml station & gait, sensation nml Skin Exam: normal color, warm, dry Lymphatic Exam: No adenopathy SpO2 Interpretation: normal SpO2: 97 O2 Delivery: Room Air - Course Nursing assessment & vital signs reviewed: Yes - CT Exams Chest CT Interpretation: Discussed w/radiologist (CT chest-no PE/Diffuse B patchy airspace ds/Fecal stasis) Ordered Tests: Active Orders 24 hr Category Date Time Status IV Insertion STAT Care 07/05/21 15:35 Completed CHEST WITH CONTRAST [CT] Stat Exams 07/05/21 14:55 Completed TROPONIN Q3H Lab 07/05/21 10:00 Completed Lab/Rad Data: Laboratory Results 07/05/21 Range/Units 10:00 Troponin I < 0.012 (0.000-0.034) ng/mL - Progress Progress Note: 07/05/21 16:45 Follow up with your family MD on Thursday or Thursday Start Levaquin once a day for 5 days Return to ER for increasing shortness of breath or temperature greater than 100.5 Counseled pt/family regarding: lab results, diagnosis, need for follow-up, rad results - Departure Departure Disposition: Home Clinical Impression: Pneumonia Condition: Stable Critical Care Time: No Referrals: SHAYAN CUELLO NP [Primary Care Provider] - Follow up/PCP as directed Instructions: Pneumonia, Adult (DC) Additional Instructions: Levaquin once a day for 5 days Fluids Follow up with your family MD on Thursday or Thursday Prescriptions: Levofloxacin [Levofloxacin 500 MG Tablet] 500 mg PO DAILY 5 Days #5 tablet Levofloxacin [Levofloxacin 500MG/100ML D5W] 500 mg PO DAILY 5 Days #5
--- NOTE | 2021-07-05 16:27 | XRAY ---
Indication: Cough and chest pain. Elevated d-dimer. COPD. Multiple contiguous images obtained through the chest using 100 cc Isovue-370 contrast and PE protocol. Comparison: June 20, 2020 There is good opacification of the pulmonary arteries to include the lobar and segmental branches. No pulmonary embolus. Heart not enlarged. Aorta is normal in course and caliber. Again tiny subcarinal calcified nodes. No pathologic mediastinal/hilar lymphadenopathy. Lungs again demonstrates diffuse bilateral patchy airspace disease more than before, greatest extent right lower lobe. No large effusion. Bony thorax intact. Limited upper abdomen again demonstrates cholecystectomy clips and mild diffuse colonic fecal stasis. Impression: 1. Negative pulmonary embolus. Negative same day DVT study. 2. Again diffuse bilateral patchy airspace disease right greater than left. 3. Again incidental mild colonic fecal stasis and old granulomatous disease.
[2021-07-05 16:41] VITALS: BP 118/71; PULSE 80
[2021-07-05 16:42] VITALS: O2SAT 97
== END 2021-07-05 16:51 | disposition home or self-care (01) ==
LOC: ED 14:20
DX: J18.9 Pneumonia, unspecified organism (principal); R79.1 Abnormal coagulation profile; R05.1 Acute cough; R06.00 Dyspnea, unspecified; J44.9 Chronic obstructive pulmonary disease, unspecified; E11.9 Type 2 diabetes mellitus without complications; Z79.84 Long term (current) use of oral hypoglycemic drugs; Z79.899 Other long term (current) drug therapy
CPT/HCPCS: 36000; 36415; 71260; 84484; 99284

== ENCOUNTER 2024-01-01 10:04 | Emergency (ER) | payer MEDICARE ==
--- NOTE | 2024-01-01 10:18 | ERPHSYRPT ---
- History of Present Illness Time Seen by Provider: 01/01/24 10:13 Source: patient, EMS Exam Limitations: no limitations Physician History: This is a right-handed white female who presents to the emergency department by the paramedics secondary to suffering a large skin laceration to the area of her left elbow and proximal left forearm. Patient was carrying a vase at home when she fell broke the vase and cut the area. Her tetanus status is up-to-date having had a tetanus injection 2 years ago per her report. Patient did not eat this morning but did take her morning medications with sip of fluid approximately an hour and a half prior to arrival. She did not hit her head. She did not lose consciousness. Patient is not on any anticoagulation therapy. She does have a history of GERD, hypertension and fibromyalgia as well as neuropathy. Occurred: just prior to arrival Quality: aching, throbbing Severity of Pain-Max: moderate Severity of Pain-Current: moderate Extremities Pain Location: elbow: left, forearm: left (Proximal) Modifying Factors: Improves With: movement Associated Symptoms: none Allergies/Adverse Reactions: latex Allergy (Severe, Verified 01/01/24 10:21) Blisters Sulfa (Sulfonamide Antibiotics) Allergy (Intermediate, Verified 01/01/24 10:21) Hives mice Adverse Reaction (Unknown, Uncoded 01/01/24 10:21) Home Medications: Amitriptyline HCl 150 mg PO HS 03/20/16 [History] Cyclobenzaprine HCl 10 mg [Cyclobenzaprine 10 MG] 10 mg PO TID 04/26/17 [History] Docusate Sodium 100 mg [Docusate Sodium 100 MG] 100 mg BID 04/26/17 [History] Pregabalin [Lyrica] 200 mg PO TID 04/26/17 [History] Milnacipran HCl [Savella] 100 mg PO BID 11/05/18 [History] Omeprazole 20 mg PO DAILY 11/05/18 [History] ondansetron HCL [Zofran] 4 mg PO Q6HPRN PRN 11/05/18 [History] Albuterol Sulfate [Albuterol Sulfate Hfa] 2 puffs PO TID 03/08/20 [History] Benzonatate [Tessalon Perle] 100 mg PO UD PRN 03/08/20 [History] Buspirone HCl [Buspar] 15 mg PO TID 03/08/20 [History] Hx Tetanus, Diphtheria Vaccination/Date Given: Yes Hx Influenza Vaccination/Date Given: Yes Hx Pneumococcal Vaccination/Date Given: No Travel Risk - International Travel Have you traveled outside of the country in past 3 weeks: No - Emerging Infectious Disease Are you exhibiting symptoms associated with any current EIDs: No - Review of Systems Constitutional: No Symptoms Eyes: No Symptoms Ears, Nose, & Throat: No Symptoms Respiratory: No Symptoms Cardiac: No Symptoms Abdominal/Gastrointestinal: No Symptoms Genitourinary Symptoms: No Symptoms Musculoskeletal: Injury (Left elbow and proximal left forearm large skin laceration) Skin: Other (See above muscle skeletal section) Neurological: No Symptoms Psychological: No Symptoms Endocrine: No Symptoms Hematologic/Lymphatic: No Symptoms Immunological/Allergic: No Symptoms All Other Systems: Reviewed and Negative - Past Medical History Pertinent Past Medical History: Yes Neurological History: Migraines, Peripheral Neuropathy ENT History: No Pertinent History Cardiac History: No Pertinent History Respiratory History: Asthma, Bronchitis, COPD, Sleep Apnea Endocrine Medical History: Diabetes Type II Musculoskeletal History: Fibromyalgia, Osteoarthritis, Rheumatoid Arthritis GI Medical History: Crohns Disease, Irritable Bowel History: No Pertinent History Psycho-Social History: Anxiety, Bipolar, Depression Female Reproductive Disorders: No Pertinent History Other Medical History: Pt states that she is to be on 3L O2, but notes that she is unable to use it now due to changing provider - Past Surgical History Past Surgical History: Yes (gastric bypas 2018, gallbladde) Neuro Surgical History: No Pertinent History Cardiac: Cardiac Catheterization Respiratory: No Pertinent History Gastrointestinal: Cholecystectomy Genitourinary: No Pertinent History Musculoskeletal: No Pertinent History Female Surgical History: Hysterectomy, Section Other Surgical History: BACK SURGERY. TOE SURGERY--RECONSTRUCTION Significant Family History: no pertinent family hx - Female History Hx Last Menstrual Period: DEPO-SHOT - Social History Smoking Status: Never smoker Exposure to second hand smoke: No Drug Use: none Patient Lives Alone: Yes - Nursing Vital Signs Nursing Vital Signs: Initial Vital Signs Temperature 97.1 F 01/01/24 10:10 Pulse Rate 89 01/01/24 10:10 Respiratory Rate 20 01/01/24 10:10 Blood Pressure 97/79 01/01/24 10:10 O2 Sat by Pulse Oximetry 98 01/01/24 10:10 Pain Scale Pain Intensity 0 - Physical Exam General Appearance: mild distress, alert, anxiety, obese Eyes, Ears, Nose, Throat Exam: normal ENT inspection, moist mucous membranes Neck Exam: normal inspection, non-tender, supple, full range of motion Cardiovascular/Respiratory Exam: chest non-tender, no respiratory distress Abdominal Exam: non-tender Back Exam: normal inspection, normal range of motion, No CVA tenderness, No vertebral tenderness Shoulder Exam: normal inspection, non-tender, no evidence of injury, normal ROM Elbow/Forearm Exam: normal ROM, soft tissue tenderness (14 cm in length and approximately 5 cm in width skin laceration through the fascia of the underlying muscle at the level of the left elbow and proximal left forearm.) Wrist Exam: normal inspection, non-tender, no evidence of injury, normal ROM Hand Exam: normal inspection, non-tender, no evidence of injury, normal ROM Neuro/Tendon Exam: normal sensation, normal motor functions, normal tendon functions, no evidence tendon injury Mental Status Exam: alert, oriented x 3 Skin Exam: other (The above extremity section) SpO2 Interpretation: normal O2 Delivery: Room Air - Course Nursing assessment & vital signs reviewed: Yes Ordered Tests: Active Orders 24 hr Category Date Time Status IV Insertion STAT Care 01/01/24 10:21 Active ELBOW (MINIMUM 3 VIEWS) Stat Exams 01/01/24 10:23 Taken FOREARM Stat Exams 01/01/24 10:22 Taken CBC W DIFF Stat Lab 01/01/24 10:36 Completed CMP Stat Lab 01/01/24 10:36 Completed PROTIME WITH INR Stat Lab 01/01/24 10:36 Completed Medication Summary Generic Name Dose Route Start Last Admin Trade Name Freq PRN Reason Stop Dose Admin Sodium Chloride 1,000 mls @ 50 mls/hr 01/01/24 10:30 01/01/24 10:36 Sodium Chloride 0.9% 1000 Ml IV 01/31/24 10:29 Not Given .Q20H REYES Sodium Chloride 500 mls @ 50 mls/hr 01/01/24 10:45 01/01/24 10:38 Sodium Chloride 0.9% 500 Ml IV 01/31/24 10:44 50 mls/hr .Q10H REYES Administration Discontinued Medications Generic Name Dose Route Start Last Admin Trade Name Freq PRN Reason Stop Dose Admin Hydromorphone HCl 1 mg 01/01/24 10:21 01/01/24 10:30 Hydromorphone 1 Mg/1ml Inj IV 01/01/24 10:22 1 mg STAT ONE Administration Hydromorphone HCl Confirm 01/01/24 10:29 Hydromorphone 1 Mg/1ml Inj Administered 01/01/24 10:30 Dose 1 mg .ROUTE .STK-MED ONE Cefazolin Sodium 1 gm in 100 mls @ 200 mls/hr 01/01/24 10:22 01/01/24 10:31 Cefazolin 1 Gm/100 Ml Nacl Ivpb IV 01/01/24 10:51 100 mls/hr STAT STA 100 mls/hr Administration Cefazolin Sodium Confirm 01/01/24 10:29 Cefazolin 1 Gm/100 Ml Nacl Ivpb Administered 01/01/24 10:30 Dose 1 gm in 100 mls @ ud IV .STK-MED ONE Ondansetron HCl 4 mg 01/01/24 10:21 01/01/24 10:30 Ondansetron Hcl 4 Mg/2 Ml Vial IV 01/01/24 10:22 4 mg STAT ONE Administration Ondansetron HCl Confirm 01/01/24 10:28 Ondansetron Hcl 4 Mg/2 Ml Vial Administered 01/01/24 10:29 Dose 4 mg .ROUTE .STK-MED ONE Lab/Rad Data: Laboratory Result Diagrams 01/01/24 10:36 01/01/24 10:36 Laboratory Results 01/01/24 01/01/24 01/01/24 Range/Units 10:36 10:36 10:36 WBC 7.8 (3.98-10.04) x10^3/uL RBC 4.73 (3.93-5.22) x10^6/uL Hgb 14.6 (11.2-15.7) g/dL Hct 45.7 H (34.1-44.9) % MCV 96.6 H (79.4-94.8) fL MCH 30.9 (25.6-32.2) pg MCHC 31.9 L (32.2-35.5) g/dL RDW 13.4 (11.7-14.4) % Plt Count 250 (182-369) x10^3/uL MPV 11.2 (9.4-12.3) fL Gran % 63.8 (34.0-71.1) % Immature Gran % (Auto) 0.3 (0.001-0.429) % Nucleat RBC Rel Count 0.0 (0.00-0.2) % Eos # (Auto) 0.23 (0.04-0.36) x10^3/uL Immature Gran # (Auto) 0.02 (0.001-0.031) x10^3u/L Absolute Lymphs (auto) 1.95 (1.18-3.74) x10^3/uL Absolute Monos (auto) 0.58 (0.24-0.86) x10^3/uL Absolute Nucleated RBC 0.00 (0.00-0.012) x10^3u/L Lymphocytes % 25.0 (19.3-51.7) % Monocytes % 7.4 (4.7-12.5) % Eosinophils % 2.9 (0.7-5.8) % Basophils % 0.6 (0.1-1.2) % Absolute Granulocytes 4.97 (1.56-6.13) x10^3/uL Basophils # 0.05 (0.01-0.08) x10^3/uL PT 10.3 (9.4-12.5) SECONDS INR 0.94 (0.8-3.0) Sodium 140 (135-145) mmol/L Potassium 4.2 (3.5-5.1) mmol/L Chloride 103 (98-107) mmol/L Carbon Dioxide 27 (22-30) mmol/L Anion Gap 14.0 (5-15) MEQ/L BUN 12 (7-17) mg/dL Creatinine 0.93 (0.52-1.04) mg/dL Estimated GFR 73.5 ML/MIN Glucose 118 H (74-106) mg/dL Calcium 9.0 (8.4-10.2) mg/dL Total Bilirubin 1.30 (0.2-1.3) mg/dL AST 27 (14-36) U/L ALT 17 (0-35) U/L Alkaline Phosphatase 98 (38-126) U/L Serum Total Protein 7.0 (6.3-8.2) g/dL Albumin 4.3 (3.5-5.0) g/dL - Progress Progress: improved, pain not gone completely Progress Note: 01/01/24 10:18 My medical decision making and the assignment of moderate complexity was based on review of the patient's past medical history, review of patient's medication list, reviewed patient drug allergy list, history present illness and physical findings on examination. The workup in this patient includes placement of intravenous line, infusion of low rate normal saline solution, infusion of Kefzol antibiotic, infusion of Dilaudid 1 mg and Zofran 4 mg, CBC, CMP, PT/INR x-ray left elbow and left forearm. 01/01/24 10:19 Upon examination of this patient, her range of motion appears to be limited only by the pain she experiences when she moves the left elbow joint. I will consult orthopedic services. On my examination, I see a wound/laceration significantly large enough and deep enough to warrant exploration. Aggressive irrigation is necessary in order to remove any glass possibly present in the wound and should be managed in the operating room setting with exploration, irrigation, repair and closure. 01/01/24 10:23 01/01/24 11:06 I interpreted the preliminary reports of the following x-rays: Left elbow x-ray no radiopaque foreign body. Skin disruption/laceration at the level of the elbow. No acute fracture or dislocation Left forearm x-ray shows no radiopaque foreign body. No acute bony fracture or dislocation. Dr. Rose, orthopedic services, is here in the emergency department evaluating this patient and will make further recommendations on the management. 01/01/24 11:17 Interpreted the patient's laboratory data results. Based on the laboratory data results, there are no acute, emergent medical issue. Dr. Rose evaluated this patient and he will be taking this patient to the operating room for exploration, irrigation and repair of this wound/laceration. Counseled pt/family regarding: lab results, diagnosis, rad results Medical Desision Making - Independent Historian Additional History obtained from: Family - Diagnostic Testing Diagnostic test were ordered, analyzed, and reviewed by me: Yes Radiological Interpretation: Interpreted by me, Teleradiologist Report - Risk of complications The pt has a high risk of morbidity or mortality based on: Decision regarding hospitilization or escalation of hosp level of care - Departure Departure Disposition: [place] [place]ression: Laceration of left upper extremity Condition: Stable Critical Care Time: No Referrals: SATHYA DAY MD [Primary Care Provider] - Follow up/PCP as directed
[2024-01-01 10:20] VITALS: TEMP 97.1
[2024-01-01] MEDS ORDERED: Zofran 4 MG/2 ML VIAL ONE (10:28)
[2024-01-01] MEDS ORDERED: Hydromorphone 1 mg/ml Injection ONE (10:29)
[2024-01-01] MEDS ORDERED: CEFAZOLIN 1 GM/100 ML NACL IVPB 1 GM/100 ML IVPB IV ONE (10:29)
[2024-01-01] MEDS: Hydromorphone 1 mg/ml Injection IV ONE (10:30)
[2024-01-01] MEDS: Zofran 4 MG/2 ML VIAL IV ONE (10:30)
[2024-01-01] MEDS: CEFAZOLIN 1 GM/100 ML NACL IVPB 1 GM/100 ML IVPB IV STA (10:31)
[2024-01-01] MEDS: Sodium Chloride 0.9% 1000 ML 1,000 ML IV SCH (10:36)
[2024-01-01] MEDS ORDERED: Sodium Chloride 0.9% 500 ML 500 ML IV ONE (10:37)
[2024-01-01] MEDS: Sodium Chloride 0.9% 500 ML 500 ML IV SCH (10:38)
[2024-01-01 10:39] LABS: Absolute Neutrophil Ct (ANC) 4.97 x10^3/uL (1.56-6.13); BASOPHIL % 0.6 % (0.1-1.2); Basophil (Absolute #) 0.05 x10^3/uL (0.01-0.08); Eosinophil % 2.9 % (0.7-5.8); Eosinophil (Absolute #) 0.23 x10^3/uL (0.04-0.36); Hematocrit 45.7 % (34.1-44.9); Hemoglobin 14.6 g/dL (11.2-15.7); IMMATURE GRAN # 0.02 x10^3u/L (0.001-0.031); IMMATURE GRAN % 0.3 % (0.001-0.429); Lymphocyte (Absolute #) 1.95 x10^3/uL (1.18-3.74); Mean Cell Volume 96.6 fL (79.4-94.8); Mean Corpuscular Hemoglobin 30.9 pg (25.6-32.2); Mean Corpuscular Hgb Concent. 31.9 g/dL (32.2-35.5); Mean Platelet Volume 11.2 fL (9.4-12.3); Monocyte (Absolute #) 0.58 x10^3/uL (0.24-0.86); Monocytes % 7.4 % (4.7-12.5); Neutrophil % 63.8 % (34.0-71.1); Platelet Count 250 x10^3/uL (182-369); Red Blood Count 4.73 x10^6/uL (3.93-5.22); Red Cell Distribution Width 13.4 % (11.7-14.4); White Blood Count 7.8 x10^3/uL (3.98-10.04)
[2024-01-01 10:47] VITALS: PULSE 88
[2024-01-01 10:53] LABS: INR 0.94 (0.8-3.0); PROTIME 10.3 SECONDS (9.4-12.5)
[2024-01-01 10:55] LABS: ALBUMIN 4.3 g/dL (3.5-5.0); BILIRUBIN,TOTAL 1.3 mg/dL (0.2-1.3); Creatinine 1 0.93 mg/dL (0.52-1.04); EST GLOMERULAR FILTRATION RATE 73.5 ML/MIN; Potassium 4.2 mmol/L (3.5-5.1)
[2024-01-01 11:08] VITALS: O2SAT 93
--- NOTE | 2024-01-01 11:19 | PCM.CONS ---
History of Present Illness - Consult Date of Consultation Date: 01/01/24 Reason for Consult: Left elbow laceration Consulting Provider: IRENE BARBER MD - [facility] History of Present Illness: is a 53 year old female.[id number] who lacerated her left elbow on glass at home today about 1030.Problems with his arm. Has severe pain rating up and down the arm now. Has some mild tingling in all fingers.Patient has had tetanusProphylaxis 2 yearsAgo. She has received Kefzol in the ER. No other injuries.Has history of diabetes. Has some COPD but is not on oxygen. Has some coronary artery disease withDecreased ejection fraction according the patient. Not on blood thinners. She is on disability for multiple health conditions.Has no chest pain. Has some chronic mild shortness of air. No fevers or chills. Medications & Allergies Home Medications: Home Medication List Amitriptyline HCl 150 mg PO HS 03/20/16 [History Confirmed 01/01/24] Cyclobenzaprine HCl 10 mg [Cyclobenzaprine 10 MG] 10 mg PO TID 04/26/17 [History Confirmed 01/01/24] Docusate Sodium 100 mg [Docusate Sodium 100 MG] 100 mg BID 04/26/17 [History Confirmed 01/01/24] Pregabalin [Lyrica] 200 mg PO TID 04/26/17 [History Confirmed 01/01/24] Milnacipran HCl [Savella] 100 mg PO BID 11/05/18 [History Confirmed 01/01/24] Omeprazole 20 mg PO DAILY 11/05/18 [History Confirmed 01/01/24] ondansetron HCL [Zofran] 4 mg PO Q6HPRN PRN 11/05/18 [History Confirmed 01/01/24] Albuterol Sulfate [Albuterol Sulfate Hfa] 2 puffs PO TID 03/08/20 [History Confirmed 01/01/24] Benzonatate [Tessalon Perle] 100 mg PO UD PRN 03/08/20 [History Confirmed 01/01/24] Buspirone HCl [Buspar] 15 mg PO TID 03/08/20 [History Confirmed 01/01/24] Allergies/Adverse Reactions: Allergies Allergy/AdvReac Type Severity Reaction Status Date / Time latex Allergy Severe Blisters Verified 01/01/24 10:21 Sulfa (Sulfonamide Allergy Intermediate Hives Verified 01/01/24 10:21 Antibiotics) mice AdvReac Unknown Uncoded 01/01/24 10:21 - Past Medical History Past Medical History: Yes Neurological History: Migraines, Peripheral Neuropathy ENT History: No Pertinent History Cardiac History: No Pertinent History Respiratory History: Asthma, Bronchitis, COPD, Sleep Apnea Endocrine Medical History: Diabetes Type II Musculoskelatal History: Fibromyalgia, Osteoarthritis, Rheumatoid Arthritis GI Medical History: Crohns Disease, Irritable Bowel History: No Pertinent History Pyscho-Social History: Anxiety, Bipolar, Depression Reproductive Disorders: No Pertinent History Comment: Pt states that she is to be on 3L O2, but notes that she is unable to use it now due to changing provider - Female History Hx Last Menstrual Period: DEPO-SHOT - Past Surgical History Past Surgical History: Yes (gastric bypas 2018, gallbladde) Neuro Surgical History: No Pertinent History Cardiac History: Cardiac Catheterization Respiratory Surgery: No Pertinent History GI Surgical History: Cholecystectomy Genitourinary Surgical Hx: No Pertinent History Musculskeletal Surgical Hx: No Pertinent History Female Surgical History: Hysterectomy, Section Other Surgical History: BACK SURGERY. TOE SURGERY--RECONSTRUCTION Significant Family History: no pertinent family hx - Social History Smoking Status: Never smoker Exposure to second hand smoke: No Alcohol: None Drug Use: none - Social Determinants of Health Will the patient participate in the screening: Declined to provide - Nursing Vital Signs Nursing Vital Signs: Vital Signs - 24 hr Temp Pulse Resp BP BP Pulse Ox 01/01/24 11:00 88 17 109/78 93 L 01/01/24 10:45 88 21 104/77 96 01/01/24 10:30 88 25 H 101/71 92 L 01/01/24 10:16 89 15 97/79 01/01/24 10:10 97.1 F 89 20 97/79 98 - Physical Exam SpO2: 93 - Narrative Narrative Physical Exam: Ortho Physical Exam Pleasant female, no apparent stress, alert and O x 3, moderately obese Left forearm has a bandage around it. There is a laceration extending from the proximal lateral elbow to the posterolateral elbow about 14 cm in length.3 cm. There is muscle fascia seen in theExtensor compartment with some laceration. Elbow feels stable to varus and valgus Patient has 5/5 radial median and ulnar nerve function distally Good sensation radial median ulnar nerve distribution with mild tingling. Patient has5 wrist extension and flexion secondary to pain 2+ radial pulse No significant bleeding in the wound X-ray of left forearm reviewed by me shows no fractures or dislocations there is soft tissue injury seen posteriorly Assessment/Plan (1) Laceration of left forearm Current Visit: Yes Status: Acute Assessment & Plan: Explained I feel wound should be explored to look for tendon laceration or muscle fascial laceration which may be repaired.She understands risk include bleeding, infection, damage to nerves or blood vessels, possible need for further surgery, and the risk of medical anesthetic complications including risk of .Patient wishes to proceed with surgery. Code(s): S51.812A - LACERATION WITHOUT FOREIGN BODY OF LEFT FOREARM, INIT ENCNTR Results - Labs Lab/Micro Results: Lab Results-Last 24 Hours 01/01/24 01/01/24 01/01/24 Range/Units 10:36 10:36 10:36 WBC 7.8 (3.98-10.04) x10^3/uL RBC 4.73 (3.93-5.22) x10^6/uL Hgb 14.6 (11.2-15.7) g/dL Hct 45.7 H (34.1-44.9) % MCV 96.6 H (79.4-94.8) fL MCH 30.9 (25.6-32.2) pg MCHC 31.9 L (32.2-35.5) g/dL RDW 13.4 (11.7-14.4) % Plt Count 250 (182-369) x10^3/uL MPV 11.2 (9.4-12.3) fL Gran % 63.8 (34.0-71.1) % Immature Gran % (Auto) 0.3 (0.001-0.429) % Nucleat RBC Rel Count 0.0 (0.00-0.2) % Eos # (Auto) 0.23 (0.04-0.36) x10^3/uL Immature Gran # (Auto) 0.02 (0.001-0.031) x10^3u/L Absolute Lymphs (auto) 1.95 (1.18-3.74) x10^3/uL Absolute Monos (auto) 0.58 (0.24-0.86) x10^3/uL Absolute Nucleated RBC 0.00 (0.00-0.012) x10^3u/L Lymphocytes % 25.0 (19.3-51.7) % Monocytes % 7.4 (4.7-12.5) % Eosinophils % 2.9 (0.7-5.8) % Basophils % 0.6 (0.1-1.2) % Absolute Granulocytes 4.97 (1.56-6.13) x10^3/uL Basophils # 0.05 (0.01-0.08) x10^3/uL PT 10.3 (9.4-12.5) SECONDS INR 0.94 (0.8-3.0) Sodium 140 (135-145) mmol/L Potassium 4.2 (3.5-5.1) mmol/L Chloride 103 (98-107) mmol/L Carbon Dioxide 27 (22-30) mmol/L Anion Gap 14.0 (5-15) MEQ/L BUN 12 (7-17) mg/dL Creatinine 0.93 (0.52-1.04) mg/dL Estimated GFR 73.5 ML/MIN Glucose 118 H (74-106) mg/dL Calcium 9.0 (8.4-10.2) mg/dL Total Bilirubin 1.30 (0.2-1.3) mg/dL AST 27 (14-36) U/L ALT 17 (0-35) U/L Alkaline Phosphatase 98 (38-126) U/L Serum Total Protein 7.0 (6.3-8.2) g/dL Albumin 4.3 (3.5-5.0) g/dL - Radiology Impressions Radiology Exams & Impressions: Radiology Procedures Category Date Time Status ELBOW (MINIMUM 3 VIEWS) Stat Exams 01/01/24 10:23 Taken FOREARM Stat Exams 01/01/24 10:22 Taken
--- NOTE | 2024-01-01 11:41 | XRAY ---
CLINICAL HISTORY: Trauma associated with glass COMPARISON: None. TECHNIQUE: X-rays of the left elbow joint (AP, lateral & oblique projections) were performed. FINDINGS: Large areas of soft tissue swelling with air lucencies inside it were noted along the posterior and lateral aspects of the elbow, which could be soft tissue surgical emphysema with possible contusion considered as trauma-related findings, clinical correlation is needed. No evidence of acute fracture was seen. Normal bones. Normal joints. No neoplastic mass. No lytic or sclerosis bone lesion. IMPRESSION: 1. No significant bone abnormality is noted. 2. Large areas of soft tissue swelling with air lucencies inside it were noted along the posterior and lateral aspects of the elbow, which could be soft tissue surgical emphysema with possible contusion considered as trauma-related findings, clinical correlation is needed. DISCLAIMER:A subtle bone abnormality or fracture may not be readily apparent on X-rays, thus clinical correlation and further imaging including follow-up CT, MRI, or follow-up X-rays are advised as needed. Electronically Signed by: Haroon Williamson MD. (01/01/2024 11:36:45 EDT)
--- NOTE | 2024-01-01 11:45 | XRAY ---
CLINICAL HISTORY: Trauma associated with glass COMPARISON: None. TECHNIQUE: X-rays of the left forearm were obtained in AP and lateral views. FINDINGS: Large areas of soft tissue swelling with air lucencies inside it were noted along the posterior and lateral aspects of the elbow, which could be soft tissue surgical emphysema with possible contusion considered as trauma-related findings, clinical correlation is needed. Normal bone mineralization. No acute fracture was identified. The cortical margins of the osseous structures are within normal limits. No lytic or sclerotic bone lesion. Normal wrist joint space. IMPRESSION: 1. No acute osseous abnormality was seen. 2. Large areas of soft tissue swelling with air lucencies inside it were noted along the posterior and lateral aspects of the elbow, which could be soft tissue surgical emphysema with possible contusion considered as trauma-related findings, clinical correlation is needed. DISCLAIMER:A subtle bone abnormality or fracture may not be readily apparent on x-rays, thus clinical correlation and further imaging including follow-up CT, MRI, or follow-up x-rays are advised as needed. Electronically Signed by: Haroon Williamson MD. (01/01/2024 11:40:21 EDT)
[2024-01-01 12:08] VITALS: BP 98/72; RESP 16
== END 2024-01-01 12:42 | disposition other institution (70) ==
LOC: ED 10:04
DX: S51.812A Laceration without foreign body of left forearm, initial encounter (principal); W01.118A Fall on same level from slipping, tripping and stumbling with subsequent striking against other sharp object, initial encounter; I10 Essential (primary) hypertension; E11.42 Type 2 diabetes mellitus with diabetic polyneuropathy; Z79.899 Other long term (current) drug therapy
CPT/HCPCS: 36000; 36415; 73080; 73090; 80053; 85025; 85610; 93005; 96365; 96374; 96375; 99284; J0690; J1170; J2405

== ENCOUNTER 2024-01-01 12:25 | Day surgery (SDC) | payer MEDICARE ==
[2024-01-01] MEDS ORDERED: Sensorcaine 0.25% 10 ML ONE (13:01)
[2024-01-01] MEDS ORDERED: MARCAINE 0.25% PF/ EPI 1:200,000 ONE ×2 (13:02→15:17)
[2024-01-01 13:06] VITALS: RESP 16
[2024-01-01] MEDS: Lactated Ringers 1,000 ML IV SCH (13:30)
[2024-01-01] MEDS ORDERED: Versed 2 MG/2 ML Injection ONE (14:20)
[2024-01-01] MEDS ORDERED: Magnesium Sulfate 1 GM/2 ML VIAL ONE (14:25)
[2024-01-01] MEDS ORDERED: OFIRMEV 100 ML IV ONE (14:25)
[2024-01-01] MEDS ORDERED: Ketamine HCl 50 MG/ML ONE (14:28)
[2024-01-01] MEDS ORDERED: BRIDION 200MG/2ML IV ONE (14:29)
[2024-01-01] MEDS ORDERED: Xylocaine-Mpf 2% 5 Ml Vial ONE (14:29)
[2024-01-01] MEDS ORDERED: DIPRIVAN 200 MG/20 ML IV ONE (14:29)
[2024-01-01] MEDS ORDERED: SUBLIMAZE 100 MCG/2 ML ONE (14:29)
[2024-01-01] MEDS ORDERED: Decadron 4 MG INJ ONE (14:29)
[2024-01-01] MEDS ORDERED: ROCURONIUM BROMIDE IV ONE (14:29)
[2024-01-01] MEDS ORDERED: Zofran 4 MG/2 ML VIAL ONE (14:29)
[2024-01-01] MEDS ORDERED: TORAdol 30 mg Injection ONE (14:29)
[2024-01-01] MEDS ORDERED: KEFZOL 1 GM ONE (14:41)
[2024-01-01] MEDS ORDERED: DEXMEDETOMIDINE 80 MCG/20ML-NS IV ONE (14:46)
[2024-01-01] MEDS ORDERED: Ephedrine Sulfate 50 MG/ML ONE (14:54)
[2024-01-01] MEDS ORDERED: Hydromorphone 1 mg/ml Injection ONE ×2 (15:38→16:04)
[2024-01-01] MEDS ORDERED: PITRESSIN 20 UNITS ONE (15:46)
[2024-01-01 16:39] VITALS: TEMP 98.1; O2SAT 95
[2024-01-01 17:02] VITALS: BP 102/70; PULSE 74
--- NOTE | 2024-01-04 09:32 | OP ---
SURGERY DATE/TIME: 01/01/2024 [id number] PREOPERATIVE DIAGNOSIS: Left forearm laceration with 15 and 5 cm lacerations for a total of 20 cm laceration involving skin, subcutaneous tissue, and muscle fascia. POSTOPERATIVE DIAGNOSIS: Left forearm laceration with 15 and 5 cm lacerations for a total of 20 cm laceration involving skin, subcutaneous tissue, and muscle fascia. PROCEDURE: Repair of left 20 cm forearm laceration with complex closure. SURGEON: Jarret Rose MD ANESTHESIA: General. ESTIMATED BLOOD LOSS: Zero. FLUIDS: Per the Anesthesia records. SPECIMENS: None. DRAINS: None. COMPLICATIONS: None. FINDINGS: An oblique laceration along the lateral elbow extending posteriorly, which was about 15 cm long, and a separate 5 cm oblique incision which almost met the other incision with about 1 cm bridge between them. The muscle fascia was lacerated but no nerves or arteries were seen cut. This was the muscle of the common extensor compartment. INDICATIONS: The patient is a 53-year-old white female who lacerated her forearm about 6 hours ago. It was felt it should be repaired to restore function and to prevent infection. DESCRIPTION OF PROCEDURE AND FINDINGS: The patient was seen in the holding room. Identified the left elbow as correct; this was initialed by me. She had 2 g of Kefzol. She was taken to the OR where she had general anesthesia and was positioned supine with a harden bag in a lazy lateral position. She had sterile prepping and draping of her left upper extremity. Had a tourniquet around but it was not used. A time-out was performed by me. The wound was inspected. A small bleeder was cauterized with Bovie. The wound was then irrigated with bulb syringe with saline and then the muscle fascia was closed loosely with interrupted 0 Vicryl, then the subcutaneous with 2-0 Vicryl, and the skin with 3-0 nylon interrupted, leaving gaps enough for drainage in all layers. The patient then had sterile dressing applied and was repositioned supine. PLAN: For patient to work on range of motion. She will leave the dressing on for 3 days and then may change. She may not shower for 5 days. She will go home on [place] 7.5 mg 1 p.o. every 4 hours. Dispensed #20. Return in 10 to 12 days for suture removal.
== END 2024-01-01 17:10 | disposition home or self-care (01) ==
LOC: SDC 12:25
PROVIDERS: ATTEND Orthopaedic Surgery
DX: S51.812A Laceration without foreign body of left forearm, initial encounter (principal); E11.9 Type 2 diabetes mellitus without complications
CPT/HCPCS: 13121; 13122; 82947; J0690; J1100; J1170; J1885; J2250; J2405; J2704; J3010; J3475